=== PATIENT | male | born 1935 | race Caucasian/White ===

== ENCOUNTER 2022-06-22 10:55 | Outpatient (CLI) | payer MEDICARE, SELFPAY ==
[2022-06-22 18:44] LABS: Basophils Absolute Auto 0.1 K/mm3 (0.0-0.1); Basophils Percent Auto 0.8 % (0.2-1.2); Eosinophils Absolute Auto 0.1 K/mm3 (0-0.3); Eosinophils Percent Auto 1.5 % (0-4.4); Hematocrit 42.7 % (42.0-52.0); Hemoglobin 13.1 g/dL (14.0-18.0); Immature Granulocyte Absolute 0.02 K/mm3 (0.00-0.031); Immature Granulocyte Percent A 0.3 % (0-0.5); Lymphocytes Absolute Auto 1.01 K/mm3 (0.9-3.2); Lymphocytes Percent Auto 17.1 % (18.3-44.2); Mean Corpuscular HGB Conc 30.7 g/dl (32-36); Mean Corpuscular Hemoglobin 28.5 pg (26-34); Mean Platelet Volume 9.6 fl (7.4-10.4); Monocytes Absolute Auto 0.5 K/mm3 (0.1-0.6); Monocytes Percent Auto 8.8 % (2.6-8.5); Neutrophils Absolute Auto 4.2 K/mm3 (1.3-6.7); Neutrophils Percent Auto 71.5 % (45.5-73.1); Platelet Count Result 204 k/mm3 (150-375); Red Blood Count 4.59 M/mm3 (4.6-6.20); Red Cell Distribution Width 15.9 % (11.5-14.5); White Blood Count 5.9 K/mm3 (4.5-10.0)
[2022-06-22 19:03] LABS: Alanine Aminotransferase 15 U/L (6-50); Albumin Level 4.2 g/dL (3.5-5.1); Alkaline Phosphatase 114 U/L (38-126); Anion Gap 9 mmol/L (8-16); Aspartate Amino Transferase 71 U/L (17-59); Bilirubin,Total 1.1 mg/dL (0.2-1.3); Blood Urea Nitrogen 12 mg/dL (9-20); Calcium 9.3 mg/dL (8.4-10.2); Carbon Dioxide 30 mmol/L (22-30); Chloride 103 mmol/L (98-107); Cholesterol 166 mg/dL (0-200); Estimated Glomerular Filt Rate > 60; Glucose 80 mg/dL (65-110); HDL Direct 42 mg/dL; Potassium 4.2 mmol/L (3.4-5.0); Sodium 142 mmol/L (137-145); Triglycerides 91 mg/dL (<150)
[2022-06-22 19:14] LABS: LDL Cholesterol Direct 85 mg/dL
[2022-06-22 19:34] LABS: Prostate Specific Antigen 9.6 ng/mL (< OR = 4.0)
== END 2022-06-22 10:56 | disposition home or self-care (01) ==
PROVIDERS: PCP Family Medicine; Visit Provider Family Medicine
DX: F41.9 Anxiety disorder, unspecified (principal); I10 Essential (primary) hypertension; Z12.5 Encounter for screening for malignant neoplasm of prostate
CPT/HCPCS: 36415; 80053; 80061; 84153; 85025; G0103

== ENCOUNTER 2022-07-19 10:37 | Outpatient (CLI) | payer MEDICARE, SELFPAY ==
[2022-07-19 19:22] LABS: Alanine Aminotransferase 14 U/L (6-50); Albumin Level 4.2 g/dL (3.5-5.1); Alkaline Phosphatase 111 U/L (38-126); Aspartate Amino Transferase 18 U/L (17-59); Bilirubin,Total 1.3 mg/dL (0.2-1.3)
[2022-07-19 19:53] LABS: Prostate Specific Antigen 8.1 ng/mL (< OR = 4.0)
[2022-07-19 20:52] LABS: Hepatitis B Surface Antigen Negative (Negative)
[2022-07-19 20:58] LABS: HAV RESULT Negative (Negative); Hepatitis B Core IgM Result Negative (Negative)
[2022-07-19 21:10] LABS: Hepatitis C Virus Antibody Negative (Negative)
== END 2022-07-19 10:38 | disposition home or self-care (01) ==
LOC: ANHBWCLAB 10:39
PROVIDERS: PCP Family Medicine; Visit Provider Family Medicine
DX: R74.8 Abnormal levels of other serum enzymes (principal); Z12.5 Encounter for screening for malignant neoplasm of prostate; R74.01 Elevation of levels of liver transaminase levels
CPT/HCPCS: 36415; 80074; 80076; 84153; G0103

== ENCOUNTER 2022-08-25 01:19 | Day surgery (SDC) | payer MEDICARE, SELFPAY ==
[2022-08-13 14:15] VITALS: BMI 18.5
[2022-08-25 07:48] VITALS: BP 147/91; PULSE 73; RESP 20; TEMP 35.9; O2SAT 92; BMI 18.6
[2022-08-25] MEDS: LACTATED RINGERS 1,000 ML 150 ML IV CONT (07:59)
--- NOTE | 2022-08-25 08:01 | WPDANESEPPF ---
Anes - Initial Pre Proc Eval Procedure: Operation Date: 08/25/22 09:15 Proposed Procedures p Colonoscopy - Alexander Hinson MD Date/Time: 08/25/22 08:01 Surgeon: Alexander Hinson MD Pre Op Diagnosis: positive cologuard Patient Data Age: 87 Gender: M Height: 1.68 m Weight: 52.5 kg Last Vital Signs Temp 96.6 F L 08/25/22 07:48 Pulse 73 08/25/22 07:48 Resp 20 08/25/22 07:48 BP 147/91 H 08/25/22 07:48 Pulse Ox 92 08/25/22 07:48 O2 Del Method Nasal Cannula 08/25/22 07:48 O2 Flow Rate 3 08/25/22 07:48 Allergies Allergy/AdvReac Type Severity Reaction Status Date / Time No Known Allergies Allergy Verified 08/25/22 07:47 Home Medications Medication Instructions Recorded Confirmed Type amlodipine 5 mg tablet 5 mg PO DAILY #90 tabs 07/14/22 08/13/22 Rx losartan 100 1 tablet PO DAILY #90 tabs 07/14/22 08/13/22 Rx mg-hydrochlorothiazide 12.5 mg tablet trazodone 50 mg tablet 50 mg PO QHS PRN insomnia #90 tabs 07/20/22 08/13/22 Rx albuterol sulfate 90 mcg/actuation 1 - 2 inh inhalation Q4-6H PRN 08/11/22 08/13/22 Rx aerosol inhaler shortness of breath or wheezing #8.5 grams fluticasone fur. 100 mcg-umeclid 1 inh inhalation Q24H #60 ea 08/11/22 08/13/22 Rx 62.5 mcg-vilant 25 mcg inhalat.powder (Trelegy Ellipta) fluticasone propionate 50 1 spray intranasal BID #16 grams 08/11/22 08/13/22 Rx mcg/actuation nasal spray,suspension (Allergy Relief (fluticasone)) alprazolam 0.25 mg BYMOUTH DAILY PRN Anxiety 08/16/22 08/25/22 Rx #30 tabs alprazolam 0.25 mg tablet 0.25 mg PO DAILY #30 tabs 08/16/22 08/25/22 Rx Patient hx anesthesia problems: none Family hx anesthesia problems: none Results Review: All pre-operative results and documents have been reviewed as part of the pre-operative evaluation. [facility] Family History Family History Father Hypertension Heart disease Social History Social History (Updated 07/19/22 @ 10:28 by Prem Alejandro APRN) Social History: Smokes 8-10 cigs/week on 1 day only. Smoking packs per day: 2 Smoking cigarettes per day: 40.0 Years smoked: 50 Smoking pack-years: 100.00 Smoking status: Former smoker Tobacco type: cigarettes Alcohol intake: never Substance use: never Substance use type: does not use Living arrangements: with family Additional living arrangements comments: with sonBryson Gender identity (if verbalized by the patient): Male Spiritual care concerns: No Agree to blood products: Yes Anes - Eval Final PreProcedure Day of Procedure 08/25/22 08:01 Patient weight: normal Heart: regular rate and rhythm Lungs: clear to auscultation Airway: Mallampati scale class II Neurological: alert and oriented Last oral intake: >/= 8 hours ASA classification: III Emergent: no Anesthetic plan: proceed Anesthesia type and monitoring: general GIVS and standard monitoring Results Review: All pre-operative results and documents have been reviewed as part of the pre-operative evaluation. Informed Consent: The patient's anesthetic plan and its attendant risks and benefits were discussed with the patient/family/POA. Questions were solicited and answers provided to the satisfaction of the patient/family/POA.
--- NOTE | 2022-08-25 08:52 | PM.HPGS ---
History of Present Illness History of Present Illness Consent: Risks, benefits, and alternatives have been discussed and questions answered. Patient agrees to proceed with procedure. Chief complaint: positive cologuard Narrative: Shorty Sheldon is a 87 year old male here for positive cologuard, last colonoscopy 20 years ago Review of Systems Constitutional: Constitutional: Denies headache(s) and Denies weakness Eyes: Eyes: Denies blurry vision ENT: Reports Normal hearing present, Denies headache(s) and Denies neck pain Cardiovascular: Cardiovascular: Denies chest pain and Denies dyspnea Respiratory: Respiratory: Denies dyspnea Gastrointestinal: Gastrointestinal: Reports no additional gastrointestinal complaints Genitourinary: Genitourinary: Denies dysuria Musculoskeletal: Musculoskeletal: Denies neck pain Integumentary/Breasts: Skin/Breast: Denies dry skin Neurologic: Reports Normal hearing present, Denies headache(s) and Denies weakness Psychiatric: Psychiatric: Denies anxiety Endocrine: Endocrine: Denies change in body appearance Hematologic/Lymphatic: Hematologic/Lymphatic: Denies easy bleeding Allergic/Immunologic: Allergic/Immunologic: Denies urticaria [facility] Family History Family History Father Hypertension Heart disease Social History Social History (Updated 07/19/22 @ 10:28 by Prem Alejandro, GRAZYNA) Social History: Smokes 8-10 cigs/week on 1 day only. Smoking packs per day: 2 Smoking cigarettes per day: 40.0 Years smoked: 50 Smoking pack-years: 100.00 Smoking status: Former smoker Tobacco type: cigarettes Alcohol intake: never Substance use: never Substance use type: does not use Living arrangements: with family Additional living arrangements comments: with sonBryson Gender identity (if verbalized by the patient): Male Spiritual care concerns: No Agree to blood products: Yes Meds Home Medications and Allergies Home Medications Medication Instructions Recorded Confirmed Type amlodipine 5 mg tablet 5 mg PO DAILY #90 tabs 07/14/22 08/13/22 Rx losartan 100 1 tablet PO DAILY #90 tabs 07/14/22 08/13/22 Rx mg-hydrochlorothiazide 12.5 mg tablet trazodone 50 mg tablet 50 mg PO QHS PRN insomnia #90 tabs 07/20/22 08/13/22 Rx albuterol sulfate 90 mcg/actuation 1 - 2 inh inhalation Q4-6H PRN 08/11/22 08/13/22 Rx aerosol inhaler shortness of breath or wheezing #8.5 grams fluticasone fur. 100 mcg-umeclid 1 inh inhalation Q24H #60 ea 08/11/22 08/13/22 Rx 62.5 mcg-vilant 25 mcg inhalat.powder (Trelegy Ellipta) fluticasone propionate 50 1 spray intranasal BID #16 grams 08/11/22 08/13/22 Rx mcg/actuation nasal spray,suspension (Allergy Relief (fluticasone)) alprazolam 0.25 mg BYMOUTH DAILY PRN Anxiety 08/16/22 08/25/22 Rx #30 tabs alprazolam 0.25 mg tablet 0.25 mg PO DAILY #30 tabs 08/16/22 08/25/22 Rx Allergies Allergy/AdvReac Type Severity Reaction Status Date / Time No Known Allergies Allergy Verified 08/25/22 07:47 Vital Signs Vital Signs - 24 hr 08/25/22 07:48 Temperature 96.6 F L Pulse Rate 73 Respiratory Rate 20 Blood Pressure 147/91 H Pulse Oximetry 92 Oxygen Delivery Nasal Cannula Oxygen Flow Rate 3 Exam Const: General: comfortable and no acute distress HENMT: Face/Nose/Sinus: Normal nares present Eyes: General: appearance normal, both eyes and all related structures Neck: Neck: no JVD Resp: Auscultation: clear to auscultation bilaterally Cardio: Rate: regular rate Rhythm: regular rhythm GI: Inspection: non-distended GI Palp: Yes Soft to palpation Skin: General skin exam: normal color Neuro: General: gait normal Speech: normal speech Extrem: General: normal to inspection Psych: Mental Status: mental status grossly normal Assessment and Plan Assessment and plan (1) Positive colorectal cancer screening using Cologuar
[2022-08-25 09:22] VITALS: BP 95/54; PULSE 69; RESP 19; O2SAT 100
[2022-08-25 09:32] VITALS: BP 104/57; PULSE 71; RESP 25; O2SAT 95
[2022-08-25 09:42] VITALS: BP 129/67; PULSE 65; RESP 24; O2SAT 94
== END 2022-08-25 09:54 | disposition home or self-care (01) ==
PROVIDERS: PCP Family Medicine; Visit Provider Internal Medicine Gastroenterology
PROC: 0DJD8ZZ Inspection of Lower Intestinal Tract, Via Natural or Artificial Opening Endoscopic (ICD-10-PCS; CPT 45378; principal; 2022-08-25 09:15)
DX: R19.5 Other fecal abnormalities (principal); D12.0 Benign neoplasm of cecum; D12.4 Benign neoplasm of descending colon; D12.2 Benign neoplasm of ascending colon; K57.30 Diverticulosis of large intestine without perforation or abscess without bleeding; K64.8 Other hemorrhoids; Z79.51 Long term (current) use of inhaled steroids; Z87.891 Personal history of nicotine dependence
CPT/HCPCS: 45385; 45380; 88305; J2704; J7120

== ENCOUNTER 2022-12-27 11:28 | Outpatient (CLI) | payer MEDICARE, SELFPAY ==
[2022-12-27 19:54] LABS: Alanine Aminotransferase 16 U/L (6-50); Albumin Level 4.2 g/dL (3.5-5.1); Alkaline Phosphatase 88 U/L (38-126); Anion Gap 4 mmol/L (8-16); Aspartate Amino Transferase 29 U/L (17-59); Bilirubin,Total 1.1 mg/dL (0.2-1.3); Blood Urea Nitrogen 21 mg/dL (9-20); Calcium 9.2 mg/dL (8.4-10.2); Carbon Dioxide 31 mmol/L (22-30); Chloride 105 mmol/L (98-107); Cholesterol 145 mg/dL (0-200); Estimated Glomerular Filt Rate 52; Glucose 93 mg/dL (65-110); HDL Direct 45 mg/dL; Potassium 4.6 mmol/L (3.4-5.0); Sodium 140 mmol/L (137-145); Triglycerides 99 mg/dL (<150)
[2022-12-27 19:58] LABS: Basophils Percent Auto 0.8 % (0.2-1.2); Eosinophils Absolute Auto 0.1 K/mm3 (0-0.3); Hematocrit 42.5 % (42.0-52.0); Hemoglobin 13.2 g/dL (14.0-18.0); Immature Granulocyte Absolute 0.01 K/mm3 (0.00-0.031); Immature Granulocyte Percent A 0.2 % (0-0.5); Lymphocytes Absolute Auto 0.92 K/mm3 (0.9-3.2); Lymphocytes Percent Auto 18.3 % (18.3-44.2); Mean Corpuscular HGB Conc 31.1 g/dl (32-36); Mean Corpuscular Volume 93.4 fl (80-100); Mean Platelet Volume 11.1 fl (7.4-10.4); Monocytes Absolute Auto 0.4 K/mm3 (0.1-0.6); Monocytes Percent Auto 8.3 % (2.6-8.5); Neutrophils Absolute Auto 3.6 K/mm3 (1.3-6.7); Neutrophils Percent Auto 71.4 % (45.5-73.1); Platelet Count Result 198 k/mm3 (150-375); Red Blood Count 4.55 M/mm3 (4.6-6.20); Red Cell Distribution Width 15.6 % (11.5-14.5)
[2022-12-27 20:05] LABS: LDL Cholesterol Direct 70 mg/dL
[2022-12-27 20:22] LABS: Prostate Specific Antigen 7.2 ng/mL (< OR = 4.0)
== END 2022-12-27 11:29 | disposition home or self-care (01) ==
PROVIDERS: PCP Family Medicine; Visit Provider Family Medicine
DX: J44.9 Chronic obstructive pulmonary disease, unspecified (principal); F41.9 Anxiety disorder, unspecified; I10 Essential (primary) hypertension; R74.8 Abnormal levels of other serum enzymes; R97.20 Elevated prostate specific antigen [PSA]; R19.5 Other fecal abnormalities; Z99.81 Dependence on supplemental oxygen; Z72.0 Tobacco use; Z12.5 Encounter for screening for malignant neoplasm of prostate
CPT/HCPCS: 36415; 80053; 80061; 84153; 85025; G0103

== ENCOUNTER 2023-01-26 09:53 | Outpatient (CLI) | payer MEDICARE, SELFPAY | END 2023-01-26 09:54 | disposition home or self-care (01) | PROVIDERS: PCP Family Medicine; Visit Provider Nurse Practitioner Family | DX: R97.20 Elevated prostate specific antigen [PSA] (principal); Z12.5 Encounter for screening for malignant neoplasm of prostate | CPT/HCPCS: 36415; 84153; G0103 ==

== ENCOUNTER 2023-07-25 08:05 | Outpatient (CLI) | payer MEDICARE, SELFPAY ==
[2023-07-25 19:13] LABS: Hematocrit 40.1 % (42.0-52.0); Hemoglobin 12.5 g/dL (14.0-18.0); Mean Corpuscular HGB Conc 31.2 g/dl (32-36); Mean Corpuscular Hemoglobin 29.5 pg (26-34); Mean Corpuscular Volume 94.6 fl (80-100); Mean Platelet Volume 10.8 fl (7.4-10.4); Platelet Count Result 209 k/mm3 (150-375); Red Blood Count 4.24 M/mm3 (4.6-6.20); Red Cell Distribution Width 14.5 % (11.5-14.5); White Blood Count 6.3 K/mm3 (4.5-10.0)
[2023-07-25 19:35] LABS: Alanine Aminotransferase 28 U/L (6-50); Albumin Level 4.2 g/dL (3.5-5.1); Alkaline Phosphatase 134 U/L (38-126); Anion Gap 2 mmol/L (8-16); Aspartate Amino Transferase 49 U/L (17-59); Bilirubin,Total 1.1 mg/dL (0.2-1.3); Blood Urea Nitrogen 28 mg/dL (9-20); Calcium 9.3 mg/dL (8.4-10.2); Carbon Dioxide 38 mmol/L (22-30); Chloride 96 mmol/L (98-107); Estimated Glomerular Filt Rate 52; Glucose 107 mg/dL (65-110); Sodium 136 mmol/L (137-145)
[2023-07-25 19:58] LABS: Vitamin D 25 Hydroxy 40.9 ng/mL
[2023-07-25 20:08] LABS: Prostate Specific Antigen 13.4 ng/mL (< OR = 4.0)
== END 2023-07-25 08:06 | disposition home or self-care (01) ==
PROVIDERS: PCP Family Medicine; Visit Provider Family Medicine
DX: Z12.5 Encounter for screening for malignant neoplasm of prostate (principal); R97.20 Elevated prostate specific antigen [PSA]; I10 Essential (primary) hypertension; F41.9 Anxiety disorder, unspecified; J44.9 Chronic obstructive pulmonary disease, unspecified; R74.8 Abnormal levels of other serum enzymes; R19.5 Other fecal abnormalities; Z99.81 Dependence on supplemental oxygen; Z72.0 Tobacco use; Z79.899 Other long term (current) drug therapy
CPT/HCPCS: 36415; 80053; 82306; 84153; 85027; G0103

== ENCOUNTER 2024-01-29 19:17 | Inpatient (IN) | payer MEDICARE, SELFPAY ==
[2024-01-29] VITALS (7 sets, daily range): BP systolic 106–121; BP diastolic 55–63; PULSE 96–111; RESP 16–25; TEMP 35.9; O2SAT 93–97
--- NOTE | ~2024-01-29 | CT_ITS ---
EXAMINATION:CT diagnostic chest wo con DATE: 01/30/2024 13:30 INDICATION: Chronic obstructive pulmonary disease. TECHNIQUE: Computed tomography (CT) of the chest was performed without intravenous contrast. Automate d exposure control and iterative reconstruction technique were employed. The dose-length product (DLP ) was 153.92 mGy-cm. COMPARISON: Chest single view 01/29/2024 FINDINGS: There is severe emphysema. There is mild scarring at right lung apex. There is mild atelect asis bilaterally. There are peripheral airspace opacities in right upper lobe and right lower lobe. T here is a small right pleural effusion. There is a trace left pleural effusion. The heart size is nor mal. There are coronary artery calcifications. There is a trace pericardial effusion. Calcified left hilar and mediastinal lymph nodes are consistent with old granulomatous disease. There is a borderlin e enlarged right paratracheal lymph node, likely reactive. There are cysts in the kidneys measuring u p to 2.7 cm on the left. There is calcified atherosclerosis of the aorta and many of the other arteri es. There is thoracic kyphosis and mild spondylosis. IMPRESSION: 1. Mild peripheral airspace opacities in right upper lobe and right lower lobe, consistent with pneum onia. Noncontrast low-dose chest CT is recommended in 3 months to exclude malignancy. 2. Small right pleural effusion. 3. Severe emphysema. Reviewed, dictated and finalized at location E. IMPRESSION: 1. Mild peripheral airspace opacities in right upper lobe and right lower lobe, consistent with pneumonia. Noncontrast low-dose chest CT is recommended in 3 m onths to exclude malignancy. 2. Small right pleural effusion. 3. Severe emphysema.
--- NOTE | ~2024-01-29 | XR_ITS ---
EXAMINATION: XR chest 1V portable DATE: 01/29/2024 20:59 INDICATION: Altered mental status. TECHNIQUE: A single frontal view of the chest was obtained on 2 radiographs. COMPARISON: None. FINDINGS: The lungs are hyperexpanded with lucencies, consistent with emphysema. There are interstiti al opacities in the mid and lower lung zones. No pleural effusion or pneumothorax. The heart size is normal. IMPRESSION: 1. Emphysema. 2. Interstitial opacities in the mid and lower lung zones, consistent with atelectasis/scarring or le ss likely mild pulmonary edema. Reviewed, dictated and finalized at location E. IMPRESSION: 1. Emphysema. 2. Interstitial opacities in the mid and lower lung zones, consistent with atel ectasis/scarring or less likely mild pulmonary edema.
--- NOTE | ~2024-01-29 | CT_ITS ---
EXAMINATION: CT brain wo con DATE: 01/29/2024 22:09 INDICATION: Altered mental status. Lethargy. TECHNIQUE: Computed tomography (CT) of the head was performed without intravenous contrast. The mA wa s adjusted according to patient size. Iterative reconstruction technique was employed. The dose-lengt h product was 681.00 mGy-cm. COMPARISON: None FINDINGS: There is diffuse brain volume loss. There is no acute intracranial hemorrhage, acute infarc tion, or abnormal intracranial mass lesion. There is prominent extra-axial fluid adjacent to the fron awilda lobes measuring up to 11 mm in thickness on the left and 7 mm in thickness on the right. There ar e scattered areas of low attenuation in the cerebral white matter, which is within normal limits for the patient's age. The ventricles are normal in size. There is mild mucosal thickening in the ethmoid sinuses. There is a left mastoid effusion. There is cerumen in left external auditory canal. The orb its are normal. IMPRESSION: 1. Prominent extra-axial fluid adjacent to the frontal lobes, which may be normal subarachnoid space with brain volume loss or small chronic subdural hematomas. Reviewed, dictated and finalized at location E. IMPRESSION: 1. Prominent extra-axial fluid adjacent to the frontal lobes, which may be norm al subarachnoid space with brain volume loss or small chronic subdural hematoma s.
[2024-01-29 20:12] LABS: Alveolar/Arterial O2 Gradient 121.6 mmHg; Base Excess ABG 2.3 mEq/l (+/-2.0); Fractional Inspired Oxygen 44 %; HCO3 ABG 31.1 mEq/l (22.0-26.0); Oxygen Content ABG 15.3 %vol (16.0-22.0); Oxygen Saturation ABG 97.1 % (95.0-100.0); Oxyhemoglobin 95.8 % THb (90.0-100.0); PO2 ABG 109.7 mmHg (80.0-100.0); PO2 FiO2 Ratio Arterial Blood 2.49 %; Total Hemoglobin 11.2 g/dL (12.0-18.0)
[2024-01-29 20:14] LABS: Device NASAL CANNULA; Modified Allen's Test Pass; PCO2 ABG 72.3 mmHg (35.0-45.0); Site Drawn RIGHT RADIAL; pH ABG 7.251 (7.350-7.450)
[2024-01-29 20:50] LABS: Basophils Percent Auto 0.7 % (0.2-1.2); Eosinophils Absolute Auto 0.1 K/mm3 (0-0.3); Eosinophils Percent Auto 0.9 % (0-4.4); Hematocrit 35.7 % (42.0-52.0); Hemoglobin 10.7 g/dL (14.0-18.0); Immature Granulocyte Absolute 0.02 K/mm3 (0.00-0.031); Immature Granulocyte Percent A 0.4 % (0-0.5); Lymphocytes Absolute Auto 0.98 K/mm3 (0.9-3.2); Lymphocytes Percent Auto 17.8 % (18.3-44.2); Mean Corpuscular Hemoglobin 28.6 pg (26-34); Mean Corpuscular Volume 95.5 fl (80-100); Mean Platelet Volume 10.6 fl (7.4-10.4); Monocytes Absolute Auto 0.5 K/mm3 (0.1-0.6); Monocytes Percent Auto 9.4 % (2.6-8.5); Neutrophils Absolute Auto 3.9 K/mm3 (1.3-6.7); Neutrophils Percent Auto 70.8 % (45.5-73.1); Platelet Count Result 231 k/mm3 (150-375); Red Blood Count 3.74 M/mm3 (4.6-6.20); White Blood Count 5.5 K/mm3 (4.5-10.0)
[2024-01-29 21:00] LABS: Alanine Aminotransferase 19 U/L (6-50); Albumin Level 3.8 g/dL (3.5-5.1); Alkaline Phosphatase 113 U/L (38-126); Anion Gap 3 mmol/L (4-12); Aspartate Amino Transferase 20 U/L (17-59); Bilirubin,Total 0.8 mg/dL (0.2-1.3); Blood Urea Nitrogen 26 mg/dL (9-20); Calcium 9.5 mg/dL (8.4-10.2); Carbon Dioxide 33 mmol/L (22-30); Chloride 103 mmol/L (98-107); Estimated CRCL calculation 20 ml/min; Estimated Glomerular Filt Rate 48; Glucose 101 mg/dL (65-110); Magnesium 2.2 mg/dL (1.6-2.3); Potassium 4.2 mmol/L (3.4-5.0); Sodium 139 mmol/L (137-145)
[2024-01-29 21:07] LABS: Prothrombin Time 14.2 Seconds (11.1-14.7)
[2024-01-29 21:08] LABS: Partial Thromboplastin Time 38.6 Seconds (22.3-36.8)
[2024-01-29 21:13] LABS: NT Pro B Type Natriuretic Pept 3220 pg/mL (19.9-100); Troponin I 0.052 ng/mL (0.000-0.034)
[2024-01-29 21:25] LABS: Procalcitonin 0.1 ng/mL
[2024-01-29 21:28] LABS: Appearance Urine Clear (Clear); Bacteria Urine None Seen /hpf; Bilirubin Urine Negative (Negative); Blood Urine Negative (Negative); Color Urine Yellow (Yellow); Glucose Urine UA Negative (Negative); Ketones Urine Negative (Negative); Leukocyte Esterase Ur Negative LEU/UL (Negative); Need Manual Microscopic Reviewed; Nitrate Urine Negative (Negative); Protein Urine 1+ mg/dL (Negative); RBC Urine 0-2 /hpf (0-2); Specific Grav Ur 1.012 (1.001-1.035); Squamous Epithelial Cell Urine None Seen /hpf (Few); Urobilinogen Urine 0.2 mg/dL (<2.0); WBC Urine 0-5 /hpf (0-3); pH Urine 5.5 (5.0-9.0)
[2024-01-29 21:29] LABS: Add Urine Microscopic? YES
[2024-01-29] MEDS: SODIUM CHLORIDE 0.9% IV 1,000 ML 999 ML IV CONT (21:49)
--- NOTE | 2024-01-29 21:55 | PC.NURSE ---
Pt to CT at this time by RT and CT.
--- NOTE | 2024-01-29 22:21 | ED.GENADULT ---
HPI - General Adult General Chief complaint: Altered Mental Status Stated complaint: lethargy Time Seen by Provider: 01/29/24 19:35 History of Present Illness HPI narrative: Patient 88-year-old gentleman who presents emergency department chief complaint of altered mental status. Patient has prior history of COPD and smoked cigarettes yesterday the patient was less responsive this evening the family noticed that he would minimally interact with them. They report no fever no vomiting no complaints of chest pain or shortness of breath the patient is able answer questions with mildly verbally stimulated. Related Data Allergies Allergy/AdvReac Type Severity Reaction Status Date / Time No Known Allergies Allergy Verified 07/25/23 07:37 Review of Systems Review of Systems: A 10 system review of systems was completed on the patient and is negative except for what is stated in the HPI. Nursing and ancillary documentation was reviewed. [facility] Family History Family History Father Hypertension Heart disease Social History Social History Smoking packs per day: 3 Smoking cigarettes per day: 60.0 Years smoked: 55 Smoking pack-years: 165.00 Smoking status: Former smoker Tobacco type: cigarettes Second hand tobacco smoke exposure: Yes Smoking end date: 10/10/16 Alcohol intake: never Substance use: never Substance use type: does not use Lack of Transportation: No Lack of Food: Never True Current Housing: I Have Housing Concerned About Future Housing: No Difficulty Paying Gas/Electric Bills: No Difficulty Paying for Meds: No Currently Unemployed: No Education: High School Diploma/GED Difficulty w/ Childcare or Family Care: No Living arrangements: with family Additional living arrangements comments: with sonBryson Gender identity (if verbalized by the patient): Male Spiritual care concerns: No Agree to blood products: Yes Exam Narrative: GENERAL: Ill-appearing, thin, and in no acute distress. Slow to respond HEAD: Normocephalic, atraumatic. EYES: PERRLA and EOMI. ENT: Nares clear, no rhinorrhea or epistaxis. Mucous membranes moist. NECK: Supple. CHEST: Clear to auscultation. No respiratory distress. HEART: Regular rate and rhythm. No murmur heard. Normal peripheral pulses. ABDOMEN: Soft, nontender, nondistended, normal active bowel sounds. EXTREMITIES: Normal range of motion. No edema. SKIN: Warm, dry, no rash. NEURO: No focal deficits. Alert and oriented x3. PSYCH: Normal mood and affect. Course Vital Signs Vital signs: Vital Signs Temperature 35.9 C L 01/29/24 19:18 Pulse Rate 101 H 01/29/24 19:18 Respiratory Rate 20 01/29/24 19:18 Blood Pressure 121/59 L 01/29/24 19:18 Pulse Oximetry 97 01/29/24 19:18 Oxygen Delivery Nasal Cannula 01/29/24 19:18 Oxygen Flow Rate 4 01/29/24 19:18 Temperature 35.9 C L 01/29/24 19:18 Pulse Rate 104 H 01/29/24 23:56 Respiratory Rate 18 01/29/24 23:56 Blood Pressure 119/55 L 01/29/24 23:56 Pulse Oximetry 96 01/29/24 23:56 Oxygen Delivery BiPAP 01/29/24 20:29 Oxygen Flow Rate 4 01/29/24 19:18 Medical Decision Making [facility] Narrative Medical decision making narrative: Differential diagnosis includes pneumonia, CHF, COPD exacerbation, intracranial hemorrhage, ACS EKG showed new onset atrial fibrillation. 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 He was discussed with the patient's family overall goals of treatment reported the patient expressed many times that he is DNR and does not want extensive resuscitative performed not want intubation or CPR was discussed with the family that the chronic subdurals could be followed with MRI or could be managed conservatively. At this t
--- NOTE | 2024-01-29 22:25 | PC.NURSE ---
phlebotomy at bedside to get set of cultures and lactic acid
[2024-01-29] MEDS: ASPIRIN 81 MG CHEWABLE TABLET 324 MG PO (22:43)
[2024-01-29 22:51] LABS: Lactic Acid Reflex 1.4 mmol/L (0.7-2.0)
[2024-01-29 23:07] LABS: Troponin I 0.045 ng/mL (0.000-0.034)
[2024-01-29 23:21] LABS: Influenza A QL RT-PCR Negative (Negative); Influenza B QL RT-PCR Negative (Negative); RSV RNA, RT-PCR Negative (Negative); SARS-CoV-2 RNA PCR Negative (Negative)
[2024-01-30] VITALS (24 sets, daily range): BP systolic 107–158; BP diastolic 53–88; PULSE 58–119; RESP 16–27; TEMP 36.4–36.9; O2SAT 93–100; BMI 14.3
--- NOTE | 2024-01-30 01:04 | PC.NURSE ---
report called at 0029. RT to come to ED to xfr pt upstairs w this RN.
--- NOTE | 2024-01-30 01:51 | ADMGEN ---
This patient, Shorty Sheldon, was admitted to IMU Room 205-01. Patient/family oriented to hospital policies and general routines including ID bracelet, bed and alarms, visiting hours, pain management, procedures, bathroom and other care routines, personal items, smoking policy, room service/diet, and visiting hours. Information on how to activate the Rapid Response Team has been discussed. Patient/Family are encouraged to report perceived risks to care and to ask questions if they do not understand what they are told or what they should do.
[2024-01-30] MEDS: methylPREDNISolone SOD SUCC 125 MG VIAL IV PUSH (02:53)
[2024-01-30 03:27] LABS: Troponin I 0.041 ng/mL (0.000-0.034)
[2024-01-30 05:20] LABS: Alveolar/Arterial O2 Gradient 43.5 mmHg; Base Excess ABG -0.1 mEq/l (+/-2.0); Carboxyhemoglobin 0.1 % THb (0-2.0); Fractional Inspired Oxygen 28 %; HCO3 ABG 27.8 mEq/l (22.0-26.0); Oxygen Content ABG 14.9 %vol (16.0-22.0); Oxygen Saturation ABG 94.4 % (95.0-100.0); Oxyhemoglobin 94.8 % THb (90.0-100.0); PO2 ABG 82.7 mmHg (80.0-100.0); PO2 FiO2 Ratio Arterial Blood 2.95 %; Reduced Hemoglobin 5.1 %THb (0-5.0); Total Hemoglobin 11.1 g/dL (12.0-18.0)
[2024-01-30 05:22] LABS: Device NON-INVASIVE VENT; Modified Allen's Test Pass; PCO2 ABG 62.2 mmHg (35.0-45.0); Site Drawn RIGHT BRACHIAL; pH ABG 7.268 (7.350-7.450)
[2024-01-30 05:23] LABS: Non-Invasive Expiratory Pressure 8 CMH2O; Non-Invasive Inspiratory Pressure 12 CMH2O; Non-Invasive Vent Rate 18 /MIN
[2024-01-30] MEDS: IPRATROPIUM 0.5 MG/ALBUTEROL SULFATE 2.5 MG AMPUL.NEB 3 ML INHALATION (08:10)
[2024-01-30 08:33] LABS: Alveolar/Arterial O2 Gradient 49.4 mmHg; Base Excess ABG -2.6 mEq/l (+/-2.0); Fractional Inspired Oxygen 28 %; HCO3 ABG 25.2 mEq/l (22.0-26.0); Oxygen Content ABG 15.5 %vol (16.0-22.0); Oxygen Saturation ABG 94.1 % (95.0-100.0); Oxyhemoglobin 94.6 % THb (90.0-100.0); PCO2 ABG 58.2 mmHg (35.0-45.0); PO2 ABG 81.6 mmHg (80.0-100.0); PO2 FiO2 Ratio Arterial Blood 2.91 %; Total Hemoglobin 11.6 g/dL (12.0-18.0)
--- NOTE | 2024-01-30 08:34 | PM.IMHP ---
H&P: HPI History of Present Illness Date/Time: 01/30/24 08:34 Chief Complaint: altered mental status Narrative: Patient 88-year-old gentleman with history of COPD, tobacco dependent, hypertension, anxiety,who presents emergency department chief complaint of altered mental status.? patient family notice was less responsive yesterday. patient has history of COPD, smokes cigarettes. patient states he started to smoke cigarettes in past more days, and then patient started feeling tired, and also developed,dyspnea. since yesterday, patient has been feeling drowsy. patient has some cough, patient as dry cough. upon arrival in the ED, patient found have hypothermia, 35.6, tachycardia tachypnea, blood pressure stable, patient was found have hypoxemia, lab showed hemoglobin 10.7, elevated BUN creatinine 26/1.4, ABG showed decompensated respiratory acidosis, pH 7.25, pCO2 72.3. X-ray shows interstitial opacity. patient was placed on BiPAP PMFSH Family History Family History Father Hypertension Heart disease Social History Social History Smoking packs per day: 0.5 Smoking cigarettes per day: 10.0 Years smoked: 65 Smoking pack-years: 32.50 Smoking status: Current every day smoker Tobacco type: cigarettes Second hand tobacco smoke exposure: Yes Alcohol intake: former Substance use: never Substance use type: does not use Do You Feel Safe in your Home?: Yes Lack of Transportation: No Lack of Food: Never True Current Housing: I Have Housing Concerned About Future Housing: No Difficulty Paying Gas/Electric Bills: No Difficulty Paying for Meds: No Currently Unemployed: No Education: High School Diploma/GED Difficulty w/ Childcare or Family Care: No Living arrangements: with family Additional living arrangements comments: with sonBryson Gender identity (if verbalized by the patient): Male Spiritual care concerns: No Agree to blood products: Yes Meds Home Medications and Allergies Home Medications Medication Instructions Recorded Confirmed Type fluticasone fur. 100 mcg-umeclid 1 inh inhalation Q24H #60 ea 01/10/23 01/30/24 Rx 62.5 mcg-vilant 25 mcg inhalat.powder (Trelegy Ellipta) albuterol sulfate 2.5 mg/3 mL 2.5 mg (3 mL) inhalation Q6H PRN 06/14/23 01/30/24 Rx (0.083 %) solution for nebulization shortness of breath or wheezing #360 mL losartan 100 1 tablet PO DAILY #90 tabs 07/11/23 01/30/24 Rx mg-hydrochlorothiazide 12.5 mg tablet albuterol sulfate 90 mcg/actuation 1 - 2 inh inhalation Q4-6H PRN 09/08/23 01/30/24 Rx aerosol inhaler shortness of breath or wheezing #8.5 grams fluticasone propionate 50 1 spray intranasal BID #16 grams 09/08/23 01/30/24 Rx mcg/actuation nasal spray,suspension (Allergy Relief (fluticasone)) trazodone 50 mg tablet 50 mg PO QHS PRN insomnia #90 tabs 01/11/24 01/30/24 Rx alprazolam 0.25 mg tablet 0.25 mg PO DAILY PRN Anxiety 01/30/24 01/30/24 History Allergies Allergy/AdvReac Type Severity Reaction Status Date / Time No Known Allergies Allergy Verified 07/25/23 07:37 Vital Signs Vital Signs - 24 hr 01/29/24 19:18 01/29/24 20:29 01/29/24 20:27 Temperature 96.7 F L Pulse Rate 101 H Respiratory Rate 20 Blood Pressure 121/59 L Pulse Oximetry 97 94 93 Oxygen Delivery Nasal Cannula BiPAP BiPAP Oxygen Flow Rate 4 Fraction of Inspired Oxygen 01/29/24 20:25 01/29/24 22:27 01/29/24 23:14 Temperature Pulse Rate 102 H 96 111 H Respiratory Rate 25 H 20 16 Blood Pressure 106/63 107/63 Pulse Oximetry 94 97 95 Oxygen Delivery BiPAP Oxygen Flow Rate Fraction of Inspired Oxygen 01/29/24 23:56 01/30/24 01:06 01/30/24 01:38 Temperature Pulse Rate 104 H 105 H 64 Respiratory Rate 18 18 23 H Blood Pressure 119/55 L 107/88 Pulse Oximetry 96 96 Oxy
[2024-01-30 08:35] LABS: pH ABG 7.255 (7.350-7.450)
[2024-01-30 08:36] LABS: Device NON-INVASIVE VENT; Modified Allen's Test Pass; Non-Invasive Expiratory Pressure 8 CMH2O; Non-Invasive Inspiratory Pressure 12 CMH2O; Non-Invasive Vent Rate 18 /MIN; Site Drawn RIGHT RADIAL
[2024-01-30] MEDS: DOXYCYCLINE HYCLATE 100 MG TABLET PO ×2 (08:57→20:32)
[2024-01-30] MEDS: ASPIRIN 81 MG CHEWABLE TABLET PO (08:57)
[2024-01-30] MEDS: hydroCHLOROthiazide 12.5 MG CAPSULE PO (08:57)
[2024-01-30] MEDS: LOSARTAN POTASSIUM 100 MG TABLET PO (08:58)
[2024-01-30] MEDS: methylPREDNISolone SOD SUCC 125 MG VIAL 60 MG IV PUSH (08:58)
--- NOTE | 2024-01-30 09:06 | PM.CNPUL ---
Assessment and Plan Assessment and plan (1) COPD (chronic obstructive pulmonary disease): Qualifiers: COPD type: unspecified COPD Qualified Code(s): J44.9 - Chronic obstructive pulmonary disease, unspecified Code(s): J44.9 - Chronic obstructive pulmonary disease, unspecified Status: Acute Assessment and Plan: Gold grade 4 group B COPD Patient previously followed in the Pulmonary Clinic in last seen on 09/24/2022. He has 100 pack year tobacco use, alpha 1 anti trypsin genotype MM, FEV1 14% predicted on 06/04/2019 with a ratio 40%. DLCO severely reduced. At that time he was on trelegy inhaler and his CAT score improved from a value of 20-16. He was on 2 to 2.5 L 24-7. Patient tells me 2 weeks ago he was doing very well at his baseline. He was able to walk 75-100 steps and 1 year ago he said he could walk 250 steps. He stops now because of dyspnea on exertion. He is wearing 2 L nasal cannula 247 and he checks his home pulse oximeter is 96-98%. Granddaughters are in the room and they confirmed that the patient has not had any exacerbations or hospitalizations over the last year. Patient states that he intermittently smokes. He last smokes 6 cigarettes on 01/28/2024 but had smoked for 17 days prior to that. currently the patient presents with altered mental status, acute on chronic hypercarbic and hypoxemic respiratory failure, with no change in his chronic cough, phlegm production or shortness of breath. Patient responded to noninvasive ventilation. Plan: I do not believe the patient has a COPD exacerbation and I will discontinue Solu-Medrol at this time. Patient is tachycardic and I will discontinue his DuoNebs and continue trelegy 100 inhaler. goal saturation 90-94%. Patient states he wears 2 L at home and his saturations are generally high 98%. Currently I decreased him to 1 L nasal cannula and his saturations remain 96%. I have talked to the nurse and will try to wean him off to room air if possible during the day. The patient tells me he takes Mucinex at home and I will start guaifenesin 1200 mg p.o. q.12 hours. I will order a CT scan of the chest to assess for any bacterial pneumonia. I will order an echocardiogram to assess LV function, RV function and valve function. Will follow with you. (2) Respiratory failure with hypoxia and hypercapnia: Code(s): J96.91 - Respiratory failure, unspecified with hypoxia; J96.92 - Respiratory failure, unspecified with hypercapnia Status: Acute Assessment and Plan: Patient with a history of severe COPD. Serum bicarbonate on 07/25/2023 was 38. ABG on admission on 6 L nasal cannula was 7.25/72/110. This has improved on BiPAP to 7.26/50 with patient has difficulty tolerating the BiPAP and says he can not wear it and he can not sleep with the machine on. 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 The patient cannot tolerate BiPAP. Plan: The patient told me he cannot tolerate the BiPAP as is uncomfortable for him to breathe and he could not sleep. I placed the patient on a noninvasive ventilation mode and adjusted the settings for comfort resulting in a rate of 16, tidal volume 450, EPAP 4, minimal inspiratory pressure 5, maximal inspiratory pressure 25, inspiratory time 1.0, rise of 3, 28% FiO2 with saturations 99%. I will place the patient on the hospital noninvasive ventilator with the AVAPS mode and the settings above and room air. I will obtain an overnight oximetry on room air and ABG prior to removal. I have contacted the laboratory coordinator and will initiate a home noninvasive ventilator. History of Present Illness History of Present Illness Consult date: 01/30/24 Chief complaint: Acute hyper apneic respiratory failure elevated t Narrative: 01/30/2024: This is a new
--- NOTE | 2024-01-30 09:24 | ECG_ITS ---
SEE SCANNED COPY FOR CONFIRMED REPORT MTDD
--- NOTE | 2024-01-30 10:50 | ECHO_ITS ---
Patient Info Name: Shorty Sheldon Age: 88 years : 1935 Gender: Male Ht: 68 in Wt: 94 lbs BSA: 1.41 m2 HR: 58 bpm BP: 138 / 88 mmHg Heart Rhythm: Sinus Rhythm Technical Quality: Good Exam Date: 01/30/2024 2:16 PM Exam Location: Echo Lab Patient Status: Inpatient Admit Date: 01/30/2024 Staff Ordering Physician: Isaac Jang MD Diesel Retrofit Designer: Catalina Weinstein RDCS Attending Provider: Aminah Hunter MD Referring Physician: Suhail HOLCOMB; Exam Type: CA echo doppler color flow Study Info Indications - MEDINA, COPD Complete two-dimensional, color flow and Doppler transthoracic echocardiogram is performed. Summary 1. Left ventricular chamber dimension is normal. 2. Left ventricular systolic function is normal, estimated at 55-60%. 3. The left ventricular diastolic function is grade I diastolic dysfunction. 4. Right ventricular systolic function is normal. 5. There is mild aortic valve regurgitation. 6. There is mild tricuspid valve regurgitation. Left Ventricle Left ventricular chamber dimension is normal. Left ventricular systolic function is normal, estimated at 55-60%. There is no increased left ventricular wall thickness. The left ventricular diastolic function is grade I diastolic dysfunction. Right Ventricle Right ventricular chamber dimension is normal. Right ventricular systolic function is normal. Left Atria Left atrial chamber dimension is normal. Right Atria Right atrial chamber dimension is normal. Atrial Septum Intact interatrial septum visualized by color flow imaging. Aortic Valve The aortic valve is trileaflet. There is no aortic valve stenosis. There is mild aortic valve regurgitation. There is mild aortic valve calcification. Pulmonic Valve The pulmonic valve is not well visualized. Mitral Valve There is trace mitral valve regurgitation. Tricuspid Valve There is mild tricuspid valve regurgitation. Pericardium/Pleural There is no pericardial effusion. Inferior Vena Cava Normal inferior vena cava with >50% collapse upon inspiration consistent with normal right atrial pressure, 3 mmHg. Aorta The aortic root size at the sinus of Valsalva is normal. Left Ventricular Outflow Tract Name Value Normal LVOT 2D LVOT Diameter 2.1 cm LVOT Doppler LVOT Peak Gradient 2 mmHg LVOT Mean Gradient 1 mmHg LVOT VTI 10 cm LVOT VTI/AV VTI Ratio 0.5 LVOT Stroke Volume 34 ml LVOT CO 3.4 l/min LVOT CI 2.4 l/min/m2 Pulmonic Valve Name Value Normal RVOT Doppler RVOT Peak Gradient 2 mmHg PV Doppler PV Peak Gradient 3 mmHg Mitral Valve
--- NOTE | 2024-01-30 11:35 | PM.CNCAR ---
Assessment and Plan Assessment and plan (1) Atrial fibrillation: Code(s): I48.91 - Unspecified atrial fibrillation Status: Acute Assessment and Plan: He does have tachycardia and frequent atrial ectopy and premature ventricular contractions as well. However, no clear evidence of atrial fibrillation on telemetry or EKG. EKG personally reviewed by myself and Dr. Gaytan shows sinus tachycardia with frequent PAC's, PVC's, possible MAT as well. Atrial activity is present both on telemetry reviewed and EKG. Therefore, no need to consider anticoagulation. Given his severe underlying lung disease will not recommend any beta joshua for the tachycardia - since his respiratory condition is likely driving the tachycardia will recommend treatment of that per hospitalist any pulmonology. Echo has been ordered and is pending. Further recommendations to follow review of this study when it is available. (2) Respiratory failure with hypoxia and hypercapnia: Code(s): J96.91 - Respiratory failure, unspecified with hypoxia; J96.92 - Respiratory failure, unspecified with hypercapnia Status: Acute Assessment and Plan: ABG on admission 7.. He has severe COPD and possible pneumonia. He has improved with BiPAP and NIV, now on O2 per nasal cannula. (3) Atypical pneumonia: Code(s): J18.9 - Pneumonia, unspecified organism Status: Acute Assessment and Plan: Per pulmonology. (4) HTN (hypertension): Code(s): I10 - Essential (primary) hypertension Status: Acute Assessment and Plan: Generally at goal History of Present Illness History of Present Illness Consult date/time: 01/30/24 11:35 Requesting physician: Usman Christensen MD Consult reason: atrial fibrillation Reason For Visit: Acute hyper apneic respiratory failure elevated t Narrative: Shorty Sheldon is an 88 year old male with COPD and hypertension. He presents to the hospital with altered mental status and shortness of breath. Cardiology is consulted for atrial fibrillation. He denies having any known cardiac history aside from feeling skipped beats which were worked up with what sounds like with a stress test which he reports was negative. On telemetry he is tachycardic and has an irregular rhythm with frequent premature atrial and ventricular contractions, but does not have any clear evidence of atrial fibrillation. He denies feeling any palpitations or chest pain. Currently he is resting comfortably in bed on nasal cannula oxygen and has no complaints. He states his breathing has improved since admission. Review of Systems Review of Systems: All systems reviewed & are unremarkable except as noted in HPI and below PMFSH Family History Family History Father Hypertension Heart disease Social History Social History Smoking packs per day: 0.5 Smoking cigarettes per day: 10.0 Years smoked: 65 Smoking pack-years: 32.50 Smoking status: Current every day smoker Tobacco type: cigarettes Second hand tobacco smoke exposure: Yes Alcohol intake: former Substance use: never Substance use type: does not use Do You Feel Safe in your Home?: Yes Lack of Transportation: No Lack of Food: Never True Current Housing: I Have Housing Concerned About Future Housing: No Difficulty Paying Gas/Electric Bills: No Difficulty Paying for Meds: No Currently Unemployed: No Education: High School Diploma/GED Difficulty w/ Childcare or Family Care: No Living arrangements: with family Additional living arrangements comments: with sonBryson Gender identity (if verbalized by the patient): Male Spiritual care concerns: No Agree to blood products: Yes Meds Home Medications and Allergies Home Medications Medication Instructions Recorded Confirmed Type fluticasone
--- NOTE | 2024-01-30 13:50 | PCRCNOTE ---
DME- [facility]
--- NOTE | 2024-01-30 13:51 | PCRCNOTE ---
[facility]. I faxed ABG, pulmonary progress notes with verbiage for need of trilogy unit in home, face sheet to [facility] in office. He will fax over order form for Dr Jang to fill out and sign.
[2024-01-30] MEDS: FLUTICASONE PROPIONATE 0.05% NA SPR 16 GM BTL (*BKC) 1 SPRAY NASAL (15:59)
--- NOTE | 2024-01-30 19:00 | PC.NURSE ---
This nurse got report from Aline GRAF in the IMU.
--- NOTE | 2024-01-30 20:06 | PC.NURSE ---
This patient, Shorty Sheldon, was transferred to [facility] on 01/30/24. Personal belongings sent with patient. Report given to Aliyah. Appropriate documentation sent with patient.
[2024-01-30] MEDS: guaiFENesin 12 HR 600 MG TABCR 1200 MG PO (20:32)
[2024-01-31] VITALS (13 sets, daily range): BP systolic 126–179; BP diastolic 57–90; PULSE 48–113; RESP 18–24; TEMP 36.2–36.6; O2SAT 89–100
[2024-01-31 05:55] LABS: Alveolar/Arterial O2 Gradient 41.7 mmHg; Base Excess ABG 1.9 mEq/l (+/-2.0); Fractional Inspired Oxygen 21 %; HCO3 ABG 27.2 mEq/l (22.0-26.0); Oxygen Content ABG 12.6 %vol (16.0-22.0); PCO2 ABG 45.9 mmHg (35.0-45.0); PO2 ABG 53.1 mmHg (80.0-100.0); PO2 FiO2 Ratio Arterial Blood 2.53 %; Total Hemoglobin 10.4 g/dL (12.0-18.0); pH ABG 7.391 (7.350-7.450)
[2024-01-31 05:57] LABS: Oxyhemoglobin 86.3 % THb (90.0-100.0); Site Drawn RIGHT BRACHIAL
[2024-01-31 05:58] LABS: Device NON-INVASIVE VENT
[2024-01-31 05:59] LABS: Non-Invasive Vent Rate 16 /MIN
[2024-01-31 06:00] LABS: Non-Invasive Expiratory Pressure 4 CMH2O
[2024-01-31] MEDS: FLUTICASONE/UMECLIDIN/VILANTER 100-62.5-25 MCG ELLIPTA 1 PUFF INHALATION (07:36)
--- NOTE | 2024-01-31 08:07 | PM.IMPN ---
Progress Note: A&P Assessment and Plan (1) Acute and chronic respiratory failure, unspecified whether with hypoxia or hypercapnia: Code(s): J96.20 - Acute and chronic respiratory failure, unspecified whether with hypoxia or hypercapnia Status: Acute (2) COPD exacerbation: Code(s): J44.1 - Chronic obstructive pulmonary disease with (acute) exacerbation Status: Acute (3) Atypical pneumonia: Code(s): J18.9 - Pneumonia, unspecified organism Status: Acute (4) Tobacco use: Code(s): Z72.0 - Tobacco use Status: Acute (5) HTN (hypertension): Code(s): I10 - Essential (primary) hypertension Status: Acute Plan acute metabolic encephalopathy possible due to CO2 retention and polypharmacy CT of head shows no acute intracranial issues Neuro check Treat underlying disease COPD exacerbation, acute resp failure with hypoxemia and hypercapnia history of COPD, tobacco dependence X-ray shows interstitial opacity Possible atypical pneumonia , versus acute bronchitis continue fluticasone 50 mcg b.i.d., Trelegy Ellipta, DuoNeb scheduled q.6 hours, albuterol nebulizer q.4 hour as needed start doxycycline 100 mg b.i.d. p.o. Consult skirt trimmer for evaluation treatment appreciate pulmonology consultation, discontinue doxycycline and start ceftriaxone azithromycin, will provide patient AVAPS when patient is discharged new onset afib? appreciate cardiology consultation, consider MAT, possible resulting from COPD exacerbation, hypoxemia no need anticoagulation Follow echocardiogram anxiety Hold trazodone and Xanax because of her confusion Hypertension Continue losartan and hydrochlorothiazide daily p.o. patient may stay more than 2 midnights in the hospital Subjective Date/time seen: 01/31/24 08:07 Interval history: I saw and examined patient in presents of patient's son. Patient is feeling better, dyspnea is improving, still has a cough. Patient feels anxious. No new issue even overnight, Exam Narrative: GENERAL: Pleasant, in no acute distress. Well-nourished. - EYES: EOMI. Anicteric. - HENT: Moist mucous membranes. - LUNGS: decreased air entry bilateral, tachypnea no obvious respiratory distress - CARDIOVASCULAR: Regular rate and rhythm. No murmur. No JVD. - ABDOMEN: Soft, non-tender and non-distended. No palpable masses. - EXTREMITIES: No edema. Peripheral pulses 2+. Non-tender. - NEUROLOGIC: No focal neurological deficits. CN II-XII grossly intact. - PSYCHIATRIC: Awake, Alert and oriented x 3. Appropriate mood and affect. - SKIN: No rashes or lesions. Warm. - LYMPH: No cervical lymphadenopathy. Objective Data Vital Signs Vital Signs: Vital Signs - 24 hr 01/30/24 09:00 01/30/24 08:40 01/30/24 09:19 Temperature Pulse Rate 84 79 Respiratory Rate 20 20 Blood Pressure Pulse Oximetry 97 Oxygen Delivery Nasal Cannula Oxygen Flow Rate 2 Fraction of Inspired Oxygen 01/30/24 11:24 01/30/24 10:00 01/30/24 12:00 Temperature 98.5 F Pulse Rate 58 L 101 H Respiratory Rate 20 Blood Pressure 158/88 H Pulse Oximetry 93 94 Oxygen Delivery Nasal Cannula Oxygen Flow Rate 1 Fraction of Inspired Oxygen 01/30/24 12:00 01/30/24 15:28 01/30/24 16:00 Temperature 98.1 F Pulse Rate 58 L 60 119 H Respiratory Rate 18 Blood Pressure 138/63 Pulse Oximetry 100 Oxygen Delivery Oxygen Flow Rate Fraction of Inspired Oxygen 01/30/24 20:12 01/30/24 20:00 01/30/24 21:45 Temperature 98.4 F Pulse Rate 79 85 75 Respiratory Rate 16 21 H Blood Pressure 133/87 Pulse Oximetry 98 93 Oxygen Delivery BiPAP Oxygen Flow Rate Fraction of Inspired Oxygen 01/31/24 00:00 01/31/24 04:00 01/31/24 05:00 Temperature 97.8 F Pulse Rate 104 H 93 51 L Respiratory Rate 24 H Blood Pressure 126/57 L Pulse Oximetry 93 Oxygen Delivery Oxygen Flow Rate Fraction
[2024-01-31] MEDS: FLUTICASONE PROPIONATE 0.05% NA SPR 16 GM BTL (*BKC) 1 SPRAY NASAL ×2 (08:28→17:05)
[2024-01-31] MEDS: ASPIRIN 81 MG CHEWABLE TABLET PO (08:28)
[2024-01-31] MEDS: LOSARTAN POTASSIUM 100 MG TABLET PO (08:36)
[2024-01-31] MEDS: guaiFENesin 12 HR 600 MG TABCR 1200 MG PO ×2 (08:36→20:36)
[2024-01-31] MEDS: hydroCHLOROthiazide 12.5 MG CAPSULE PO (08:36)
--- NOTE | 2024-01-31 09:06 | PM.PNPUL ---
Progress Note: A&P Assessment and Plan (1) COPD (chronic obstructive pulmonary disease): Qualifiers: COPD type: unspecified COPD Qualified Code(s): J44.9 - Chronic obstructive pulmonary disease, unspecified Code(s): J44.9 - Chronic obstructive pulmonary disease, unspecified Status: Acute Assessment and Plan: Gold grade 4 group B COPD Patient previously followed in the Pulmonary Clinic in last seen on 09/24/2022. He has 100 pack year tobacco use, alpha 1 anti trypsin genotype MM, FEV1 14% predicted on 06/04/2019 with a ratio 40%. DLCO severely reduced. CT scan on 01/30/2024 with severe panlobular emphysema apices greater than bases. At that time he was on trelegy inhaler and his CAT score improved from a value of 20-16. He was on 2 to 2.5 L 24-7. He now has chronic hypercarbic respiratory failure. Patient tells me 2 weeks ago he was doing very well at his baseline. He was able to walk 75-100 steps and 1 year ago he said he could walk 250 steps. He stops now because of dyspnea on exertion. He is wearing 2 L nasal cannula 247 and he checks his home pulse oximeter is 96-98%. Granddaughters are in the room and they confirmed that the patient has not had any exacerbations or hospitalizations over the last year. Patient states that he intermittently smokes. He last smokes 6 cigarettes on 01/28/2024 but had smoked for 17 days prior to that. currently the patient presents with altered mental status, acute on chronic hypercarbic and hypoxemic respiratory failure, with no change in his chronic cough, phlegm production or shortness of breath. Patient responded to noninvasive ventilation. 01/29: Plan: I do not believe the patient has a COPD exacerbation and I will discontinue Solu-Medrol at this time. Patient is tachycardic and I will discontinue his DuoNebs and continue trelegy 100 inhaler. goal saturation 90-94%. Patient states he wears 2 L at home and his saturations are generally high 98%. Currently I decreased him to 1 L nasal cannula and his saturations remain 96%. I have talked to the nurse and will try to wean him off to room air if possible during the day. The patient tells me he takes Mucinex at home and I will start guaifenesin 1200 mg p.o. q.12 hours. I will order a CT scan of the chest to assess for any bacterial pneumonia. I will order an echocardiogram to assess LV function, RV function and valve function. 01/31/24: States he is breathing at his baseline. He denies cough, phlegm production or hemoptysis. When I enter the room he is on 1 L with saturations 98%. I decreased him to room air and after 4 minutes he desaturated to 89% and I returned him to [address] scan demonstrated severe panlobular emphysema all lung arellano 8 the sees greater than bases, right upper lobe and lower lobe airspace opacities most consistent with pneumonia. Small right pleural effusion. patient started on ceftriaxone and azithromycin. Plan: No wheezing on exam. Breathing at his baseline. Saturating well on 1 L nasal cannula. Continue trilogy 100 inhaler, guaifenesin 1200 mg p.o. b.i.d.. Goal saturation 90-94%. CT scan with possible pneumonia versus cancer and will Discontinue doxycycline, started 01/29, and initiate treatment with ceftriaxone and azithromycin, day 1. Discussed with Dr. Christensen, will follow with you. (2) Respiratory failure with hypoxia and hypercapnia: Code(s): J96.91 - Respiratory failure, unspecified with hypoxia; J96.92 - Respiratory failure, unspecified with hypercapnia Status: Acute Assessment and Plan: Patient with a history of severe COPD. Serum bicarbonate on 07/25/2023 was 38. ABG on admission on 6 L nasal cannula was 7.25/72/110. This has improved on BiPAP to 7.26/50 with patient has difficulty tolerating the BiPAP and says he can not wear it and he can not sleep with the machine on. The patient has chronic hypercarbic respiratory failure
[2024-01-31] MEDS: AZITHROMYCIN 500 MG/NS 250 ML 500 MG/250 ML BAG 250 MG IVPB (09:19)
--- NOTE | 2024-01-31 09:56 | PCRCNOTE ---
Faxed Trilogy order form to [facility]. Awaiting call back in regards to set-up trial day in hospital and estimated delivery/approval. Scanned paper order form into EMR.
[2024-01-31] MEDS: ALPRAZolam (*CRX) 0.5 MG TABLET PO (13:16)
--- NOTE | 2024-01-31 14:01 | PCRCNOTE ---
[facility] WILL BE IN TODAY TO SET UP PATIENT ON HOME TRILOGY UNIT FOR A TRIAL TONIGHT PRIOR TO D/C HOME.
[2024-02-01] VITALS (15 sets, daily range): BP systolic 133–177; BP diastolic 67–93; PULSE 56–114; RESP 18–22; TEMP 36.3–36.6; O2SAT 91–100
[2024-02-01 05:01] LABS: Alveolar/Arterial O2 Gradient 70.4 mmHg; Base Excess ABG 3.7 mEq/l (+/-2.0); Fractional Inspired Oxygen 32 %; Oxygen Content ABG 16.5 %vol (16.0-22.0); Oxygen Saturation ABG 97.7 % (95.0-100.0); Oxyhemoglobin 96.3 % THb (90.0-100.0); PCO2 ABG 47.2 mmHg (35.0-45.0); PO2 ABG 102.5 mmHg (80.0-100.0); Total Hemoglobin 12.1 g/dL (12.0-18.0); pH ABG 7.407 (7.350-7.450)
--- NOTE | 2024-02-01 05:22 | PCRCNOTE ---
patient was unable to tolerate use of Trilogy unit; patient stated that he was unable to breathe; oximetry study was completed with use of V60
[2024-02-01 06:26] LABS: Site Drawn RIGHT BRACHIAL
[2024-02-01 06:27] LABS: Device OTHER DEVICE
[2024-02-01] MEDS: FLUTICASONE/UMECLIDIN/VILANTER 100-62.5-25 MCG ELLIPTA 1 PUFF INHALATION (07:45)
[2024-02-01] MEDS: FLUTICASONE PROPIONATE 0.05% NA SPR 16 GM BTL (*BKC) 1 SPRAY NASAL ×2 (08:30→17:05)
[2024-02-01] MEDS: ASPIRIN 81 MG CHEWABLE TABLET PO (08:30)
[2024-02-01] MEDS: LOSARTAN POTASSIUM 100 MG TABLET PO (08:30)
[2024-02-01] MEDS: hydroCHLOROthiazide 12.5 MG CAPSULE PO (08:30)
[2024-02-01] MEDS: guaiFENesin 12 HR 600 MG TABCR 1200 MG PO ×2 (08:30→21:13)
[2024-02-01] MEDS: ALPRAZolam (*CRX) 0.5 MG TABLET PO ×2 (08:42→18:48)
[2024-02-01] MEDS: AZITHROMYCIN 500 MG/NS 250 ML 500 MG/250 ML BAG 250 MG IVPB (09:07)
--- NOTE | 2024-02-01 09:34 | PM.PNPUL ---
Progress Note: A&P Assessment and Plan (1) COPD (chronic obstructive pulmonary disease): Qualifiers: COPD type: unspecified COPD Qualified Code(s): J44.9 - Chronic obstructive pulmonary disease, unspecified Code(s): J44.9 - Chronic obstructive pulmonary disease, unspecified Status: Acute Assessment and Plan: Gold grade 4 group B COPD Patient previously followed in the Pulmonary Clinic in last seen on 09/24/2022. He has 100 pack year tobacco use, alpha 1 anti trypsin genotype MM, FEV1 14% predicted on 06/04/2019 with a ratio 40%. DLCO severely reduced. CT scan on 01/30/2024 with severe panlobular emphysema apices greater than bases. At that time he was on trelegy inhaler and his CAT score improved from a value of 20-16. He was on 2 to 2.5 L 24-7. He now has chronic hypercarbic respiratory failure. Patient tells me 2 weeks ago he was doing very well at his baseline. He was able to walk 75-100 steps and 1 year ago he said he could walk 250 steps. He stops now because of dyspnea on exertion. He is wearing 2 L nasal cannula 247 and he checks his home pulse oximeter is 96-98%. Granddaughters are in the room and they confirmed that the patient has not had any exacerbations or hospitalizations over the last year. Patient states that he intermittently smokes. He last smokes 6 cigarettes on 01/28/2024 but had smoked for 17 days prior to that. currently the patient presents with altered mental status, acute on chronic hypercarbic and hypoxemic respiratory failure, with no change in his chronic cough, phlegm production or shortness of breath. Patient responded to noninvasive ventilation. 01/29: Plan: I do not believe the patient has a COPD exacerbation and I will discontinue Solu-Medrol at this time. Patient is tachycardic and I will discontinue his DuoNebs and continue trelegy 100 inhaler. goal saturation 90-94%. Patient states he wears 2 L at home and his saturations are generally high 98%. Currently I decreased him to 1 L nasal cannula and his saturations remain 96%. I have talked to the nurse and will try to wean him off to room air if possible during the day. The patient tells me he takes Mucinex at home and I will start guaifenesin 1200 mg p.o. q.12 hours. I will order a CT scan of the chest to assess for any bacterial pneumonia. I will order an echocardiogram to assess LV function, RV function and valve function. 01/31/24: States he is breathing at his baseline. He denies cough, phlegm production or hemoptysis. When I enter the room he is on 1 L with saturations 98%. I decreased him to room air and after 4 minutes he desaturated to 89% and I returned him to [address] scan demonstrated severe panlobular emphysema all lung arellano 8 the sees greater than bases, right upper lobe and lower lobe airspace opacities most consistent with pneumonia. Small right pleural effusion. patient started on ceftriaxone and azithromycin. Plan: No wheezing on exam. Breathing at his baseline. Saturating well on 1 L nasal cannula. Continue trilogy 100 inhaler, guaifenesin 1200 mg p.o. b.i.d.. Goal saturation 90-94%. CT scan with possible pneumonia versus cancer and will Discontinue doxycycline, started 01/29, and initiate treatment with ceftriaxone and azithromycin, day 1. 02/01/24: Patient states he continues to improve. He feels normal at this time. He denies cough, phlegm production. Currently is on 1 L nasal cannula saturations 96%. I decreased him to room air and after 7 minutes he desaturated to 88% I placed him back on 1 L. Plan: Continue trilogy 100, guaifenesin 1200 p.o. b.i.d.. Currently on 1 L with goal saturation 90-94%. Continue ceftriaxone and azithromycin, day 2. The patient remains clinically stable overnight will discharge on 02/02/2024 on these pulmonary medications: Augmentin 875- 125 at 1 tablet p.o. b.i.d. times 7 days. azithromycin 250 mg p.o. q.day times 2 days Faby
--- NOTE | 2024-02-01 09:38 | PM.IMPN ---
Progress Note: A&P Assessment and Plan (1) Acute and chronic respiratory failure, unspecified whether with hypoxia or hypercapnia: Code(s): J96.20 - Acute and chronic respiratory failure, unspecified whether with hypoxia or hypercapnia Status: Acute (2) COPD exacerbation: Code(s): J44.1 - Chronic obstructive pulmonary disease with (acute) exacerbation Status: Acute (3) Atypical pneumonia: Code(s): J18.9 - Pneumonia, unspecified organism Status: Acute (4) Tobacco use: Code(s): Z72.0 - Tobacco use Status: Acute (5) HTN (hypertension): Code(s): I10 - Essential (primary) hypertension Status: Acute Plan acute metabolic encephalopathy possible due to CO2 retention and polypharmacy CT of head shows no acute intracranial issues Neuro check Treat underlying disease COPD exacerbation, acute resp failure with hypoxemia and hypercapnia history of COPD, tobacco dependence X-ray shows interstitial opacity Possible atypical pneumonia , versus acute bronchitis continue fluticasone 50 mcg b.i.d., Trelegy Ellipta, DuoNeb scheduled q.6 hours, albuterol nebulizer q.4 hour as needed start doxycycline 100 mg b.i.d. p.o. Consult business development executive for evaluation treatment appreciate pulmonology consultation, discontinue doxycycline and start ceftriaxone azithromycin, will provide patient AVAPS when patient is discharged 01/31; AVAPS arrived today and it will be set up today. pt needs to stay one more day to have AVAPS test new onset afib? appreciate cardiology consultation, consider MAT, possible resulting from COPD exacerbation, hypoxemia no need anticoagulation Follow echocardiogram ? 1. Left ventricular chamber dimension is normal. ? 2. Left ventricular systolic function is normal, estimated at 55-60%. ? 3. The left ventricular diastolic function is grade I diastolic dysfunction. ? 4. Right ventricular systolic function is normal. ? 5. There is mild aortic valve regurgitation. ? 6. There is mild tricuspid valve regurgitation. anxiety resume Xanax po prn Hypertension Continue losartan and hydrochlorothiazide daily p.o. patient may stay more than 2 midnights in the hospital Subjective Date/time seen: 02/01/24 09:38 Interval history: I saw exam patient today. Patient feels better no significant dyspnea at rest, patient has needed BiPAP during the night, patient has mild cough scant phlegm. Exam Narrative: GENERAL: Pleasant, in no acute distress. Well-nourished. - EYES: EOMI. Anicteric. - HENT: Moist mucous membranes. - LUNGS: decreased air entry bilateral, tachypnea no obvious respiratory distress - CARDIOVASCULAR: Regular rate and rhythm. No murmur. No JVD. - ABDOMEN: Soft, non-tender and non-distended. No palpable masses. - EXTREMITIES: No edema. Peripheral pulses 2+. Non-tender. - NEUROLOGIC: No focal neurological deficits. CN II-XII grossly intact. - PSYCHIATRIC: Awake, Alert and oriented x 3. Appropriate mood and affect. - SKIN: No rashes or lesions. Warm. - LYMPH: No cervical lymphadenopathy. Objective Data Vital Signs Vital Signs: Vital Signs - 24 hr 01/31/24 13:48 01/31/24 12:00 01/31/24 16:00 Temperature 97.2 F L Pulse Rate 66 82 96 Respiratory Rate 18 Blood Pressure 130/87 Pulse Oximetry 100 Oxygen Delivery Oxygen Flow Rate Fraction of Inspired Oxygen 01/31/24 20:36 01/31/24 20:00 02/01/24 00:00 Temperature 97.4 F L Pulse Rate 59 L 98 75 Respiratory Rate 18 Blood Pressure 143/85 H Pulse Oximetry 99 Oxygen Delivery Oxygen Flow Rate Fraction of Inspired Oxygen 01/31/24 22:30 02/01/24 02:39 02/01/24 02:44 Temperature Pulse Rate 72 70 Respiratory Rate 19 18 Blood Pressure Pulse Oximetry 97 97 97 Oxygen Delivery BiPAP BiPAP BiPAP Oxygen Flow Rate Fraction of Inspired Oxygen 32 02/01/24 04:00 02/01/24 05:19 02/01/24 07:47 Temperature 9
[2024-02-01 10:11] LABS: Anion Gap 4 mmol/L (4-12); Blood Urea Nitrogen 37 mg/dL (9-20); Calcium 9.2 mg/dL (8.4-10.2); Carbon Dioxide 33 mmol/L (22-30); Chloride 102 mmol/L (98-107); Estimated CRCL calculation 24 ml/min; Estimated Glomerular Filt Rate 57; Glucose 150 mg/dL (65-110); Potassium 3.7 mmol/L (3.4-5.0); Sodium 139 mmol/L (137-145)
[2024-02-01 10:39] LABS: Basophils Percent Auto 0.4 % (0.2-1.2); Eosinophils Absolute Auto 0.1 K/mm3 (0-0.3); Eosinophils Percent Auto 1.2 % (0-4.4); Hematocrit 34.2 % (42.0-52.0); Hemoglobin 10.6 g/dL (14.0-18.0); Immature Granulocyte Absolute 0.05 K/mm3 (0.00-0.031); Immature Granulocyte Percent A 0.7 % (0-0.5); Lymphocytes Absolute Auto 0.88 K/mm3 (0.9-3.2); Lymphocytes Percent Auto 12.7 % (18.3-44.2); Mean Corpuscular Hemoglobin 28.8 pg (26-34); Mean Corpuscular Volume 92.9 fl (80-100); Mean Platelet Volume 10.6 fl (7.4-10.4); Monocytes Absolute Auto 0.5 K/mm3 (0.1-0.6); Monocytes Percent Auto 6.6 % (2.6-8.5); Neutrophils Absolute Auto 5.4 K/mm3 (1.3-6.7); Neutrophils Percent Auto 78.4 % (45.5-73.1); Platelet Count Result 245 k/mm3 (150-375); Red Blood Count 3.68 M/mm3 (4.6-6.20); Red Cell Distribution Width 15.3 % (11.5-14.5); White Blood Count 6.9 K/mm3 (4.5-10.0)
--- NOTE | 2024-02-01 21:23 | PCRCNOTE ---
Pt states he cannot wear home unit, he states he cant exhale thru it, perhaps a 20min ramp or adjustment of EPAP settings will help
[2024-02-02] VITALS (13 sets, daily range): BP systolic 168–190; BP diastolic 81–87; PULSE 57–119; RESP 14–25; TEMP 36.3–36.8; O2SAT 95–100
--- NOTE | 2024-02-02 00:04 | PC.NURSE ---
Pt could not tolerate home AVAPs machine to wear throughout the night or complete apnea link while wearing. This RN called RT to room and they removed the AVAPs machine and placed pt on oxygen. Pt then called out to be placed on BIPAP machine, RT placed pt on BIPAP machine.
[2024-02-02 06:14] LABS: Basophils Percent Auto 0.5 % (0.2-1.2); Eosinophils Absolute Auto 0.2 K/mm3 (0-0.3); Eosinophils Percent Auto 2.7 % (0-4.4); Hematocrit 32.7 % (42.0-52.0); Hemoglobin 10.1 g/dL (14.0-18.0); Immature Granulocyte Absolute 0.01 K/mm3 (0.00-0.031); Immature Granulocyte Percent A 0.2 % (0-0.5); Lymphocytes Absolute Auto 1.23 K/mm3 (0.9-3.2); Mean Corpuscular HGB Conc 30.9 g/dl (32-36); Mean Corpuscular Hemoglobin 28.6 pg (26-34); Mean Corpuscular Volume 92.6 fl (80-100); Mean Platelet Volume 10.7 fl (7.4-10.4); Monocytes Absolute Auto 0.5 K/mm3 (0.1-0.6); Monocytes Percent Auto 9.5 % (2.6-8.5); Neutrophils Absolute Auto 3.6 K/mm3 (1.3-6.7); Neutrophils Percent Auto 65.1 % (45.5-73.1); Platelet Count Result 242 k/mm3 (150-375); Red Blood Count 3.53 M/mm3 (4.6-6.20); White Blood Count 5.6 K/mm3 (4.5-10.0)
[2024-02-02 06:58] LABS: Anion Gap 1 mmol/L (4-12); Blood Urea Nitrogen 35 mg/dL (9-20); Carbon Dioxide 36 mmol/L (22-30); Chloride 101 mmol/L (98-107); Estimated CRCL calculation 27 ml/min; Estimated Glomerular Filt Rate > 60; Glucose 84 mg/dL (65-110); Sodium 138 mmol/L (137-145)
[2024-02-02] MEDS: FLUTICASONE/UMECLIDIN/VILANTER 100-62.5-25 MCG ELLIPTA 1 PUFF INHALATION (07:01)
[2024-02-02 07:02] LABS: Potassium 3.8 mmol/L (3.4-5.0)
--- NOTE | 2024-02-02 08:05 | PM.IMPN ---
Progress Note: A&P Assessment and Plan (1) Acute and chronic respiratory failure, unspecified whether with hypoxia or hypercapnia: Code(s): J96.20 - Acute and chronic respiratory failure, unspecified whether with hypoxia or hypercapnia Status: Acute (2) COPD exacerbation: Code(s): J44.1 - Chronic obstructive pulmonary disease with (acute) exacerbation Status: Acute (3) Atypical pneumonia: Code(s): J18.9 - Pneumonia, unspecified organism Status: Acute (4) Tobacco use: Code(s): Z72.0 - Tobacco use Status: Acute (5) HTN (hypertension): Code(s): I10 - Essential (primary) hypertension Status: Acute Plan acute metabolic encephalopathy possible due to CO2 retention and polypharmacy CT of head shows no acute intracranial issues Neuro check Treat underlying disease COPD exacerbation, acute resp failure with hypoxemia and hypercapnia history of COPD, tobacco dependence X-ray shows interstitial opacity Possible atypical pneumonia , versus acute bronchitis continue fluticasone 50 mcg b.i.d., Trelegy Ellipta, DuoNeb scheduled q.6 hours, albuterol nebulizer q.4 hour as needed start doxycycline 100 mg b.i.d. p.o. Consult tricot knitter for evaluation treatment appreciate pulmonology consultation, discontinue doxycycline and start ceftriaxone azithromycin, will provide patient AVAPS when patient is discharged 01/31; AVAPS arrived today and it will be set up today. pt needs to stay one more day to have AVAPS test 02/01: AVAPS trial today per tricot knitter new onset afib? appreciate cardiology consultation, consider MAT, possible resulting from COPD exacerbation, hypoxemia no need anticoagulation Follow echocardiogram ? 1. Left ventricular chamber dimension is normal. ? 2. Left ventricular systolic function is normal, estimated at 55-60%. ? 3. The left ventricular diastolic function is grade I diastolic dysfunction. ? 4. Right ventricular systolic function is normal. ? 5. There is mild aortic valve regurgitation. ? 6. There is mild tricuspid valve regurgitation. anxiety resume Xanax po prn Hypertension Continue losartan and hydrochlorothiazide daily p.o. constipation patient states that his last bowel movement was Tuesday, increase Senokot S to 2 tabs b.i.d. p.o. Start Fleet enema x1 MiraLax 1 pack p.r.n. patient may stay more than 2 midnights in the hospital Subjective Date/time seen: 02/02/24 08:05 Interval history: I saw exam patient today, patient denies dyspnea at rest, has mild cough, without phlegm, patient denies chest pain, nausea vomiting diarrhea. Patient has constipation, Exam Narrative: GENERAL: Pleasant, in no acute distress. Well-nourished. - EYES: EOMI. Anicteric. - HENT: Moist mucous membranes. - LUNGS: decreased air entry bilateral, tachypnea no obvious respiratory distress - CARDIOVASCULAR: Regular rate and rhythm. No murmur. No JVD. - ABDOMEN: Soft, non-tender and non-distended. No palpable masses. - EXTREMITIES: No edema. Peripheral pulses 2+. Non-tender. - NEUROLOGIC: No focal neurological deficits. CN II-XII grossly intact. - PSYCHIATRIC: Awake, Alert and oriented x 3. Appropriate mood and affect. - SKIN: No rashes or lesions. Warm. - LYMPH: No cervical lymphadenopathy. Objective Data Vital Signs Vital Signs: Vital Signs - 24 hr 02/01/24 08:30 02/01/24 08:30 02/01/24 12:00 Temperature Pulse Rate 89 114 H Respiratory Rate Blood Pressure 177/81 H Pulse Oximetry 95 95 Oxygen Delivery Nasal Cannula Oxygen Flow Rate 1 02/01/24 14:00 02/01/24 16:00 02/01/24 20:15 Temperature 97.4 F L Pulse Rate 73 112 H Respiratory Rate 20 Blood Pressure 165/73 H Pulse Oximetry 100 97 Oxygen Delivery Nasal Cannula Oxygen Flow Rate 2 02/01/24 21:34 02/01/24 23:25 02/01/24 20:00 Temperature 97.9 F Pulse Rate 56 L 77 90 Respiratory Rate 20 22 H Blood
--- NOTE | 2024-02-02 08:05 | PM.DS ---
DS: Admitting Diagnosis Discharge Date 02/03/24 Admitting Diagnosis (1) Acute and chronic respiratory failure, unspecified whether with hypoxia or hypercapnia: ?Code(s): J96.20 - Acute and chronic respiratory failure, unspecified whether with hypoxia or hypercapnia ?Status:?Acute (2) COPD exacerbation: ?Code(s): J44.1 - Chronic obstructive pulmonary disease with (acute) exacerbation ?Status:?Acute (3) Atypical pneumonia: ?Code(s): J18.9 - Pneumonia, unspecified organism ?Status:?Acute (4) Tobacco use: ?Code(s): Z72.0 - Tobacco use ?Status:?Acute (5) HTN (hypertension): ?Code(s): I10 - Essential (primary) hypertension ?Status:?Acute DS: Discharge Diagnosis Discharge Diagnosis (1) Acute and chronic respiratory failure, unspecified whether with hypoxia or hypercapnia: Code(s): J96.20 - Acute and chronic respiratory failure, unspecified whether with hypoxia or hypercapnia Status: Acute (2) COPD exacerbation: Code(s): J44.1 - Chronic obstructive pulmonary disease with (acute) exacerbation Status: Acute (3) Atypical pneumonia: Code(s): J18.9 - Pneumonia, unspecified organism Status: Acute (4) Tobacco use: Code(s): Z72.0 - Tobacco use Status: Acute (5) HTN (hypertension): Code(s): I10 - Essential (primary) hypertension Status: Acute DS: Summary Hospital Course Hospital Course: Patient 88-year-old gentleman? with history of COPD, tobacco dependent, hypertension, anxiety,who presents emergency department chief complaint of altered mental status.?? patient family notice was less responsive yesterday. patient has history of COPD, smokes cigarettes.? patient states he started to smoke cigarettes in past more days, and then patient started feeling tired, and also developed,dyspnea. ? since yesterday, patient? has been feeling drowsy. ? patient has some cough, patient as dry cough.? upon arrival in the ED, patient found have hypothermia, 35.6, tachycardia tachypnea, blood pressure stable, patient was found have hypoxemia, lab showed hemoglobin 10.7, elevated BUN creatinine 26/1.4, ABG showed decompensated respiratory acidosis, pH 7.25, pCO2 72.3.? X-ray shows interstitial opacity. ? patient was placed on BiPAP the following med issues have been addressed during hospitalization acute metabolic encephalopathy possible due to CO2 retention and polypharmacy CT of head shows no acute intracranial issues Neuro check Treat underlying disease COPD exacerbation, acute resp failure with hypoxemia and hypercapnia history of COPD, tobacco dependence X-ray shows interstitial opacity Possible atypical pneumonia , versus acute bronchitis continue fluticasone 50 mcg b.i.d., Trelegy Ellipta, DuoNeb scheduled q.6 hours, albuterol nebulizer q.4 hour as needed start doxycycline 100 mg b.i.d. p.o. Consult plastics process hand for evaluation treatment appreciate pulmonology consultation, discontinue doxycycline and start ceftriaxone azithromycin, will provide patient AVAPS when patient is discharged 01/31; AVAPS arrived today and it will be set up today. pt needs to stay one more day to have AVAPS test 02/01: AVAPS trial today per plastics process hand 02/02 patient tolerated AVAPS today, patient will discharge home per plastics process hand recommendation new onset afib? appreciate cardiology consultation, consider MAT, possible resulting from COPD exacerbation, hypoxemia no need anticoagulation Follow echocardiogram ? 1. Left ventricular chamber dimension is normal. ? 2. Left ventricular systolic function is normal, estimated at 55-60%. ? 3. The left ventricular diastolic function is grade I diastolic dysfunction. ? 4. Right ventricular systolic function is normal. ? 5. There is mild aortic valve regurgitation. ? 6. There is mild tricuspid valve regurgitation. anxiety resume Xanax po prn anxiety is well controlled Hyperten
[2024-02-02] MEDS: hydroCHLOROthiazide 12.5 MG CAPSULE PO (08:22)
[2024-02-02] MEDS: ASPIRIN 81 MG CHEWABLE TABLET PO (08:22)
[2024-02-02] MEDS: guaiFENesin 12 HR 600 MG TABCR 1200 MG PO ×2 (08:23→20:12)
[2024-02-02] MEDS: SENNA/DOCUSATE SODIUM TABLET 1 TAB PO (08:23)
[2024-02-02] MEDS: FLUTICASONE PROPIONATE 0.05% NA SPR 16 GM BTL (*BKC) 1 SPRAY NASAL ×2 (08:24→16:18)
[2024-02-02] MEDS: LOSARTAN POTASSIUM 100 MG TABLET PO (08:29)
[2024-02-02] MEDS: AZITHROMYCIN 500 MG/NS 250 ML 500 MG/250 ML BAG 250 MG IVPB (09:52)
[2024-02-02] MEDS: ALPRAZolam (*CRX) 0.5 MG TABLET PO ×2 (09:58→18:32)
--- NOTE | 2024-02-02 10:21 | PM.PNPUL ---
Progress Note: A&P Assessment and Plan (1) COPD (chronic obstructive pulmonary disease): Qualifiers: COPD type: unspecified COPD Qualified Code(s): J44.9 - Chronic obstructive pulmonary disease, unspecified Code(s): J44.9 - Chronic obstructive pulmonary disease, unspecified Status: Acute Assessment and Plan: Gold grade 4 group B COPD Patient previously followed in the Pulmonary Clinic in last seen on 09/24/2022. He has 100 pack year tobacco use, alpha 1 anti trypsin genotype MM, FEV1 14% predicted on 06/04/2019 with a ratio 40%. DLCO severely reduced. CT scan on 01/30/2024 with severe panlobular emphysema apices greater than bases. At that time he was on trelegy inhaler and his CAT score improved from a value of 20-16. He was on 2 to 2.5 L 24-7. He now has chronic hypercarbic respiratory failure. Patient tells me 2 weeks ago he was doing very well at his baseline. He was able to walk 75-100 steps and 1 year ago he said he could walk 250 steps. He stops now because of dyspnea on exertion. He is wearing 2 L nasal cannula 247 and he checks his home pulse oximeter is 96-98%. Granddaughters are in the room and they confirmed that the patient has not had any exacerbations or hospitalizations over the last year. Patient states that he intermittently smokes. He last smokes 6 cigarettes on 01/28/2024 but had smoked for 17 days prior to that. currently the patient presents with altered mental status, acute on chronic hypercarbic and hypoxemic respiratory failure, with no change in his chronic cough, phlegm production or shortness of breath. Patient responded to noninvasive ventilation. 01/29: Plan: I do not believe the patient has a COPD exacerbation and I will discontinue Solu-Medrol at this time. Patient is tachycardic and I will discontinue his DuoNebs and continue trelegy 100 inhaler. goal saturation 90-94%. Patient states he wears 2 L at home and his saturations are generally high 98%. Currently I decreased him to 1 L nasal cannula and his saturations remain 96%. I have talked to the nurse and will try to wean him off to room air if possible during the day. The patient tells me he takes Mucinex at home and I will start guaifenesin 1200 mg p.o. q.12 hours. I will order a CT scan of the chest to assess for any bacterial pneumonia. I will order an echocardiogram to assess LV function, RV function and valve function. 01/31/24: States he is breathing at his baseline. He denies cough, phlegm production or hemoptysis. When I enter the room he is on 1 L with saturations 98%. I decreased him to room air and after 4 minutes he desaturated to 89% and I returned him to [address] scan demonstrated severe panlobular emphysema all lung arellano 8 the sees greater than bases, right upper lobe and lower lobe airspace opacities most consistent with pneumonia. Small right pleural effusion. patient started on ceftriaxone and azithromycin. Plan: No wheezing on exam. Breathing at his baseline. Saturating well on 1 L nasal cannula. Continue trilogy 100 inhaler, guaifenesin 1200 mg p.o. b.i.d.. Goal saturation 90-94%. CT scan with possible pneumonia versus cancer and will Discontinue doxycycline, started 01/29, and initiate treatment with ceftriaxone and azithromycin, day 1. 02/01/24: Patient states he continues to improve. He feels normal at this time. He denies cough, phlegm production. Currently is on 1 L nasal cannula saturations 96%. I decreased him to room air and after 7 minutes he desaturated to 88% I placed him back on 1 L. Plan: Continue trilogy 100, guaifenesin 1200 p.o. b.i.d.. Currently on 1 L with goal saturation 90-94%. Continue ceftriaxone and azithromycin, day 2. 02/02/24: Patient is currently states he is breathing back at his baseline. He denies cough, phlegm or hemoptysis. His saturations on 1 L 99%. His white blood cell count is 5.6, his creatinine is 1.10. Plan: Continue tr
[2024-02-03] VITALS (15 sets, daily range): BP systolic 138–160; BP diastolic 68–77; PULSE 51–126; RESP 16; TEMP 36.2–36.3; O2SAT 86–99
[2024-02-03 04:42] LABS: Alveolar/Arterial O2 Gradient 95.8 mmHg; Base Excess ABG 10.7 mEq/l (+/-2.0); Fractional Inspired Oxygen 32 %; HCO3 ABG 35.8 mEq/l (22.0-26.0); Oxygen Content ABG 15.9 %vol (16.0-22.0); Oxygen Saturation ABG 95.6 % (95.0-100.0); PCO2 ABG 49.5 mmHg (35.0-45.0); PO2 ABG 74.4 mmHg (80.0-100.0); PO2 FiO2 Ratio Arterial Blood 2.33 %; pH ABG 7.477 (7.350-7.450)
[2024-02-03 04:43] LABS: Site Drawn RIGHT BRACHIAL
[2024-02-03 04:44] LABS: Modified Allen's Test Unable to perform
[2024-02-03 04:47] LABS: Device OTHER DEVICE
--- NOTE | 2024-02-03 06:42 | PCRCNOTE ---
Overnight oximetry study completed last night with patients home trelegy, 3L bleed in. Pt tolerated his new machine settings all night. ABG collected at 0430. Nurse aware
[2024-02-03] MEDS: FLUTICASONE/UMECLIDIN/VILANTER 100-62.5-25 MCG ELLIPTA 1 PUFF INHALATION (07:53)
--- NOTE | 2024-02-03 08:16 | PM.IMPN ---
Progress Note: A&P Assessment and Plan (1) Acute and chronic respiratory failure, unspecified whether with hypoxia or hypercapnia: Code(s): J96.20 - Acute and chronic respiratory failure, unspecified whether with hypoxia or hypercapnia Status: Acute (2) COPD exacerbation: Code(s): J44.1 - Chronic obstructive pulmonary disease with (acute) exacerbation Status: Acute (3) Atypical pneumonia: Code(s): J18.9 - Pneumonia, unspecified organism Status: Acute (4) Tobacco use: Code(s): Z72.0 - Tobacco use Status: Acute (5) HTN (hypertension): Code(s): I10 - Essential (primary) hypertension Status: Acute Plan acute metabolic encephalopathy possible due to CO2 retention and polypharmacy CT of head shows no acute intracranial issues Neuro check Treat underlying disease COPD exacerbation, acute resp failure with hypoxemia and hypercapnia history of COPD, tobacco dependence X-ray shows interstitial opacity Possible atypical pneumonia , versus acute bronchitis continue fluticasone 50 mcg b.i.d., Trelegy Ellipta, DuoNeb scheduled q.6 hours, albuterol nebulizer q.4 hour as needed start doxycycline 100 mg b.i.d. p.o. Consult casting director for evaluation treatment appreciate pulmonology consultation, discontinue doxycycline and start ceftriaxone azithromycin, will provide patient AVAPS when patient is discharged 01/31; AVAPS arrived today and it will be set up today. pt needs to stay one more day to have AVAPS test 02/01: AVAPS trial today per casting director 02/02 patient tolerated AVAPS today, patient will discharge home per casting director recommendation new onset afib? appreciate cardiology consultation, consider MAT, possible resulting from COPD exacerbation, hypoxemia no need anticoagulation Follow echocardiogram ? 1. Left ventricular chamber dimension is normal. ? 2. Left ventricular systolic function is normal, estimated at 55-60%. ? 3. The left ventricular diastolic function is grade I diastolic dysfunction. ? 4. Right ventricular systolic function is normal. ? 5. There is mild aortic valve regurgitation. ? 6. There is mild tricuspid valve regurgitation. anxiety resume Xanax po prn anxiety is well controlled Hypertension Continue losartan and hydrochlorothiazide daily p.o. constipation patient states that his last bowel movement was Tuesday, increase Senokot S to 2 tabs b.i.d. p.o. Start Fleet enema x1 MiraLax 1 pack p.r.n. patient has home movement today changes Senokot 2 tablets b.i.d. p.r.n. Subjective Date/time seen: 02/03/24 08:16 Interval history: I saw exam patient today, patient feels better, tolerating AVAPS, he denies dyspnea at rest, has mild cough, without phlegm, patient denies chest pain, nausea vomiting diarrhea. Patient has constipation, Exam Narrative: GENERAL: Pleasant, in no acute distress. Well-nourished. - EYES: EOMI. Anicteric. - HENT: Moist mucous membranes. - LUNGS: decreased air entry bilateral, tachypnea no obvious respiratory distress - CARDIOVASCULAR: Regular rate and rhythm. No murmur. No JVD. - ABDOMEN: Soft, non-tender and non-distended. No palpable masses. - EXTREMITIES: No edema. Peripheral pulses 2+. Non-tender. - NEUROLOGIC: No focal neurological deficits. CN II-XII grossly intact. - PSYCHIATRIC: Awake, Alert and oriented x 3. Appropriate mood and affect. - SKIN: No rashes or lesions. Warm. - LYMPH: No cervical lymphadenopathy. Objective Data Vital Signs Vital Signs: Vital Signs - 24 hr 02/02/24 09:18 02/02/24 12:00 02/02/24 14:00 Temperature 97.3 F L Pulse Rate 112 H 74 Respiratory Rate 16 Blood Pressure 190/81 H Pulse Oximetry 98 Oxygen Delivery Nasal Cannula Oxygen Flow Rate 1 02/02/24 16:00 02/02/24 21:11 02/02/24 20:30 Temperature 98.1 F Pulse Rate 102 H 94 Respiratory Rate 14 Blood Pressure 168/87 H Pulse Oximetry 97 96 Oxyge
--- NOTE | 2024-02-03 09:12 | P.PNPL_ITS ---
Progress Note: A&P Assessment and Plan (1) COPD (chronic obstructive pulmonary disease): Qualifiers: COPD type: unspecified COPD Qualified Code(s): J44.9 - Chronic obstructive pulmonary disease, unspecified Code(s): J44.9 - Chronic obstructive pulmonary disease, unspecified Status: Acute Assessment and Plan: Gold grade 4 group B COPD Patient previously followed in the Pulmonary Clinic in last seen on 09/24/2022. He has 100 pack year tobacco use, alpha 1 anti trypsin genotype MM, FEV1 14% predicted on 06/04/2019 with a ratio 40%. DLCO severely reduced. CT scan on 01/30/2024 with severe panlobular emphysema apices greater than bases. At that time he was on trelegy inhaler and his CAT score improved from a value of 20-16. He was on 2 to 2.5 L 24-7. He now has chronic hypercarbic respiratory failure. Patient tells me 2 weeks ago he was doing very well at his baseline. He was able to walk 75-100 steps and 1 year ago he said he could walk 250 steps. He stops now because of dyspnea on exertion. He is wearing 2 L nasal cannula 247 and he checks his home pulse oximeter is 96-98%. Granddaughters are in the room and they confirmed that the patient has not had any exacerbations or hospitalizations over the last year. Patient states that he intermittently smokes. He last smokes 6 cigarettes on 01/28/2024 but had smoked for 17 days prior to that. currently the patient presents with altered mental status, acute on chronic hypercarbic and hypoxemic respiratory failure, with no change in his chronic cough, phlegm production or shortness of breath. Patient responded to noninvasive ventilation. 01/29: Plan: I do not believe the patient has a COPD exacerbation and I will discontinue Solu-Medrol at this time. Patient is tachycardic and I will discontinue his DuoNebs and continue trelegy 100 inhaler. goal saturation 90- 94%. Patient states he wears 2 L at home and his saturations are generally high 98%. Currently I decreased him to 1 L nasal cannula and his saturations remain 96%. I have talked to the nurse and will try to wean him off to room air if po ssible during the day. The patient tells me he takes Mucinex at home and I will start guaifenesin 1200 mg p.o. q.12 hours. I will order a CT scan of the chest to assess for any bacterial pneumonia. I will order an echocardiogram to assess LV function, RV function and valve function. 01/31/24: States he is breathing at his baseline. He denies cough, phlegm production or hemoptysis. When I enter the room he is on 1 L with saturations 98%. I decreased him to room air and after 4 minutes he desaturated to 89% and I returned him to [address] scan demonstrated severe panlobular emphysema all lung arellano 8 the sees greater than bases, right upper lobe and lower lobe airspace opacities most consistent with pneumonia. Small right pleural effusion. patient started on ceftriaxone and azithromycin. Plan: No wheezing on exam. Breathing at his baseline. Saturating well on 1 L nasal cannula. Continue trilogy 100 inhaler, guaifenesin 1200 mg p.o. b.i.d.. Goal saturation 90-94%. CT scan with possible pneumonia versus cancer and will Discontinue doxycycline, started 01/29, and initiate treatment with ceftriaxone and azithromycin, day 1. 02/01/24: Patient states he continues to improve. He feels normal at this time. He denies cough, phlegm production. Currently is on 1 L nasal cannula saturations 96%. I decreased him to room air and after 7 minutes he desaturated to 88% I placed him back on 1 L. Plan: Continue trilogy 100, guaifenesin 1200 p.o. b.i.d.. Currently on 1 L with goal saturation 90-94%. Continue ceftriaxone and azithromycin, day
[2024-02-03] MEDS: guaiFENesin 12 HR 600 MG TABCR 1200 MG PO (09:58)
[2024-02-03] MEDS: ALPRAZolam (*CRX) 0.5 MG TABLET PO (09:58)
[2024-02-03] MEDS: hydroCHLOROthiazide 12.5 MG CAPSULE PO (09:59)
[2024-02-03] MEDS: ASPIRIN 81 MG CHEWABLE TABLET PO (09:59)
[2024-02-03] MEDS: LOSARTAN POTASSIUM 100 MG TABLET PO (09:59)
[2024-02-03] MEDS: FLUTICASONE PROPIONATE 0.05% NA SPR 16 GM BTL (*BKC) 1 SPRAY NASAL (10:00)
--- NOTE | 2024-02-03 10:04 | HOMEO2EVAL ---
Evaluation was performed at [facility] Home Oxygen Evaluation RC: Home Oxygen (O2) Evaluation Start: 02/03/24 08:25 Freq: ONCE Status: Active Protocol: RPE Activity Type Activity Date Activity User E-sign Co-sign Detail Recorded Client Recorded Date Recorded By Document 02/03/24 09:45 CRISELDA [email or web address] 02/03/24 10:04 CRISELDA Document 02/03/24 09:46 CRISELDA [email or web address] 02/03/24 10:04 CRISELDA Document 02/03/24 09:50 CRISELDA [email or web address] 02/03/24 10:04 CRISELDA Document 02/03/24 09:51 CRISELDA [email or web address] 02/03/24 10:04 CRISELDA Document 02/03/24 09:52 CRISELDA [email or web address] 02/03/24 10:04 CRISELDA Document 02/03/24 10:00 CRISELDA [email or web address] 02/03/24 10:04 CRISELDA 02/03/24 02/03/24 02/03/24 09:45 09:46 09:50 Home O2 Evaluation [Oxygen] -Test Phase Resting Resting Exercise -Oxygen Delivery Room Air Nasal Cannula Nasal Cannula -Oxygen Flow Rate (L/min) 1 1 [Pulse Oximetry] -Pulse Oximetry (90-100 %) 87 L 95 86 L [Pulse Rate] -Pulse Rate (60-100 beats/min) 97 [Comments] -Home Oxygen Evaluation Comments [Charges] -Evaluation Charges O2 Evaluation by Pulmonary 02/03/24 02/03/24 02/03/24 09:51 09:52 10:00 Home O2 Evaluation [Oxygen] -Test Phase Exercise Exercise Resting -Oxygen Delivery Nasal Cannula Nasal Cannula Nasal Cannula -Oxygen Flow Rate (L/min) 2 3 1 [Pulse Oximetry] -Pulse Oximetry (90-100 %) 88 L 92 96 [Pulse Rate] -Pulse Rate (60-100 beats/min) 126 H 100 [Comments] -Home Oxygen Evaluation Comments Requires 1 L at rest and 3-4 L with activity, 3 L with home Trilogy unit. [Charges] -Evaluation Charges
--- NOTE | 2024-02-03 10:04 | PCRCNOTE ---
Home O2 eval done, 1 L resting, 3-4 L with activity, 3 L with home Trilogy unit. Pt has [employer] [facility]. Pt has all required home respiratory equipment.
[2024-02-03] MEDS: AZITHROMYCIN 500 MG/NS 250 ML 500 MG/250 ML BAG 250 MG IVPB (10:36)
--- NOTE | 2024-02-03 11:53 | PCNFU ---
Nutrition Follow-Up Complete: Unintentional weight loss related to increased energy needs as evidenced by noted weight loss in EMR of -6% x 1 year Goal:PO intake 75% or greater for meals Pt not meeting goal Pt current nutrition is heart healthy, Ensure Enlive BID. Nutrition recommendation: continue with current plan of care, encourage intake Last recorded weight is 42.8 kg. Bowel Motility: +BM 02/01 Labs Reviewed: Hgb:10.1, HCT:32.7, BUN:35 Meds Noted: HCTZ, solumedrol Skin: WNL Additional Notes: Pt continues on a heart healthy diet, intake 10-50% and varied but pt does drink the Ensure shakes. Encourage good po intake of meals and shakes, Pt is to discharge today. Monitor intake, wt, labs. Follow up in 5 days.
--- NOTE | 2024-02-03 16:22 | PC.NURSE ---
On 02/03/24, the AUTOMOTIVE TIRE WORKER, Sonia, provided care and completed [facility] documentation on this patient. I have reviewed the AUTOMOTIVE TIRE WORKER's documentation and agree with the findings.
== END 2024-02-03 15:00 | disposition home health service (06) | DRG 189 ==
LOC: ANHED 22:23 → ANHIMU 01-30 00:20 → ANH3MEDSUR 01-30 19:35
PROVIDERS: Internal Medicine Pulmonary Disease; Admitting Provider Internal Medicine; Emergency Provider Emergency Medicine; PCP Family Medicine; Visit Provider Hospitalist
DX: J96.21 Acute and chronic respiratory failure with hypoxia (principal); G93.41 Metabolic encephalopathy; J18.9 Pneumonia, unspecified organism; J44.1 Chronic obstructive pulmonary disease with (acute) exacerbation; J44.0 Chronic obstructive pulmonary disease with (acute) lower respiratory infection; J96.22 Acute and chronic respiratory failure with hypercapnia; J20.9 Acute bronchitis, unspecified; I10 Essential (primary) hypertension; F41.9 Anxiety disorder, unspecified; Z20.822 Contact with and (suspected) exposure to COVID-19; K59.00 Constipation, unspecified; Z66 Do not resuscitate; F17.210 Nicotine dependence, cigarettes, uncomplicated
CPT/HCPCS: 36415; 36600; 70450; 71045; 71250; 80048; 80053; 81001; 82375; 82805; 83050; 83605; 83735; 83880; 84145; 84484; 85025; 85610; 85730; 87040; 87637; 93005; 93306; 94002; 94003; 94618; 94640; 94762; 96361; 96374; 96375; 97161; 99291; A9270; G0378; J0456; J0696; J2919; J7030

== ENCOUNTER 2024-04-30 10:01 | Outpatient (CLI) | payer MEDICARE, SELFPAY ==
--- NOTE | ~2024-04-30 | CT_ITS ---
EXAMINATION: CT diagnostic chest wo con DATE: 04/30/2024 10:16 INDICATION: Solitary pulmonary nodule TECHNIQUE: Computed tomography (CT) of the chest was performed without intravenous contrast. The dose -length product was 66.12 mGy-cm. Automated exposure control and iterative reconstruction technique w ere employed. COMPARISON: CT dated 01/30/2024 FINDINGS: Severe emphysema. There is atherosclerosis of the aorta and coronary arteries. 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 No significant pleural or pericardial effusion. There is a persistent right low er lobe mass measuring 3.1 x 2.2 cm with resolution of adjacent effusion. There is a linear density i n the right lower lobe, image 79, likely postinfectious/inflammatory residua. No pneumothorax. No end obronchial lesions. IMPRESSION: 1. 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 Further evaluation w ith pet/CT scan or percutaneous biopsy is recommended. Reviewed, dictated and finalized at location B. IMPRESSION: 1. 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 Further evaluation with pet/CT scan or percutaneous biopsy is recommended.
== END 2024-04-30 10:02 | disposition home or self-care (01) ==
PROVIDERS: PCP Family Medicine; Visit Provider Internal Medicine Pulmonary Disease
DX: R91.1 Solitary pulmonary nodule (principal)
CPT/HCPCS: 71250

== ENCOUNTER 2025-02-20 12:17 | Outpatient (CLI) | payer MEDICARE, SELFPAY ==
--- NOTE | ~2025-02-20 | CT_ITS ---
CT Scan of the Chest without Contrast: Clinical Indication: Abnormal finding of lung field Technique: Contiguous sections were acquired throughout the chest without intravenous contrast. Dose reduction technique was used on this scan by utilizing automated exposure control and iterative recon struction technique. The dose-length product (DLP) was 66.12 mGy-cm. COMPARISON: 08/13/2024 Findings: There is no evidence of any significant mediastinal, hilar or axillary lymphadenopathy. There are ext ensive atherosclerotic calcifications of the aorta and coronary arteries. There is no evidence of pleural or pericardial effusion. 3.1 x 2.2 x 3.8 cm right basilar pulmonary nodule is increased in size from prior exam (coronal image 75). Advanced emphysema present. Images through the upper abdomen reveal no abnormalities. Impression: 3.1 x 2.2 x 3.8 cm right basilar pulmonary nodule is increased from prior exam. Malignancy suspected until proven otherwise. Percutaneous tissue sampling recommended to establish a histologic diagnosis. Severe emphysema. Reviewed, dictated and finalized at location . Impression: 3.1 x 2.2 x 3.8 cm right basilar pulmonary nodule is increased from prior exam. Malignancy suspected until proven otherwise. Percutaneous tissue sampling malena mmended to establish a histologic diagnosis. Severe emphysema.
--- OUTSIDE RECORDS SUMMARY | 2025-02-20 12:25 | XMS_ITS | Clinical Summary ---
Author Organization [facility] Address [facility] [place] [address] Care Team Providers Care Concrete Bucket Loader Name Role Phone Unavailable Primary Care Provider Unavailabl e Social History Tobacco Use Types Packs/Day Years Used Date Smoking Tobacco: Never Assessed Sex and Gender Information Value Date Recorded Sex Assigned at Not on file Legal Sex Male 7:14 PM CDT Gender Identity Not on file Sexual Orientation Not on file Last Filed Vital Signs Vital Sign Reading Time Taken Comments Blood Pressure 140/68 05/22/2014 10:35 AM CDT Pulse - - Temperature - - Respiratory Rate - - Oxygen Saturation - - Inhaled Oxygen Concentration - - Weight 49.9 kg (110 lb) 05/22/2014 10:35 AM CDT Height 170.2 cm (5' 7 ) 05/22/2014 10:35 AM CDT Body Mass Index 17.23 05/22/2014 10:35 AM CDT Plan of Treatment Health Maintenance Due Date Last Done Comments DTaP, Tdap and Td Vaccines ( 1 - Tdap) 1956 Zoster Vaccines (1 of 2) 1987 Pneumococcal Vaccine: 50+ Ye ars (2 of 2 - PCV) 10/10/2009 10/10/2008 RSV Immunization or 60+ Years (1 - 1-dose 75+ series) 2012 COVID-19 Vaccine (2023-2 5 season) 2024 Meningococcal B Vaccine Aged Out No l onger eligible based on patient's age to complete this topic Meningococcal Vaccine Aged Out No halley nereyda eligible based on patient's age to complete this topic RSV Immunizations Under 20 Months Aged Out No longer eligible based on patient's age to complete this topic
--- OUTSIDE RECORDS SUMMARY | 2025-02-20 12:25 | XMS_ITS | Encounter Summary ---
Author Organization [facility] Address [address] [place] [address] Phone Care Team Providers Care Human Resources Talent Manager Name Role Phone Tucker Del Rosario DO Primary Care Provider [phone] Reason for Visit * Reason Comments Medication Refill Encounter Details Date Type Department Care Team (Late st Contact Info) Description 12/03/2020 Refill [facility] PULMONOLOGY #[address] [place] [phone] Donovan De Santiago MD [address] [place] [phone] Medication Refill Social History Tobacco Use Types Packs/Day Years Used Date Smoking Tobacco: Former Smokeless Tobacco: Never Alcohol Use Standard Drinks/Week Comments No 0 (1 standard drink = 0.6 oz pur e alcohol) former daily drinker Sex and Gender Information Value Date Recorded Sex Assigned at Not on file 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
--- OUTSIDE RECORDS SUMMARY | 2025-02-20 12:25 | XMS_ITS | Encounter Summary ---
Author Organization [facility] Address [address] [place] [address] Phone Care Team Providers Care Brass Burnisher Name Role Phone Tucker Del Rosario DO Primary Care Provider [phone] Reason for Visit * Reason Comments Medication Refill Encounter Details Date Type Department Care Team (Late st Contact Info) Description 04/24/2020 Refill [facility]IAN GROUP PULMONOLOGY #1 [place] [phone] Donovan De Santiago MD [address] [place] [phone] Medication Refill Social History Tobacco Use Types Packs/Day Years Used Date Smoking Tobacco: Former Smokeless Tobacco: Never Alcohol Use Standard Drinks/Week Comments No 0 (1 standard drink = 0.6 oz pur e alcohol) former daily drinker Sex and Gender Information Value Date Recorded Sex Assigned at Not on file Legal 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
--- OUTSIDE RECORDS SUMMARY | 2025-02-20 12:25 | XMS_ITS | Encounter Summary ---
Author Organization [facility] Address [address] [place] [address] Phone Care Team Providers Care Grain Elevator Man Name Role Phone Miguel ÁngelTucker Marta ROQUE Primary Care Provider [phone] Reason for Visit * Reason Comments Medication Refill Encounter Details Date Type Department Care Team (Late st Contact Info) Description 04/27/2021 Refill [facility] - Pulmonology & Sleep Medicine [facility] [address] [place] [phone] Donovan De Santiago MD [address] [place] [phone] Medication Refill Social History Tobacco Use Types Packs/Day Years Used Date Smoking Tobacco: Former Smokeless Tobacco: Never Alcohol Use Standard Drinks/Week Comments No 0 (1 standard drink = 0.6 oz pur e alcohol) former daily drinker Sex and Gender Information Value Date Recorded Sex Assigned at Not on file 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 Gender Identity Not on file Sexual Orientation Not on file documented as of this encounter Miscellaneous Notes * Telephone Encounter - Shira Mckeon RN - 04/29/2021 8:26 AM CDT Requested Prescriptions Pending Prescriptions Disp Refills Flovent HFA 110 MCG/ACT Aerosol [Pharmacy Med Name: Flovent HFA 110 MCG/ACT Inhalation Aerosol] 12 g 0 Sig: Inhale 2 puffs by mouth twice daily Inhaled Steroids Protocol Failed - 04/27/2021 10:30 AM Failed - Active short-acting beta agonist prescription Passed - Visit with relevant provider in past 12 months or upcoming 90 days Recent Visits Date Type Provider Dept 01/20/21 Office Visit Donovan De Santiago MD [facility] Pul & Sleep [facility] [address] Showing recent visits within past 365 days and meeting all other requirements Future Appointments No visits were found meeting these conditions. Showing future appointments within next 90 days and meeting all other requirements Anoro Ellipta 62.5-25 MCG/INH AEROSOL POWDER, BREATH ACTIVATED [Pharmacy Med Name: Anoro Ellipta 62.5-25 MCG/INH Inhalation Aerosol Powder Breath Activated] 60 Each 0 Sig: Inhale 1 puff by mouth once daily Inhaled Combinations Protocol Failed - 04/27/2021 10:30 AM Failed - Active short-acting beta agonist prescription Passed - Visit with relevant provider in past 12 months or upcoming 90 days Recent Visits Date Type Provider Dept 01/20/21 Office Visit Donovan De Santiago MD [facility] & Sleep [facility] [address] Showing recent visits within past 365 days and meeting all other requirements Future Appointments No visits were found meeting these conditions. Showing future appointments within next 90 days and meeting all other requirements fluticasone (FLONASE) 50 MCG/ACT Suspension [Pharmacy Med Name: Fluticasone Propionate 50 MCG/ACT Nasal Suspension] 16 g 0 Sig: USE 1 TO 2 SPRAY(S) IN EACH NOSTRIL ONCE DAILY DIRECTED Nasal Steroids Protocol Passed - 04/27/2021 10:30 AM Passed - Visit with relevant provider in past 12 months or upcoming 90 days Recent Visits Date Type Provider Dept 01/20/21 Office Visit Donovan De Santiago MD [facility] & Sleep [facility] [address] Showing recent visits within past 365 days and meeting all other requirements Future Appointments No visits were found meeting these conditions. Showing future appointments within next 90 days and meeting all other requirements temazepam (RESTORIL) 15 MG Capsule [Pharmacy Med Name: Temazepam 15 MG Oral Capsule] 30 Capsule 0 Sig: TAKE 1 CAPSULE BY MOUTH NIGHTLY NEEDED FOR SLEEP There is no refill protocol information for this order ALPRAZolam (XANAX) 0.25 MG Tablet [Pharmacy Med Name: ALPRAZolam 0.25 MG Oral Tablet] 30 Tablet 0 Sig: TAKE 1 TABLET BY MOUTH THREE TIMES DAILY NEEDED FOR ANXIETY There is no refill protocol information for this order documented in this encounter Plan of Treatment Not on file documented as of this encounter Visit Diagnoses Diagnosis Panlobular emphysema (HCC) Other emphysema documented in this encounter Care Teams Grain Elevator Man Relationship Specialty Start Date End Date Tucker Del Rosario DO [address] [place] [address] PCP - General Internal Medicine 10/04/17 documented as of this encounter
--- OUTSIDE RECORDS SUMMARY | 2025-02-20 12:25 | XMS_ITS | Encounter Summary ---
Author Organization [facility] Address [address] [place] [address] Phone Care Team Providers Care Founder / Ceo Name Role Phone Miguel Ángel Tucker Marta ROQUE Primary Care Provider Reason for Visit * Reason Comments Medication Refill Encounter Details Date Type Department Care Team (Late st Contact Info) Description 05/25/2021 Refill [facility] & [facility] Medicine [facility] #2 [place] [phone] Donovan De Santiago MD [address] [place] [phone] Medication Refill Social History Tobacco Use Types Packs/Day Years Used Date Smoking Tobacco: Former Smokeless Tobacco: Never Alcohol Use Standard Drinks/Week Comments No 0 (1 standard drink = 0.6 oz pur e alcohol) former daily drinker Sex and Gender Information Value Date Recorded Sex Assigned at Not on file 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 Requested Prescriptions Pending Prescriptions Disp Refills Anoro Ellipta 62.5-25 MCG/INH AEROSOL POWDER, BREATH ACTIVATED [Pharmacy Med Name: Anoro Ellipta 62.5-25 MCG/INH Inhalation Aerosol Powder Breath Activated] 60 Each 0 Sig: Inhale 1 puff by mouth once daily Inhaled Combinations Protocol Failed - 05/25/2021 11:16 AM Failed - Active short-acting beta agonist prescription Passed - Visit with relevant provider in past 12 months or upcoming 90 days Recent Visits Date Type Provider Dept 01/20/21 Office Visit Donovan De Santiago MD [facility] Pul & Sleep [facility] [address] Showing recent visits within past 365 days and meeting all other requirements Future Appointments No visits were found meeting these conditions. Showing future appointments within next 90 days and meeting all other requirements Flovent HFA 110 MCG/ACT Aerosol [Pharmacy Med Name: Flovent HFA 110 MCG/ACT Inhalation Aerosol] 12 g 0 Sig: Inhale 2 puffs by mouth twice daily Inhaled Steroids Protocol Failed - 05/25/2021 11:16 AM Failed - Active short-acting beta agonist prescription Passed - Visit with relevant provider in past 12 months or upcoming 90 days Recent Visits Date Type Provider Dept 01/20/21 Office Visit Donovan De Santiago MD [facility] & Sleep [facility] [address] Showing recent visits within past 365 [...] DAILY DIRECTED Nasal Steroids Protocol Passed - 05/25/2021 11:16 AM Passed - Visit with relevant provider in past 12 months or upcoming 90 days Recent Visits Date Type Provider Dept 01/20/21 Office Visit Donovan De Santiago MD [facility] & Sleep [facility] [address] Showing recent visits within past 365 [...] emphysema documented in this encounter Care Teams Founder / Ceo Relationship Specialty Start Date End Date Tucker Del Rosario DO [address] [place] [address] PCP - General Internal Medicine 10/04/17 documented as of this encounter
--- OUTSIDE RECORDS SUMMARY | 2025-02-20 12:25 | XMS_ITS | Encounter Summary ---
Author Organization [facility] Address [address] [place] [address] Phone Care Team Providers Care Field Training Agent Name Role Phone Tucker Del Rosario DO Primary Care Provider Reason for Visit * Reason Comments Medication Refill Encounter Details Date Type Department Care Team (Late st Contact Info) Description 09/27/2020 Refill [facility]IAN GROUP PULMONOLOGY #1 [place] [phone] Donovan De Santiago MD [address] [place] [phone] Medication Refill Social History Tobacco Use Types Packs/Day Years Used Date Smoking Tobacco: Former Smokeless Tobacco: Never Alcohol Use Standard Drinks/Week Comments No 0 (1 standard drink = 0.6 oz pur e alcohol) former daily drinker Sex and Gender Information Value Date Recorded Sex Assigned at Not on file 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
--- OUTSIDE RECORDS SUMMARY | 2025-02-20 12:25 | XMS_ITS | Encounter Summary ---
Author Organization [facility] Address [address] [place] [address] Phone Care Team Providers Care Armature Straightener Name Role Phone Miguel ÁngelTucker Marta ROQUE Primary Care Provider [phone] Reason for Visit * Reason Comments Medication Refill Encounter Details Date Type Department Care Team (Late st Contact Info) Description 01/21/2022 Refill [facility] - Pulmonology & Sleep Medicine - [place] [address] [place] [address] Kayla Dowling APRN, [facility] [address] [address] Medication Refill Social History Tobacco Use Types Packs/Day Years Used Date Smoking Tobacco: Former Smokeless Tobacco: Never Alcohol Use Standard Drinks/Week Comments No 0 (1 standard drink = 0.6 oz pur e alcohol) former daily drinker Sex and Gender Information Value Date Recorded Sex Assigned at Not on file 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
--- OUTSIDE RECORDS SUMMARY | 2025-02-20 12:25 | XMS_ITS | Encounter Summary ---
Author Organization [facility] Address [address] [place] [address] [place] [place] [address] Phone Care Team Providers Care Spinning Room Worker Name Role Phone Tucker Del Rosario DO Primary Care Provider Reason for Visit * Reason Comments Medication Refill Encounter Details Date Type Department Care Team (Late st Contact Info) Description 06/29/2020 Refill [facility] PHYSICIAN GROUP PULMONOLOGY #1 [place] [phone] Donovan De Santiago MD [address] [place] [phone] Medication Refill Social History Tobacco Use Types Packs/Day Years Used Date Smoking Tobacco: Former Smokeless Tobacco: Never Alcohol Use Standard Drinks/Week Comments No 0 (1 standard drink = 0.6 oz pur e alcohol) former daily drinker Sex and Gender Information Value Date Recorded Sex Assigned at Not on file 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
--- OUTSIDE RECORDS SUMMARY | 2025-02-20 12:25 | XMS_ITS | Encounter Summary ---
Author Organization [facility] Address [address] [place] [address] Phone Care Team Providers Care Toilet Products Molder Name Role Phone Tucker Del Rosario DO Primary Care Provider [phone] Reason for Visit * Reason Comments Medication Refill Encounter Details Date Type Department Care Team (Late st Contact Info) Description 07/28/2020 Refill [facility] PHYSICIAN GROUP PULMONOLOGY #1 [place] [phone] Donovan De Santiago MD [address] [place] [phone] Medication Refill Social History Tobacco Use Types Packs/Day Years Used Date Smoking Tobacco: Former Smokeless Tobacco: Never Alcohol Use Standard Drinks/Week Comments No 0 (1 standard drink = 0.6 oz pur e alcohol) former daily drinker Sex and Gender Information Value Date Recorded Sex Assigned at Not on file 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
--- OUTSIDE RECORDS SUMMARY | 2025-02-20 12:25 | XMS_ITS | Encounter Summary ---
Author Organization [facility] Address [address] [place] [address] Phone Care Team Providers Care Concert Pianist Name Role Phone Miguel Ángel Tucker Marta ROQUE Primary Care Provider [phone] Reason for Visit * Reason Comments Medication Refill Encounter Details Date Type Department Care Team (Late st Contact Info) Description 06/29/2021 Refill [facility] - Pulmonology & Sleep Medicine [facility] #2 [place] [phone] Donovan De Santiago MD [address] [place] [phone] Medication Refill Social History Tobacco Use Types Packs/Day Years Used Date Smoking Tobacco: Former Smokeless Tobacco: Never Alcohol Use Standard Drinks/Week Comments No 0 (1 standard drink = 0.6 oz pur e alcohol) former daily drinker Sex and Gender Information Value Date Recorded Sex Assigned at Not on file 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 Requested Prescriptions Pending Prescriptions Disp Refills Anoro Ellipta 62.5-25 MCG/INH AEROSOL POWDER, BREATH ACTIVATED [Pharmacy Med Name: Anoro Ellipta 62.5-25 MCG/INH Inhalation Aerosol Powder Breath Activated] 60 Each 0 Sig: Inhale 1 puff by mouth once daily Inhaled Combinations Protocol Failed - 06/29/2021 9:24 AM Failed - Active short-acting beta agonist prescription Passed - Visit with relevant provider in past 12 months or upcoming 90 days Recent Visits Date Type Provider Dept 01/20/21 Office Visit Donovan De Santiago MD [facility] & Sleep [facility] Showing recent visits within past 365 days and meeting all other requirements Future Appointments No visits were found meeting these conditions. Showing future appointments within next 90 days and meeting all other requirements ALPRAZolam (XANAX) 0.25 MG Tablet [Pharmacy Med Name: ALPRAZolam 0.25 MG Oral Tablet] 30 Tablet 0 Sig: TAKE 1 TABLET BY MOUTH THREE TIMES DAILY NEEDED FOR ANXIETY There is no refill protocol information for this order temazepam (RESTORIL) 15 MG Capsule [Pharmacy Med Name: Temazepam 15 MG Oral Capsule] 30 Capsule 0 Sig: TAKE 1 CAPSULE BY MOUTH NIGHTLY NEEDED FOR SLEEP There is no refill protocol information for this order fluticasone (FLONASE) 50 MCG/ACT Suspension [Pharmacy Med Name: Fluticasone Propionate 50 MCG/ACT Nasal Suspension] 16 g 0 Sig: USE 1 TO 2 SPRAY(S) IN EACH NOSTRIL ONCE DAILY DIRECTED Nasal Steroids Protocol Passed - 06/29/2021 9:24 AM Passed - Visit with relevant provider in past 12 months or upcoming 90 days Recent Visits Date Type Provider Dept 01/20/21 Office Visit Donovan De Santiago MD [facility] & Sleep [facility] [address] Showing recent visits within past 365 days and meeting all other requirements Future Appointments No visits were found meeting these conditions. Showing future appointments within next 90 days and meeting all other requirements documented in this encounter Plan of Treatment Not on file documented as of this encounter Visit Diagnoses Diagnosis Panlobular emphysema (HCC) Other emphysema documented in this encounter Care Teams Concert Pianist Relationship Specialty Start Date End Date Tucker Del Rosario DO [address] [place] [address], [place] [address] PCP - General Internal Medicine 10/04/17 documented as of this encounter
--- OUTSIDE RECORDS SUMMARY | 2025-02-20 12:25 | XMS_ITS | Encounter Summary ---
Author Organization [facility] Address [address] [place] [address] Phone Care Team Providers Care Burlap Man Name Role Phone Tucker Del Rosario DO Primary Care Provider [phone] Reason for Visit * Reason Comments Medication Refill Encounter Details Date Type Department Care Team (Late st Contact Info) Description 04/30/2020 Refill [facility] PHYSICIAN GROUP PULMONOLOGY #1 [place] [phone] Donovan De Santiago MD #2 [place] [phone] Medication Refill Social History Tobacco Use Types Packs/Day Years Used Date Smoking Tobacco: Former Smokeless Tobacco: Never Alcohol Use Standard Drinks/Week Comments No 0 (1 standard drink = 0.6 oz pur e alcohol) former daily drinker Sex and Gender Information Value Date Recorded Sex Assigned at Not on file 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
--- OUTSIDE RECORDS SUMMARY | 2025-02-20 12:25 | XMS_ITS | Encounter Summary ---
Author Organization [facility] Address [address] [place] [address] Phone Care Team Providers Care Manager Placement Name Role Phone Tucker Del Rosario DO Primary Care Provider [phone] Reason for Visit * Reason Comments Medication Refill Encounter Details Date Type Department Care Team (Late st Contact Info) Description 08/31/2020 Refill [facility] #1 [place] [phone] Donovan De Santiago MD [address]2 [place] [phone] Medication Refill Social History Tobacco Use Types Packs/Day Years Used Date Smoking Tobacco: Former Smokeless Tobacco: Never Alcohol Use Standard Drinks/Week Comments No 0 (1 standard drink = 0.6 oz pur e alcohol) former daily drinker Sex and Gender Information Value Date Recorded Sex Assigned at Not on file Legal Sex Male 1:21 PM [place] 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
--- OUTSIDE RECORDS SUMMARY | 2025-02-20 12:25 | XMS_ITS | Encounter Summary ---
Author Organization [facility] Address [address] [place] [address] Phone Care Team Providers Care Cylinder Batcher Name Role Phone Tucker Del Rosario DO Primary Care Provider Reason for Visit * Reason Comments Medication Refill Encounter Details Date Type Department Care Team (Late st Contact Info) Description 12/29/2020 Refill [facility] PULMON[facility] #1 [place] [phone] Donovan De Santiago MD [address] [place] [phone] Medication Refill Social History Tobacco Use Types Packs/Day Years Used Date Smoking Tobacco: Former Smokeless Tobacco: Never Alcohol Use Standard Drinks/Week Comments No 0 (1 standard drink = 0.6 oz pur e alcohol) former daily drinker Sex and Gender Information Value Date Recorded Sex Assigned at Not on file Legal Sex Male 1:21 PM LEGAL 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
--- OUTSIDE RECORDS SUMMARY | 2025-02-20 12:25 | XMS_ITS | Encounter Summary ---
Author Organization [facility] Address [address] [place] [address] Phone Care Team Providers Care Die Tripper Name Role Phone Tucker Del Rosario DO Primary Care Provider [phone] Reason for Visit * Reason Comments Medication Refill Encounter Details Date Type Department Care Team (Late st Contact Info) Description 12/24/2021 Refill [facility] - Pulmonology & Sleep Medicine - [place] [address] [place] [phone] Kayla Dowling APRN, [facility] [address] [address] Medication Refill Social History Tobacco Use Types Packs/Day Years Used Date Smoking Tobacco: Former Smokeless Tobacco: Never Alcohol Use Standard Drinks/Week Comments No 0 (1 standard drink = 0.6 oz pur e alcohol) former daily drinker Sex and Gender Information Value Date Recorded Sex Assigned at Not on file 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 Requested Prescriptions Pending Prescriptions Disp Refills ALPRAZolam (XANAX) 0.25 MG Tablet [Pharmacy Med Name: ALPRAZolam 0.25 MG Oral Tablet] 30 Tablet 0 Sig: TAKE 1 TABLET BY MOUTH THREE TIMES DAILY NEEDED FOR ANXIETY Not Delegated - Off Protocol Failed - 12/24/2021 11:50 AM Failed - This refill cannot be delegated Passed - Visit with relevant provider in past 12 months or upcoming 90 days Recent Visits Date Type Provider Dept 01/20/21 Office Visit Donovan De Santiago MD [facility] Showing recent visits within past 365 days and meeting all other requirements Future Appointments No visits were found meeting these conditions. Showing future appointments within next 90 days and meeting all other requirements documented in this encounter Plan of Treatment Not on file documented as of this encounter Visit Diagnoses Diagnosis Panlobular emphysema (HCC) Other emphysema documented in this encounter Care Teams Die Tripper Relationship Specialty Start Date End Date Tucker Del Rosario DO [address] [place] [address] PCP - General Internal Medicine 10/04/17 documented as of this encounter
--- OUTSIDE RECORDS SUMMARY | 2025-02-20 12:25 | XMS_ITS | Encounter Summary ---
Author Organization [facility] Address [address] [place] [address] [place] [address] Phone Care Team Providers Care Oil Plant Operator Name Role Phone Tucker Del Rosario DO Primary Care Provider [phone] Reason for Visit * Reason Comments Medication Refill Encounter Details Date Type Department Care Team (Late st Contact Info) Description 03/31/2020 Refill [facility]ULMONOLOG[facility] #1 [place] [phone] Donovan De Santiago MD [address] [place] [phone] Medication Refill Social History Tobacco Use Types Packs/Day Years Used Date Smoking Tobacco: Former Smokeless Tobacco: Never Alcohol Use Standard Drinks/Week Comments No 0 (1 standard drink = 0.6 oz pur e alcohol) former daily drinker Sex and Gender Information Value Date Recorded Sex Assigned at Not on file 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
--- OUTSIDE RECORDS SUMMARY | 2025-02-20 12:25 | XMS_ITS | Encounter Summary ---
Author Organization [facility] Address [address] [place] [address] Phone Care Team Providers Care Furniture Arranger Name Role Phone Tucker Del Rosario DO Primary Care Provider [phone] Reason for Visit * Reason Comments Medication Refill Encounter Details Date Type Department Care Team (Late st Contact Info) Description 10/21/2020 Refill [facility]UL[facility] [address]1 [place] [phone] Donovan De Santiago MD [address] [place] [phone] Medication Refill Social History Tobacco Use Types Packs/Day Years Used Date Smoking Tobacco: Former Smokeless Tobacco: Never Alcohol Use Standard Drinks/Week Comments No 0 (1 standard drink = 0.6 oz pur e alcohol) former daily drinker Sex and Gender Information Value Date Recorded Sex Assigned at Not on file 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
--- OUTSIDE RECORDS SUMMARY | 2025-02-20 12:25 | XMS_ITS | Encounter Summary ---
Author Organization [facility] Address [address] [place] [address] Phone Care Team Providers Care Wealth Management Director Name Role Phone Tucker Del Rosario DO Primary Care Provider [phone] Reason for Visit * Reason Comments Medication Refill Encounter Details Date Type Department Care Team (Late st Contact Info) Description 02/26/2020 Refill [facility] PULMON[facility] #[address] [place] [phone] Donovan De Santiago MD [address] [place] [phone] Medication Refill Social History Tobacco Use Types Packs/Day Years Used Date Smoking Tobacco: Former Smokeless Tobacco: Never Alcohol Use Standard Drinks/Week Comments No 0 (1 standard drink = 0.6 oz pur e alcohol) former daily drinker Sex and Gender Information Value Date Recorded Sex Assigned at Not on file Legal 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
--- OUTSIDE RECORDS SUMMARY | 2025-02-20 12:25 | XMS_ITS | Encounter Summary ---
Author Organization [facility] Address [address] [place] [address] Phone Care Team Providers Care Fitness Center Attendant Name Role Phone Tucker Del Rosario DO Primary Care Provider [phone] Reason for Visit * Reason Comments Medication Refill Encounter Details Date Type Department Care Team (Late st Contact Info) Description 03/02/2021 Refill [facility]UL[facility] #1 [place] [phone] Donovan De Santiago MD [address] [place] [phone] Medication Refill Social History Tobacco Use Types Packs/Day Years Used Date Smoking Tobacco: Former Smokeless Tobacco: Never Alcohol Use Standard Drinks/Week Comments No 0 (1 standard drink = 0.6 oz pur e alcohol) former daily drinker Sex and Gender Information Value Date Recorded Sex Assigned at Not on file Legal Sex Male 1:21 PM TIPPLE SUPERVISOR Gender Identity Not on file Sexual Orientation Not on file documented as of this encounter Plan of Treatment Not on file documented as of this encounter Visit Diagnoses Diagnosis Panlobular emphysema (HCC) Other emphysema documented in this encounter Care Teams Fitness Center Attendant Relationship Specialty Start Date End Date Tucker Del Rosario DO [address] [place] [address] PCP - General Internal Medicine 10/04/17 documented as of this encounter
--- OUTSIDE RECORDS SUMMARY | 2025-02-20 12:25 | XMS_ITS | Encounter Summary ---
Author Organization [facility] Address [address] [place] [address] Phone Care Team Providers Care Clinical Rn Manager Name Role Phone Tucker Del Rosario DO Primary Care Provider Reason for Visit * Reason Comments Medication Refill Encounter Details Date Type Department Care Team (Late st Contact Info) Description 02/27/2020 Refill [facility] #1 [place] [phone] Donovan De Santiago MD [address] [place] [phone] Medication Refill Social History Tobacco Use Types Packs/Day Years Used Date Smoking Tobacco: Former Smokeless Tobacco: Never Alcohol Use Standard Drinks/Week Comments No 0 (1 standard drink = 0.6 oz pur e alcohol) former daily drinker Sex and Gender Information Value Date Recorded Sex Assigned at Not on file Legal 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
--- OUTSIDE RECORDS SUMMARY | 2025-02-20 12:25 | XMS_ITS | Encounter Summary ---
Author Organization [facility] Address [address] [place] [address] Phone Care Team Providers Care Cullet Crusher Name Role Phone Miguel Ángel Tucker Marta ROQUE Primary Care Provider [phone] Reason for Visit * Reason Comments Medication Refill Encounter Details Date Type Department Care Team (Late st Contact Info) Description 07/28/2021 Refill [facility] - Pul[facility] & [facility] #2 [place] [phone] Donovan De Santiago MD [address] [place] [phone] Medication Refill Social History Tobacco Use Types Packs/Day Years Used Date Smoking Tobacco: Former Smokeless Tobacco: Never Alcohol Use Standard Drinks/Week Comments No 0 (1 standard drink = 0.6 oz pur e alcohol) former daily drinker Sex and Gender Information Value Date Recorded Sex Assigned at Not on file Legal 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 Requested Prescriptions Pending Prescriptions Disp Refills Anoro Ellipta 62.5-25 MCG/INH AEROSOL POWDER, BREATH ACTIVATED [Pharmacy Med Name: Anoro Ellipta 62.5-25 MCG/INH Inhalation Aerosol Powder Breath Activated] 60 Each 0 Sig: Inhale 1 puff by mouth once daily Inhaled Combinations Protocol Failed - 07/28/2021 3:11 PM Failed - Active short-acting beta agonist prescription Passed - Visit with relevant provider in past 12 months or upcoming 90 days Recent Visits Date Type Provider Dept 01/20/21 Office Visit Donovan De Santiago MD [facility] [address] Showing recent visits within past [...] DAILY DIRECTED Nasal Steroids Protocol Passed - 07/28/2021 3:11 PM Passed - Visit with relevant provider in past 12 months or upcoming 90 days Recent Visits Date Type Provider Dept 01/20/21 Office Visit Donovan De Santiago MD [facility] [address] Showing recent visits within [...] emphysema documented in this encounter Care Teams Cullet Crusher Relationship Specialty Start Date End Date Tucker Del Rosario DO [address] [place] [address] PCP - General Internal Medicine 10/04/17 documented as of this encounter
--- OUTSIDE RECORDS SUMMARY | 2025-02-20 12:25 | XMS_ITS | Encounter Summary ---
Author Organization [facility] Address [address] [place] [address] Phone Care Team Providers Care Silk Soaker Name Role Phone Tucker Del Rosario DO Primary Care Provider Reason for Visit * Reason Comments Medication Refill Encounter Details Date Type Department Care Team (Late st Contact Info) Description 10/31/2020 Refill [facility] PULMONOLOG[facility] #1 [place] [phone] Donovan De Santiago MD [address] [place] [address] Medication Refill Social History Tobacco Use Types Packs/Day Years Used Date Smoking Tobacco: Former Smokeless Tobacco: Never Alcohol Use Standard Drinks/Week Comments No 0 (1 standard drink = 0.6 oz pur e alcohol) former daily drinker Sex and Gender Information Value Date Recorded Sex Assigned at Not on file Legal 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
--- OUTSIDE RECORDS SUMMARY | 2025-02-20 12:25 | XMS_ITS | Encounter Summary ---
Author Organization [facility] Address [address] [place] [address] Phone Care Team Providers Care Naval Aircrewman Helicopter Name Role Phone Miguel ÁngelTucker Marta ROQUE Primary Care Provider [phone] Reason for Visit * Reason Comments Medication Refill Encounter Details Date Type Department Care Team (Late st Contact Info) Description 01/28/[address] 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 No / Unsure 01/20/2021 11:01 AM CDT documented as of this encounter Plan of Treatment Not on file documented as of this encounter Visit Diagnoses Diagnosis Panlobular emphysema (HCC) Other emphysema documented in this encounter Care Teams Naval Aircrewman Helicopter Relationship Specialty Start Date End Date Tucker Del Rosario DO [address] [place] [address] PCP - General Internal Medicine 10/04/17 documented as of this encounter
--- OUTSIDE RECORDS SUMMARY | 2025-02-20 12:25 | XMS_ITS | Encounter Summary ---
Author Organization [facility] Address [address] [place] [address] Phone Care Team Providers Care Shed Workers Supervisor Name Role Phone Tucker Del Rosario DO Primary Care Provider Reason for Visit * Reason Comments Medication Refill Encounter Details Date Type Department Care Team (Late st Contact Info) Description 05/28/2020 Refill [facility]UL[facility] #1 [place] [phone] Donovan De Santiago MD [address] [place] [phone] Medication Refill Social History Tobacco Use Types Packs/Day Years Used Date Smoking Tobacco: Former Smokeless Tobacco: Never Alcohol Use Standard Drinks/Week Comments No 0 (1 standard drink = 0.6 oz pur e alcohol) former daily drinker Sex and Gender Information Value Date Recorded Sex Assigned at Not on file Legal Sex Male 1:21 PM WARPER FIXER Gender Identity Not on file Sexual Orientation Not on file documented as of this encounter Plan of Treatment Not on file documented as of this encounter Visit Diagnoses Not on filedocumented in this encounter Care Teams Shed Workers Supervisor Relationship Specialty Start Date End Date Tucker Del Rosario DO [address] [place] [address] PCP - General Internal Medicine 10/04/17 documented as of this encounter
--- OUTSIDE RECORDS SUMMARY | 2025-02-20 12:25 | XMS_ITS | Encounter Summary ---
Author Organization [facility] Address [address] [place] [address] Phone Care Team Providers Care Computer Methods Analyst Name Role Phone Nick Del Rosarioter Marta ROQUE Primary Care Provider [phone] Reason for Visit * Reason Comments Medication Refill Encounter Details Date Type Department Care Team (Late st Contact Info) Description 03/26/2021 Refill [facility] PULMONOLOGY #1 [place] [phone] Donovan De Santiago MD [address] [place] [phone] Medication Refill Social History Tobacco Use Types Packs/Day Years Used Date Smoking Tobacco: Former Smokeless Tobacco: Never Alcohol Use Standard Drinks/Week Comments No 0 (1 standard drink = 0.6 oz pur e alcohol) former daily drinker Sex and Gender Information Value Date Recorded Sex Assigned at Not on file Legal 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 Requested Prescriptions Pending Prescriptions Disp Refills Flovent HFA 110 MCG/ACT Aerosol [Pharmacy Med Name: Flovent HFA 110 MCG/ACT Inhalation Aerosol] 12 g 0 Sig: Inhale 2 puffs by mouth twice daily Inhaled Steroids Protocol Failed - 03/26/2021 2:16 PM Failed - Active short-acting beta agonist prescription Passed - Visit with relevant provider in past 12 months or upcoming 90 days Recent Visits Date Type Provider Dept 01/20/21 Office Visit Donovan De Santiago MD [facility] [address] Showing recent visits within past 365 days and meeting all other requirements Future Appointments Date Type Provider Dept 04/20/21 Appointment Donovan De Santiago MD [facility] [address] Showing future appointments within next 90 days [...] DAILY DIRECTED Nasal Steroids Protocol Passed - 03/26/2021 2:16 PM Passed - Visit with relevant provider in past 12 months or upcoming 90 days Recent Visits Date Type Provider Dept 01/20/21 Office Visit Donovan De Santiago MD [facility] [address] Showing recent visits within past 365 days and meeting all other requirements Future Appointments Date Type Provider Dept 04/20/21 Appointment Donovan De Santiago MD [facility] [address] Showing future appointments within next 90 days and meeting all other requirements documented in this encounter Plan of Treatment Not on file documented as of this encounter Visit Diagnoses Diagnosis Panlobular emphysema (HCC) Other emphysema documented in this encounter Care Teams Computer Methods Analyst Relationship Specialty Start Date End Date Tucker Del Rosario DO [address] [place] [address] PCP - General Internal Medicine 10/04/17 documented as of this encounter
--- OUTSIDE RECORDS SUMMARY | 2025-02-20 12:25 | XMS_ITS | Encounter Summary ---
Author Organization [facility] Address [address] [place] [address] Phone Care Team Providers Care Pest Control Pilot Name Role Phone Tucker Del Rosario DO Primary Care Provider Reason for Visit * Reason Comments Medication Refill Encounter Details Date Type Department Care Team (Late st Contact Info) Description 11/26/2020 Refill [facility] PULMONOLOGY #1 [place] [phone] Donovan De Santiago MD [address] [place] [phone] Medication Refill Social History Tobacco Use Types Packs/Day Years Used Date Smoking Tobacco: Former Smokeless Tobacco: Never Alcohol Use Standard Drinks/Week Comments No 0 (1 standard drink = 0.6 oz pur e alcohol) former daily drinker Sex and Gender Information Value Date Recorded Sex Assigned at Not on file Legal Sex Male 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
--- OUTSIDE RECORDS SUMMARY | 2025-02-20 12:25 | XMS_ITS | Encounter Summary ---
Author Organization [facility] Address [address] [place] [address] [place] [address] Phone Care Team Providers Care Transportation Coordinator Name Role Phone Tucker Del Rosario DO Primary Care Provider [phone] Reason for Visit * Reason Comments Medication Refill Encounter Details Date Type Department Care Team (Late st Contact Info) Description 03/04/2021 Refill [facility] #[address] [place] [phone] Donovan De Santiago MD [address] [place] [phone] Medication Refill Social History Tobacco Use Types Packs/Day Years Used Date Smoking Tobacco: Former Smokeless Tobacco: Never Alcohol Use Standard Drinks/Week Comments No 0 (1 standard drink = 0.6 oz pur e alcohol) former daily drinker Sex and Gender Information Value Date Recorded Sex Assigned at Not on file Legal Sex Male 1: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
--- OUTSIDE RECORDS SUMMARY | 2025-02-20 12:26 | XMS_ITS | Encounter Summary ---
Author Organization [facility] Address [address] [place] [address] Phone Care Team Providers Care Resource Conservation Specialist Name Role Phone Miguel ÁngelTucker Marta ROQUE Primary Care Provider Reason for Visit * Reason Comments Medication Refill Encounter Details Date Type Department Care Team (Late st Contact Info) Description 10/27/2021 Refill [facility] - Pulmonology & Sleep Medicine [facility] [address] [place] [phone] Donovan De Santiago MD [address] [place] [phone] Medication Refill Social History Tobacco Use Types Packs/Day Years Used Date Smoking Tobacco: Former Smokeless Tobacco: Never Alcohol Use Standard Drinks/Week Comments No 0 (1 standard drink = 0.6 oz pur e alcohol) former daily drinker Sex and Gender Information Value Date Recorded Sex Assigned at Not on file Legal Sex Male 1:21 PM CYLINDER CHECKER Gender Identity Not on file Sexual Orientation Not on file documented as of this encounter Miscellaneous Notes * Telephone Encounter - Shira Mckeon RN - 10/27/2021 10:03 AM CYLINDER CHECKER Medication failed the protocol, provider to review and approve the medication order if appropriate. Requested Prescriptions Pending Prescriptions Disp Refills ALPRAZolam (XANAX) 0.25 MG Tablet [Pharmacy Med Name: ALPRAZolam 0.25 MG Oral Tablet] 30 Tablet 0 Sig: TAKE 1 TABLET BY MOUTH THREE TIMES DAILY NEEDED FOR ANXIETY Not Delegated - Off Protocol Failed - 10/27/2021 10:03 AM Failed - This refill cannot be delegated Passed - Visit with relevant provider in past 12 months or upcoming 90 days Recent Visits Date Type Provider Dept 01/20/21 Office Visit Donovan De Santiago MD [facility] Showing recent visits within past 365 days and meeting all other requirements Future Appointments No visits were found meeting these conditions. Showing future appointments within next 90 days and meeting all other requirements NDER CHECKER documented in this encounter Plan of Treatment Not on file documented as of this encounter Visit Diagnoses Diagnosis Panlobular emphysema (HCC) Other emphysema documented in this encounter Care Teams Resource Conservation Specialist Relationship Specialty Start Date End Date Tucker Del Rosario DO [address] [place] [id number] PCP - General Internal Medicine 10/04/17 documented as of this encounter
--- OUTSIDE RECORDS SUMMARY | 2025-02-20 12:26 | XMS_ITS | Encounter Summary ---
Author Organization [facility] Address [address] [place] [address] Phone Care Team Providers Care Dye Tub Tender Name Role Phone Miguel Ángel Tucker Marta ROQUE Primary Care Provider Reason for Visit * Reason Comments Medication Refill Encounter Details Date Type Department Care Team (Late st Contact Info) Description 09/28/2021 Refill [facility] - Pulmonology & Sleep Medicine [facility] [address] [place] [phone] Donovan De Santiago MD [address] [place] [phone] Medication Refill Social History Tobacco Use Types Packs/Day Years Used Date Smoking Tobacco: Former Smokeless Tobacco: Never Alcohol Use Standard Drinks/Week Comments No 0 (1 standard drink = 0.6 oz pur e alcohol) former daily drinker Sex and Gender Information Value Date Recorded Sex Assigned at Not on file Legal Sex Male 1:21 PM SUPERVISOR PRODUCTION DEPARTMENT Gender Identity Not on file Sexual Orientation Not on file documented as of this encounter Miscellaneous Notes * Telephone Encounter - Shira Mckeon RN - 09/28/2021 12:00 PM SUPERVISOR PRODUCTION DEPARTMENT Medication failed the protocol, provider to review and approve the medication order if appropriate. Requested Prescriptions Pending Prescriptions Disp Refills Flovent HFA 110 MCG/ACT Aerosol [Pharmacy Med Name: Flovent HFA 110 MCG/ACT Inhalation Aerosol] 12 g 0 Sig: Inhale 2 puffs by mouth twice daily Inhaled Steroids Protocol Failed - 09/28/2021 11:48 AM Failed - Active short-acting beta agonist prescription Passed - Visit with relevant provider in past 12 months or upcoming 90 days Recent Visits Date Type Provider Dept 01/20/21 Office Visit Donovan De Santiago MD [facility] Showing recent visits within past 365 days and meeting all other requirements Future Appointments No visits were found meeting these conditions. Showing future appointments within next 90 days and meeting all other requirements RVISOR PRODUCTION DEPARTMENT documented in this encounter Plan of Treatment Not on file documented as of this encounter Visit Diagnoses Not on filedocumented in this encounter Care Teams Dye Tub Tender Relationship Specialty Start Date End Date Tucker Del Rosario DO [address] [place] [id number] PCP - General Internal Medicine 10/04/17 documented as of this encounter
--- OUTSIDE RECORDS SUMMARY | 2025-02-20 12:26 | XMS_ITS | Encounter Summary ---
Author Organization [facility] Address [address] [place] [address] Phone Care Team Providers Care Pellet Preparation Operator Name Role Phone Miguel ÁngelTucker Marta ROQUE Primary Care Provider Reason for Visit * Reason Comments Medication Refill Encounter Details Date Type Department Care Team (Late st Contact Info) Description 09/23/2021 Refill [facility] - Pulmonology & Sleep Medicine [facility] [address] [place] [phone] Donovan De Santiago MD [address] [place] [phone] Medication Refill Social History Tobacco Use Types Packs/Day Years Used Date Smoking Tobacco: Former Smokeless Tobacco: Never Alcohol Use Standard Drinks/Week Comments No 0 (1 standard drink = 0.6 oz pur e alcohol) former daily drinker Sex and Gender Information Value Date Recorded Sex Assigned at Not on file Legal Sex Male 1:21 PM ARTS EDUCATION TEACHER Gender Identity Not on file Sexual Orientation Not on file documented as of this encounter Miscellaneous Notes * Telephone Encounter - Shira Mckeon RN - 09/23/2021 11:55 AM ARTS EDUCATION TEACHER Medication failed the protocol, provider to review and approve the medication order if appropriate. Requested Prescriptions Pending Prescriptions Disp Refills Anoro Ellipta 62.5-25 MCG/INH AEROSOL POWDER, BREATH ACTIVATED [Pharmacy Med Name: Anoro Ellipta 62.5-25 MCG/INH Inhalation Aerosol Powder Breath Activated] 60 Each 0 Sig: Inhale 1 puff by mouth once daily Inhaled Combinations Protocol Failed - 09/23/2021 11:55 AM Failed - Active short-acting beta agonist prescription Passed - Visit with relevant provider in past 12 months or upcoming 90 days Recent Visits Date Type Provider Dept 01/20/21 Office Visit Donovan De Santiago MD [facility] Showing recent visits within past [...] DAILY DIRECTED Nasal Steroids Protocol Passed - 09/23/2021 11:55 AM Passed - Visit with relevant provider in past 12 months or upcoming 90 days Recent Visits Date Type Provider Dept 01/20/21 Office Visit Donovan De Santiago MD [facility] & [facility] Showing recent visits within past 365 days and meeting all other requirements Future Appointments No visits were found meeting these conditions. Showing future appointments within next 90 days and meeting all other requirements EDUCATION TEACHER documented in this encounter Plan of Treatment Not on file documented as of this encounter Visit Diagnoses Diagnosis Panlobular emphysema (HCC) Other emphysema documented in this encounter Care Teams Pellet Preparation Operator Relationship Specialty Start Date End Date Tucker Del Rosario DO [address] [place] [phone] PCP - General Internal Medicine 10/04/17 documented as of this encounter
--- OUTSIDE RECORDS SUMMARY | 2025-02-20 12:26 | XMS_ITS | Encounter Summary ---
Author Organization [facility] Address [address] [place] [address] Phone Care Team Providers Care Finance Professor Name Role Phone Miguel ÁngelTucker Marta ROQUE Primary Care Provider Reason for Visit * Reason Comments Medication Refill Encounter Details Date Type Department Care Team (Late st Contact Info) Description 01/21/2022 Refill [facility] - Pulmonology & Sleep Medicine [facility] [address] [place] [phone] Donovan De Santiago MD [address] [place] [phone] Medication Refill Social History Tobacco Use Types Packs/Day Years Used Date Smoking Tobacco: Former Smokeless Tobacco: Never Alcohol Use Standard Drinks/Week Comments No 0 (1 standard drink = 0.6 oz pur e alcohol) former daily drinker Sex and Gender Information Value Date Recorded Sex Assigned at Not on file Legal Sex Male 1:21 PM DISPOSITION CLERK Gender Identity Not on file Sexual Orientation Not on file documented as of this encounter Miscellaneous Notes * Telephone Encounter - Shira Mckeon RN - 01/21/2022 11:48 AM CDT Patient needs and appointment documented in this encounter Plan of Treatment Not on file documented as of this encounter Visit Diagnoses Diagnosis Panlobular emphysema (HCC) Other emphysema documented in this encounter Care Teams Finance Professor Relationship Specialty Start Date End Date Tucker Del Rosario DO [address] [place] [address] PCP - General Internal Medicine 10/04/17 documented as of this encounter
--- OUTSIDE RECORDS SUMMARY | 2025-02-20 12:26 | XMS_ITS | Encounter Summary ---
Author Organization [facility] Address [address] [place] [address] [place] [address] Phone Care Team Providers Care Digital Advertising Specialist Name Role Phone Miguel ÁngelTucker Marta ROQUE Primary Care Provider Reason for Visit * Reason Comments Medication Refill Encounter Details Date Type Department Care Team (Late st Contact Info) Description 11/23/2021 Refill [facility] - Pulmonology & Sleep Medicine [facility] [address] [place] [phone] Donovan De Santiago MD [address] [place] [phone] Medication Refill Social History Tobacco Use Types Packs/Day Years Used Date Smoking Tobacco: Former Smokeless Tobacco: Never Alcohol Use Standard Drinks/Week Comments No 0 (1 standard drink = 0.6 oz pur e alcohol) former daily drinker Sex and Gender Information Value Date Recorded Sex Assigned at Not on file Legal Sex Male 1:21 PM CELLOPHANE BATH MIXER Gender Identity Not on file Sexual Orientation Not on file documented as of this encounter Miscellaneous Notes * Telephone Encounter - Shira Mckeon RN - 11/23/2021 10:32 AM CELLOPHANE BATH MIXER Medication failed the protocol, provider to review and approve the medication order if appropriate. Requested Prescriptions Pending Prescriptions Disp Refills ALPRAZolam (XANAX) 0.25 MG Tablet [Pharmacy Med Name: ALPRAZolam 0.25 MG Oral Tablet] 30 Tablet 0 Sig: TAKE 1 TABLET BY MOUTH THREE TIMES DAILY NEEDED FOR ANXIETY Not Delegated - Off Protocol Failed - 11/23/2021 10:03 AM Failed - This refill cannot be delegated Passed - Visit with relevant provider in past 12 months or upcoming 90 days Recent Visits Date Type Provider Dept 01/20/21 Office Visit Donovan De Santiago MD [facility] Showing recent visits within past 365 days and meeting all other requirements Future Appointments No visits were found meeting these conditions. Showing future appointments within next 90 days and meeting all other requirements OPHANE BATH MIXER documented in this encounter Plan of Treatment Not on file documented as of this encounter Visit Diagnoses Diagnosis Panlobular emphysema (HCC) Other emphysema documented in this encounter Care Teams Digital Advertising Specialist Relationship Specialty Start Date End Date Tucker Del Rosario DO [address] [place] [address] PCP - General Internal Medicine 10/04/17 documented as of this encounter
--- OUTSIDE RECORDS SUMMARY | 2025-02-20 12:26 | XMS_ITS | Encounter Summary ---
Author Organization [facility] Address [address] [place] [address] [place] [address] Phone Care Team Providers Care Drag Seiner Name Role Phone Tucker Del Rosario DO Primary Care Provider [phone] Reason for Visit * Reason Comments Medication Refill Encounter Details Date Type Department Care Team (Late st Contact Info) Description 08/24/2021 Refill [facility] Pul[facility]ology & Sleep [facility] #2 [place] [phone] Donovan De Santiago MD [address] [place] [phone] Medication Refill Social History Tobacco Use Types Packs/Day Years Used Date Smoking Tobacco: Former Smokeless Tobacco: Never Alcohol Use Standard Drinks/Week Comments No 0 (1 standard drink = 0.6 oz pur e alcohol) former daily drinker Sex and Gender Information Value Date Recorded Sex Assigned at Not on file Legal Sex Male 1:21 PM CLINICAL RESEARCH SPEC Gender Identity Not on file Sexual Orientation Not on file documented as of this encounter Plan of Treatment Not on file documented as of this encounter Visit Diagnoses Diagnosis Panlobular emphysema (HCC) Other emphysema documented in this encounter Care Teams Drag Seiner Relationship Specialty Start Date End Date Tucker Del Rosario DO [address] [place] [address] PCP - General Internal Medicine 10/04/17 documented as of this encounter
--- OUTSIDE RECORDS SUMMARY | 2025-02-20 12:26 | XMS_ITS | Clinical Summary ---
Author Organization [facility] Address [address] [facility] [place] [address] Phone Care Team Providers Care Classifying Machine Operator Name Role Phone Tucker Del Rosario DO Primary Care Provider Allergies Active Allergy Reactions Criticality Noted Date Comments Budesonide-Formotero l Fumarate Other (see Comments) 06/08/2018 Patient reports that Symbicort gives him pneumonia. Medications losartan (COZAAR) 100 MG Tablet 8 Active amLODIPine (NORVASC) 5 MG Tablet 8 Active promethazine-co deine (PHENERGAN WITH CODEINE) 6.25-10 MG/5ML Syrup Take 5 mL by mouth every 4 hours as needed for Cough. 280 mL 8 Active roflumilast (DALIRESP) 500 MCG Tablet Take 1 Tab by mouth daily. 30 Tab 5 9 Active ipratropium-alb uterol (DUO-NEB) 0.5-2.5 (3) MG/3ML SolutionIndicat ions:Panlobular emphysema (HCC) USE 3 ML IN NEBULIZER 4 TIMES DAILY 1080 mL 3 1 Active Anoro Ellipta 62.5-25 MCG/INH AEROSOL POWDER, BREATH ACTIVATEDIndica tions:Panlobula r emphysema (HCC) Inhale 1 puff by mouth once daily 60 Each 1 Active temazepam (RESTORIL) 15 MG CapsuleIndicati ons:Panlobular emphysema (HCC) TAKE 1 CAPSULE BY MOUTH NIGHTLY NEEDED FOR SLEEP 30 Capsule 1 Active fluticasone (FLONASE) 50 MCG/ACT SuspensionIndic ations:Panlobul ar emphysema (HCC) USE 1 TO 2 SPRAY(S) IN EACH NOSTRIL ONCE DAILY DIRECTED 16 g 1 Active Flovent HFA 110 MCG/ACT Aerosol Inhale 2 puffs by mouth twice daily 12 g 1 Active ALPRAZolam (XANAX) 0.25 MG TabletIndicatio ns:Panlobular emphysema (HCC) TAKE 1 TABLET BY MOUTH THREE TIMES DAILY NEEDED FOR ANXIETY 30 Tablet 2 Active Active Problems Problem Noted Date Diagnosed Date Panlobular emphysema 11/23/2017 Pulmonary hypertension 11/23/2017 Essential (primary) hypertension 11/23/2017 Chronic respiratory failure with hypoxia 018 Social History Tobacco Use Types Packs/Day Years Used Date Smoking Tobacco: Former Smokeless Tobacco: Never Tobacco Cessation:Counseling Given: No Alcohol Use Standard Drinks/Week Comments No 0 (1 standard drink = 0.6 oz pur e alcohol) former daily drinker Sex and Gender Information Value Date Recorded Sex Assigned at Not on file Legal Sex Male 1:21 PM VENEER PATCHER Gender Identity Not on file Sexual Orientation Not on file Last Filed Vital Signs Vital Sign Reading Time Taken Comments Blood Pressure 140/70 01/20/2021 11:21 AM CDT Pulse 101 01/20/2021 11:21 AM CDT Temperature 36.4 C (97.6 F) 01/20/2021 11:21 AM CDT Respiratory Rate 16 01/20/2021 11:21 AM CDT Oxygen Saturation 93% 01/20/2021 11:21 AM CDT Inhaled Oxygen Concentration - - Weight 58.1 kg (128 lb) 01/20/2021 11:21 AM CDT Height 170.2 cm (5' 7 ) 01/20/2021 11:21 AM CDT Body Mass Index 20.05 01/20/2021 11:21 AM CDT Plan of Treatment Health Maintenance Due Date Last Done Comments Hepatitis C Virus (HCV) Screening 1935 TdaP Immunization 1935 Pneumococcal Immunization (5 0+ years) (1 of 2 - PCV) 1956 Zoster Immunization (1 of 2) 1987 Respiratory Syncytial Virus (RSV) Immunization (Adult) (1 - 1-dose 75+ series) 2012 Influenza Immunization (#1) 06/10/202411/10, 10/16/2018 SARS-COV-2 Immunization ( - season) 2024 08/21/2021, 12/29/2020, 11/26/2020 Hepatitis B Immunization Aged Out No longer eligible based on patient's age to complete this topic Meningococcal Immunization (ACWY) Aged Out No longer eligible b ased on patient's age to complete this topic Rotavirus Immunization Aged Out No lo nger eligible based on patient's age to complete [place] [address] MEDICARE Care Teams Classifying Machine Operator Relationship Specialty Start Date End Date Tucker Del Rosario DO [address] [place] [phone] PCP - General Internal Medicine 10/04/17
--- OUTSIDE RECORDS SUMMARY | 2025-02-20 12:26 | XMS_ITS | Encounter Summary ---
Author Organization [facility] Address [address] [place] [address] [place] [address] Phone Care Team Providers Care Potato Loader Name Role Phone Miguel Ángel Tucker Marta ROQUE Primary Care Provider Reason for Visit * Reason Comments Medication Refill Encounter Details Date Type Department Care Team (Late st Contact Info) Description 09/01/2021 Refill [facility] - Pulmonology & Sleep Medicine [facility] #[address] [place] [phone] Donovan De Santiago MD [address] [place] [phone] Medication Refill Social History Tobacco Use Types Packs/Day Years Used Date Smoking Tobacco: Former Smokeless Tobacco: Never Alcohol Use Standard Drinks/Week Comments No 0 (1 standard drink = 0.6 oz pur e alcohol) former daily drinker Sex and Gender Information Value Date Recorded Sex Assigned at Not on file Legal Sex Male 1:21 PM INLAYER Gender Identity Not on file Sexual Orientation Not on file documented as of this encounter Miscellaneous Notes * Telephone Encounter - Shira Mckeon RN - 09/01/2021 9:31 AM INLAYER Medication failed the protocol, provider to review and approve the medication order if appropriate. Requested Prescriptions Pending Prescriptions Disp Refills Flovent HFA 110 MCG/ACT Aerosol [Pharmacy Med Name: Flovent HFA 110 MCG/ACT Inhalation Aerosol] 12 g 0 Sig: Inhale 2 puffs by mouth twice daily Inhaled Steroids Protocol Failed - 09/01/2021 9:17 AM Failed - Active short-acting beta agonist prescription Passed - Visit with relevant provider in past 12 months or upcoming 90 days Recent Visits Date Type Provider Dept 01/20/21 Office Visit Donovan De Santiago MD [facility] & Sleep [facility] [address] Showing recent visits within past 365 [...] DAILY DIRECTED Nasal Steroids Protocol Passed - 09/01/2021 9:17 AM Passed - Visit with relevant provider in past 12 months or upcoming 90 days Recent Visits Date Type Provider Dept 01/20/21 Office Visit Donovan De Santiago MD [facility] [address] Showing recent visits within past 365 days and meeting all other requirements Future Appointments No visits were found meeting these conditions. Showing future appointments within next 90 days and meeting all other requirements YER documented in this encounter Plan of Treatment Not on file documented as of this encounter Visit Diagnoses Diagnosis Panlobular emphysema (HCC) Other emphysema documented in this encounter Care Teams Potato Loader Relationship Specialty Start Date End Date Tucker Del Rosario DO [address] [place] [phone] PCP - General Internal Medicine 10/04/17 documented as of this encounter
== END 2025-02-20 12:18 | disposition home or self-care (01) ==
PROVIDERS: PCP Family Medicine; Visit Provider Internal Medicine Pulmonary Disease
DX: R91.8 Other nonspecific abnormal finding of lung field (principal); J43.9 Emphysema, unspecified
CPT/HCPCS: 71250

== ENCOUNTER 2025-04-02 10:17 | Outpatient (CLI) | payer MEDICARE, SELFPAY ==
--- NOTE | ~2025-04-02 | PE_ITS ---
EXAMINATION: PET skull to mid thigh DATE: 04/02/2025 13:02 INDICATION: Lung nodules TECHNIQUE: Blood glucose level was 102 mg/dL. 10.830 mCi of 18-fluorodeoxyglucose (18-FDG) was admini stered i.v. Low dose computed tomography (CT) images were acquired from the base of the brain to the proximal thighs for attenuation correction and anatomic localization. Positron emission tomography (P ET) images were acquired in the same distribution beginning 62 minutes after injection. Images includ ing fused PET/CT images were reconstructed in axial, coronal, and sagittal planes. Automated exposure control technique was employed. The dose-length product was 481.20mGy-cm. COMPARISON: Chest CT dated 02/20/2025 FINDINGS: Head/neck: There is symmetric increased activity in the oral cavity and ocular muscles without CT correlate, lik george physiologic. No pathologically enlarged cervical lymphadenopathy or suspicious foci of increased FDG uptake in the visualized head or neck. Chest: Severe emphysema. No significant change in a 9 x 6 mm nodule in the superior segment of the right low er lobe without associated FDG activity. Decrease in size of a previously 3.4 x 3.0 x 2.7 cm, current ly 2.4 x 2.4 x 1.7 cm spiculated nodule with a couple smaller satellite nodules in the posterior basi lar segment of the right lower lobe with minimal FDG uptake with maximal SUV of 2.6. No pleural effus ion. Heart size is normal. Atherosclerotic coronary artery calcific lesion. No pericardial effusion. Thoracic aorta is normal in caliber. Calcified left hilar and mediastinal lymph nodes consistent with old granulomatous disease. There is an approximately 1 cm focus of increased FDG uptake with maximal SUV of 5.1 without radiologic correlate at the left hilum. No pathologically enlarged or other abnor carmen FDG avid thoracic lymphadenopathy. Abdomen/pelvis/proximal thighs: Physiologic renal accumulation and excretion of FDG activity in the kidneys, bladder and along portio ns of ureters. Photopenic defects associated with multiple low-attenuation bilateral renal cysts the largest measuring 3.2 cm the left kidney. Prostatomegaly measuring 4.8 x 3.7 cm with heterogeneous mi ld uptake with maximal SUV of 2.8. Normal degree and heterogenous pattern of increased uptake through out the liver without radiologic correlate or dominant FDG avid lesion. The gallbladder, pancreas, sp marcy and bilateral adrenal glands are normal. Mild to moderate uptake scattered throughout the bowels without radiologic correlate, also likely physiologic. Fusiform infrarenal abdominal aortic aneurysm measuring 5.0 x 4.9 cm in maximal diameter. There is peripheral heterogeneous increased attenuation within the aneurysm sac concerning for acute intramural hematoma. No other abnormal foci of increased FDG uptake or pathologically enlarged lymphadenopathy in the abdomen, pelvis or proximal thighs. Musculoskeletal: Mild thoracic kyphosis with chronic appearing mild anterior wedging of a few mid thoracic vertebral b odies. No suspicious lytic, blastic or abnormally FDG avid bone lesions. IMPRESSION: 1. Severe emphysema with minimal FDG activity associated with a now 2.4 x 2.4 x 1.7 cm spiculated nod ule in the posterior basilar right lower lobe which has decreased in size since the most current stud y. While reassuring and suggesting an infectious/inflammatory etiology at least accounting for the mo st recent increase in size, would recommend follow-up chest CT in 6 months. 2. No interval change in a second 9 x 6 mm right lower lobe nodule without evident FDG activity. 3. Small focus of mild to moderate uptake at the left hilum. No evident pathologically enlarged corre sponding left hilar lymph nodes and no findings suspicious for primary malignancy and metastatic dise ase would be unlikely. Would consider contrast for the next chest CT to better delineate the size of the lymph nodes. 4. 5.0 cm infrarenal abdominal aortic aneurysm with suggestion of acute intramural hematoma. Correlat e for corresponding back or abdominal pain with either emergent or urgent vascular surgery consultati on as clinically indicated. Dr. Hobson discussed these findings with Dr. Ding at 10:40 AM. 5. Prostatomegaly with mild heterogeneous FDG activity. Reviewed, dictated and finalized at location A. IMPRESSION: 1. Severe emphysema with minimal FDG activity associated with a now 2.4 x 2.4 x 1.7 cm spiculated nodule in the posterior basilar right lower lobe which has d ecreased in size since the most current study. While reassuring and suggesting an infectious/inflammatory etiology at least accounting for the most recent inc rease in size, would recommend follow-up chest CT in 6 months. 2. No interval change in a second 9 x 6 mm right lower lobe nodule without evid ent FDG activity. 3. Small focus of mild to moderate uptake at the left hilum. No evident patholo gically enlarged corresponding left hilar lymph nodes and no findings suspiciou s for primary malignancy and metastatic disease would be unlikely. Would consid er contrast for the next chest CT to better delineate the size of the lymph nod es. 4. 5.0 cm infrarenal abdominal aortic aneurysm with suggestion of acute intramu ral hematoma. Correlate for corresponding back or abdominal pain with either em ergent or urgent vascular surgery consultation as clinically indicated. Dr. Gregor malin discussed these findings with Dr. Ding at 10:40 AM. 5. Prostatomegaly with mild heterogeneous FDG activity.
[2025-04-02 10:57] LABS: Glucose Point of Care 102 mg/dl (65-105)
== END 2025-04-02 10:18 | disposition home or self-care (01) ==
PROVIDERS: PCP Family Medicine; Visit Provider Internal Medicine Hematology & Oncology
DX: C34.31 Malignant neoplasm of lower lobe, right bronchus or lung (principal); J43.9 Emphysema, unspecified; I71.43 Infrarenal abdominal aortic aneurysm, without rupture; N40.0 Benign prostatic hyperplasia without lower urinary tract symptoms
CPT/HCPCS: 78815; A9552

== ENCOUNTER 2025-04-03 12:40 | Emergency (ER) | payer MEDICARE, SELFPAY ==
[2025-04-03] VITALS (12 sets, daily range): BP systolic 114–151; BP diastolic 58–79; PULSE 68–91; RESP 18–27; TEMP 36.7; O2SAT 97–100
--- NOTE | ~2025-04-03 | CT_ITS ---
CTA chest abdomen pelvis Ordering provider: Darlin Hernandez MD History: . c/f infrarenal AAA on PET . Comparison: None. Technique: CT angiogram chest, abdomen and pelvis was performed following timed intravenous injection of contrast. Thin slice axial images and reformatted coronal images were obtained. Three dimensional reformatted images of the chest were also obtained using a [employer] workstation. Radiation reduction t echnique utilized. The dose-length product was 286.02 mGy-cm. 100 mL Omnipaque 350 was given IV. FINDINGS: CHEST: --THORACIC AORTA: Mild atheromatous disease. No aneurysm, dissection or mediastinal hematoma. --GREAT VESSELS: Normal as visualized. --PULMONARY ARTERIES: No pulmonary embolus. --VISUALIZED THORACIC INLET: Normal. --MEDIASTINUM: Coronary arteries: Mild atheromatous disease. Heart/other: The heart is not enlarged. Lymph nodes: No mediastinal or hilar adenopathy. --LUNGS: Severe emphysematous changes of the lungs. A mass is seen in the right lower lobe posteriorly measuri ng 2.1 x 1.5 cm. Further evaluation advised. Smaller nodule also seen in the same lobe measuring 6 mm . No infiltrates or effusions. No pneumothorax. --MUSCULOSKELETAL: Superficial soft tissues: The superficial soft tissues are normal. Bones: Age appropriate degenerative changes of the spine. ABDOMEN/PELVIS: --MUSCULOSKELETAL: Bones: Age appropriate degenerative changes of the spine. Superficial soft tissues: The superficial soft tissues are normal. --UPPER ABDOMINAL ORGANS: Liver: Normal. Gallbladder: Normal. Spleen: Normal. Stomach/duodenum: Normal. Pancreas: Normal. Adrenals: Normal. Kidneys: Bilateral multiple kidney cysts with the largest on the left side measures 3.3 x 2.5 cm and on the right measures 2.4 x 3 cm --PELVIC ORGANS: The bladder is underfilled with thickened wall. Evaluation for cystitis advised. Enl arged prostate with protrusion in the area bladder. No bladder stones. --BOWEL AND MESENTERY: Colon: No evidence of diverticulitis.. Normal appendix. Small Bowel: Normal. No obstruction. Peritoneum/mesentery: No free air or free fluid. No mesenteric lymphadenopathy. --RETROPERITONEUM: No retroperitoneal lymphadenopathy. --ARTERIES: ABDOMINAL AORTA: Abdominal aortic aneurysm with intramural thrombus is seen measuring 5 x 5.5 cm. M ild atheromatous disease. No dissection. RENAL ARTERIES: Mild atherosclerotic changes. CELIAC AXIS: Atherosclerotic changes. SMA: Atherosclerotic changes. RAYSHAWN: There are imaging is not well demonstrated. ILIAC AND VISUALIZED FEMORAL ARTERIES: Atherosclerotic changes with a slight dilatation occlusion o f the left external iliac artery is seen with reconstitution distally. MESENTERIC ARTERIES: Normal. IMPRESSION: CHEST: 1. No acute cardiopulmonary pathology. 2. No pulmonary embolism. 3. Mass in the right lower lobe measuring 1.1 x 1.5 cm. Further evaluation advised. Y ABDOMEN/PELVIS: 1. No evidence of appendicitis, diverticulitis or intestinal obstruction. 2. Abdominal aortic aneurysm with intramural thrombus is seen measuring 5 x 5.5 cm. 3. The origin of the inferior mesenteric artery is not well demonstrated. 4. Occlusion of the left external iliac artery with reconstitution in the left femoral artery area. 5. Bilateral renal cysts. 6. Enlarged prostate with protrusion of the urinary bladder. Dr. Hernandez was notified with the result of the patient at 2: 37 PM on April 03, 2025 Reviewed, dictated and finalized at location A. IMPRESSION: CHEST: 1. No acute cardiopulmonary pathology. 2. No pulmonary embolism. 3. Mass in the right lower lobe measuring 1.1 x 1.5 cm. Further evaluation adv ised. Y ABDOMEN/PELVIS: 1. No evidence of appendicitis, diverticulitis or intestinal obstruction. 2. Abdominal aortic aneurysm with intramural thrombus is seen measuring 5 x 5. 5 cm. 3. The origin of the inferior mesenteric artery is not well demonstrated. 4. Occlusion of the left external iliac artery with reconstitution in the left femoral artery area. 5. Bilateral renal cysts. 6. Enlarged prostate with protrusion of the urinary bladder. Dr. Hernandez was notified with the result of the patient at 2: 37 PM on April 03, 2025
--- NOTE | 2025-04-03 13:10 | ED_ITS ---
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 Patient was undergoing a PET scan given concern for a lung nodule being worked up for cancer. A 5 cm infrarenal abdominal aneurysm was found with concern for intramural hematoma. At baseline patient wears 0.5 liters/minute supplemental oxygen for history of COPD. He is a former smoker who quit a few years ago. He denies any abdominal pain, back pain, syncope, hematuria, or blood in stool. He is not on anticoagulation. He has never received care through any other hospital system. Related Data Allergies Allergy/AdvReac Type Severity Reaction Status Date / Time No Known Allergies Allergy Verified 04/03/25 13:16 PMFSH Past Medical History Medical History Pulmonary nodule Oxygen dependent 0.5 LPM COPD (chronic obstructive pulmonary disease) Family History Family History Father Hypertension Heart disease Social History Social History Smoking packs per day: 0.5 Smoking cigarettes per day: 10.0 Years smoked: 65 Smoking pack-years: 32.50 Smoking status: Former smoker Tobacco type: cigarettes Second hand tobacco smoke exposure: Yes Alcohol intake: former Substance use: never Substance use type: does not use Do You Feel Safe in your Home?: Yes Lack of Transportation: No Lack of Food: Never True Current Housing: I Have Housing Concerned About Future Housing: No Difficulty Paying Gas/Electric Bills: No Difficulty Paying for Meds: No Currently Unemployed: No Education: High School Diploma/GED Difficulty w/ Childcare or Family Care: No Living arrangements: with family Additional living arrangements comments: with sonBryson Gender identity (if verbalized by the patient): Male Spiritual care concerns: No Agree to blood products: Yes Exam 2 Narrative: GENERAL: Well-appearing, well-nourished, and in no acute distress. HEAD: Normocephalic, atraumatic. EYES: Non injected, non icteric ENT: Nares clear, no rhinorrhea or epistaxis. Gross auditory acuity intact. Dry mucous membranes. NECK: Supple. No meningismus. CHEST: Tachypneic but Speaking in full sentences. No respiratory distress. On supplemental oxygen. HEART: Regular rate and rhythm. . ABDOMEN: Soft, nondistended. No rigidity or guarding. Not peritoneal. Pulsatile mass appreciable. EXTREMITIES: Normal range of motion. No lower extremity edema. SKIN: Warm, dry, no rash. NEURO: No focal deficits. Alert and oriented. Answering questions. Following commands. Normal speech without aphasia or dysarthria. PSYCH: Normal mood and affect. Course Vital Signs Vital signs: Vital Signs Pulse Rate 91 04/03/25 13:01 Respiratory Rate 27 H 04/03/25 13:01 Blood Pressure 126/61 04/03/25 13:01 Pulse Oximetry 100 04/03/25 13:01 Temperature 98.0 F 04/03/25 13:11 Pulse Rate 84 04/03/25 19:46 Respiratory Rate 21 H 04/03/25 19:46 Blood Pressure 124/66 04/03/25 19:46 Pulse Oximetry 100 04/03/25 19:46 Oxygen Delivery Nasal Cannula 04/03/25 13:16 Oxygen Flow Rate 2 04/03/25 13:16 MDM - Recheck/Abnormal Lab/Rx MDM Narrative Medical decision making narrative: Patient presents after being advised to go to the ED for findings of 5cm infrarenal aneurysm on outpatient PET scan. In the emergency department he is afebrile with vital signs notable for tachypnea. He has a normocytic anemia although it is stable from previous as previous hemoglobin was 10.1. Spoke with Dr Ding who confirmed he was aware and had advised patient come. Notes patient can follow up with him outpatient once the finding of the aneurysm has been addressed/dealt with. Mild hypokalemia. Repletion ordered. Spoke with [facility] Surgeon Dr Griffin who recommends obtaining CTA and asks it patient wants repair if that ends up being offered. No hematuria. Spoke with radiologist regardin.5 x 5.5 x 5 cm with intramural findings and occlusion but reconstitution. Spoke with Dr Griffin again at [facility] on [address]. Recommend admit to hospitalist, [facility]. [facility] dealing with ER boarders but do believe Bed available later today. Will discuss with hospitalist. After approximately 1 hour, did have supervisor personnel clerks call to see about discussing with hospitalist. She was informed that the vascular surgeon would admit to himself and the hospitalist would be on consult. Notified he had a bed but they wouldn't release it until it was clean. I am later informed bed released. EMS transportation arranged. Patient remained hemodynamically stable. Lab Data Attestation: I reviewed the patient's lab results. 04/03/25 13:06 04/03/25 13:06 Labs: Lab Results 04/03/25 04/03/25 04/03/25 Range/Units 13:06 13:40 13:43 WBC 6.4 (4.5-10.0) K/mm3 RBC 3.75 L (4.6-6.20) M/mm3 Hgb 10.6 L (14.0-18.0) g/dL Hct 33.6 L (42.0-52.0) % MCV 89.6 (80-100) fl MCH 28.3 (26-34) pg MCHC 31.5 L (32-36) g/dl RDW 16.6 H (11.5-14.5) % Plt Count 165 (150-375) k/mm3 MPV 10.1 (7.4-10.4) fl Immature Gran % (Auto) 0.3 (0-0.5) % Neut % (Auto) 66.3 (45.5-73.1) % Lymph % (Auto) 20.3 (18.3-44.2) % [place] % (Auto) 9.3 H (2.6-8.5) % Eos % (Auto) 3.0 (0-4.4) % Baso % (Auto) 0.8 (0.2-1.2) % Lymph # (Auto) 1.31 (0.9-3.2) K/mm3 [place] # (Auto) 0.6 (0.1-0.6) K/mm3 Eos # (Auto) 0.2 (0-0.3) K/mm3 Baso # (Auto) 0.1 (0.0-0.1) K/mm3 Abs Immat Gran (auto) 0.02 (0.00-0.031) K/mm3 Absolute Neuts (auto) 4.3 (1.3-6.7) K/mm3 Absolute Nucleated RBC 0.000 (0.0-0.012) K/mm3 Nucleated RBC % 0.0 (0.0-0.2) % PT 13.9 (11.1-14.7) Seconds INR 1.1 APTT 32.4 (22.3-36.8) Seconds Sodium 140 (137-145) mmol/L Potassium 3.3 L (3.4-5.0) mmol/L Chloride 105 (98-107) mmol/L Carbon Dioxide 26 (22-30) mmol/L Anion Gap 9 (4-12) mmol/L BUN 40 H (9-20) mg/dL Creatinine 1.73 H (0.7-1.3) mg/dL Estim Creat Clear Calc 17 ml/min Estimated GFR 38 L (59 - ) Glucose 99 (65-110) mg/dL Calcium 9.4 (8.4-10.2) mg/dL Total Bilirubin 0.8 (0.2-1.3) mg/dL AST 20 (17-59) U/L ALT 11 (6-50) U/L Alkaline Phosphatase 93 (38-126) U/L Total Protein 7.2 (6.3-8.2) g/dL Albumin 3.8 (3.5-5.1) g/dL Urine Color Yellow (Yellow) Urine Appearance Clear (Clear) Urine pH 6.0 (5.0-9.0) Ur Specific Clarence 1.013 (1.001-1.035) Urine Protein Negative (Negative) mg/dL Urine Glucose (UA) Negative (Negative) mg/dL Urine Ketones Negative (Negative) mg/dL Ur Blood (Man) Negative (Negative) Urine Nitrate Negative (Negative) Urine Bilirubin Negative (Negative) Urine Urobilinogen 0.2 (<2.0) mg/dL Add Ur Microanalysis Reviewed Leukocyte Esterase Rfl 1+ H (Negative) CHRYSTAL/UL Urine RBC 0-2 (0-2) /hpf Urine WBC 0-5 (0-3) /hpf Ur Squamous Epith Cells None seen (Few) /hpf Urine Bacteria None seen /hpf Urine Casts 0-2 Blood Type O Positive Antibody Screen Negative Imaging Data Radiologist's impression: PET SCAN OBTAINED OUTPATIENT: IMPRESSION: 1. Severe emphysema with minimal FDG activity associated with a now 2.4 x 2.4 x 1.7 cm spiculated nodule in the posterior basilar right lower lobe which has decreased in size since the most current study. While reassuring and suggesting an infectious/inflammatory etiology at least accounting for the most recent increase in size, would recommend follow-up chest CT in 6 months. 2. No interval change in a second 9 x 6 mm right lower lobe nodule without evident FDG activity. 3. Small focus of mild to moderate uptake at the left hilum. No evident pathologically enlarged corresponding left hilar lymph nodes and no findings suspicious for primary malignancy and metastatic disease would be unlikely. Would consider contrast for the next chest CT to better delineate the size of the lymph nodes. 4. 5.0 cm infrarenal abdominal aortic aneurysm with suggestion of acute intramural hematoma. Correlate for corresponding back or abdominal pain with either emergent or urgent vascular surgery consultation as clinically indicated. Dr. Hobson discussed these findings with Dr. Ding at 10:40 AM. 5. Prostatomegaly with mild heterogeneous FDG activity. IMPRESSION: CHEST: 1. No acute cardiopulmonary pathology. 2. No pulmonary embolism. 3. Mass in the right lower lobe measuring 1.1 x 1.5 cm. Further evaluation advised. Y ABDOMEN/PELVIS: 1. No evidence of appendicitis, diverticulitis or intestinal obstruction. 2. Abdominal aortic aneurysm with intramural thrombus is seen measuring 5 x 5.5 cm. 3. The origin of the inferior mesenteric artery is not well demonstrated. 4. Occlusion of the left external iliac artery with reconstitution in the left femoral artery area. 5. Bilateral renal cysts. 6. Enlarged prostate with protrusion of the urinary bladder. Dr. Hernandez was notified with the result of the patient at 2: 37 PM on April 03, 2025 Discharge Plan Discharge Clinical Impression: Normocytic anemia, Emphysema, unspecified, Dependence on continuous supplemental oxygen, Right lower lobe pulmonary nodule, Aneurysm of infrarenal abdominal aorta, Hypokalemia Patient Disposition: Acute Care Hospital Condition: Stable Additional Instructions: For the right lower lobe lung nodule, would recommend follow-up chest CT in 6 months. Would consider contrast for the next chest CT to better delineate the size of the lymph nodes. 4. 5.0 cm infrarenal abdominal aortic aneurysm with suggestion of acute intramural hematoma. Correlate for corresponding back or abdominal pain with either emergent or urgent vascular surgery consultation as clinically indicated. Dr. Hobson discussed these findings with Dr. Ding at 10:40 AM. 5. Prostatomegaly with mild heterogeneous FDG activity. Patient Language: Swazi Prescriptions: No Action guaifenesin [Mucus Relief ER] 600 mg Tablet Extended Release 12hr 1,200 mg PO Q12HR Qty: 60 0RF fluticasone propionate [Allergy Relief (fluticasone)] 50 mcg/actuation spray,suspension 1 spray intranasal BID Qty: 16 11RF Rx Instructions: administer into each nostril alprazolam 0.25 mg tablet 0.25 mg PO BID PRN (Reason: Anxiety) Qty: 45 0RF losartan-hydrochlorothiazide 100-25 mg tablet 1 tablet PO DAILY Qty: 90 1RF amlodipine 2.5 mg tablet See Rx Instructions .ROUTE .COMPLEX Qty: 90 0RF Dose Instruction: TAKE 1 TABLET BY MOUTH DAILY Rx Instructions: TAKE 1 TABLET BY MOUTH DAILY trazodone 100 mg tablet 100 mg PO QHS PRN (Reason: insomnia) Qty: 90 1RF Trelegy Ellipta 100-62.5-25 mcg blister with device See Rx Instructions .ROUTE .COMPLEX Qty: 60 6RF Dose Instruction: INHALE 1 PUFF BY MOUTH ONCE DAILY AND RINSE AND SPIT Rx Instructions: INHALE 1 PUFF BY MOUTH ONCE DAILY AND RINSE AND SPIT alprazolam 0.25 mg tablet 0.25 mg PO BID PRN (Reason: anxiety) Qty: 45 0RF Follow-up/Referrals: Jack Lezama MD [Primary Care Provider] - Time of Disposition: 16:53
[2025-04-03 13:13] LABS: Basophils Absolute Auto 0.1 K/mm3 (0.0-0.1); Basophils Percent Auto 0.8 % (0.2-1.2); Eosinophils Absolute Auto 0.2 K/mm3 (0-0.3); Hematocrit 33.6 % (42.0-52.0); Hemoglobin 10.6 g/dL (14.0-18.0); Immature Granulocyte Absolute 0.02 K/mm3 (0.00-0.031); Immature Granulocyte Percent A 0.3 % (0-0.5); Lymphocytes Absolute Auto 1.31 K/mm3 (0.9-3.2); Lymphocytes Percent Auto 20.3 % (18.3-44.2); Mean Corpuscular HGB Conc 31.5 g/dl (32-36); Mean Corpuscular Hemoglobin 28.3 pg (26-34); Mean Corpuscular Volume 89.6 fl (80-100); Mean Platelet Volume 10.1 fl (7.4-10.4); Monocytes Absolute Auto 0.6 K/mm3 (0.1-0.6); Monocytes Percent Auto 9.3 % (2.6-8.5); Neutrophils Absolute Auto 4.3 K/mm3 (1.3-6.7); Neutrophils Percent Auto 66.3 % (45.5-73.1); Platelet Count Result 165 k/mm3 (150-375); Red Blood Count 3.75 M/mm3 (4.6-6.20); Red Cell Distribution Width 16.6 % (11.5-14.5); White Blood Count 6.4 K/mm3 (4.5-10.0)
[2025-04-03 13:24] LABS: Alanine Aminotransferase 11 U/L (6-50); Albumin Level 3.8 g/dL (3.5-5.1); Alkaline Phosphatase 93 U/L (38-126); Anion Gap 9 mmol/L (4-12); Aspartate Amino Transferase 20 U/L (17-59); Bilirubin,Total 0.8 mg/dL (0.2-1.3); Blood Urea Nitrogen 40 mg/dL (9-20); Calcium 9.4 mg/dL (8.4-10.2); Carbon Dioxide 26 mmol/L (22-30); Chloride 105 mmol/L (98-107); Estimated CRCL calculation 17 ml/min; Estimated Glomerular Filt Rate 38; Glucose 99 mg/dL (65-110); Potassium 3.3 mmol/L (3.4-5.0); Sodium 140 mmol/L (137-145); Total Protein 7.2 g/dL (6.3-8.2)
[2025-04-03 13:45] LABS: INR 1.1; Prothrombin Time 13.9 Seconds (11.1-14.7)
[2025-04-03 13:46] LABS: Partial Thromboplastin Time 32.4 Seconds (22.3-36.8)
[2025-04-03] MEDS: POTASSIUM BICARBONATE 25 MEQ TABEF PO (13:46)
[2025-04-03 14:09] LABS: Add Urine Microscopic? YES; Appearance Urine Clear (Clear); Bacteria Urine None Seen /hpf; Bilirubin Urine Negative (Negative); Blood Urine Negative (Negative); Color Urine Yellow (Yellow); Glucose Urine UA Negative (Negative); Ketones Urine Negative (Negative); Leukocyte Esterase Ur 1+ LEU/UL (Negative); Need Manual Microscopic Reviewed; Nitrate Urine Negative (Negative); Non Pathogenic Casts 0-2; Protein Urine Negative (Negative); RBC Urine 0-2 /hpf (0-2); Specific Grav Ur 1.013 (1.001-1.035); Squamous Epithelial Cell Urine None Seen /hpf (Few); Urobilinogen Urine 0.2 mg/dL (<2.0); WBC Urine 0-5 /hpf (0-3)
== END 2025-04-03 20:38 | disposition short-term general hospital (02) ==
PROVIDERS: Emergency Provider Student in an Organized Health Care Education/Training Program; PCP Family Medicine
DX: I71.43 Infrarenal abdominal aortic aneurysm, without rupture (principal); R91.1 Solitary pulmonary nodule; J43.9 Emphysema, unspecified; Z99.81 Dependence on supplemental oxygen; D64.9 Anemia, unspecified; E87.6 Hypokalemia; Z87.891 Personal history of nicotine dependence; Z79.899 Other long term (current) drug therapy; I74.5 Embolism and thrombosis of iliac artery; N28.1 Cyst of kidney, acquired; N40.0 Benign prostatic hyperplasia without lower urinary tract symptoms
CPT/HCPCS: 36415; 71275; 74174; 80053; 81001; 85025; 85610; 85730; 86850; 86900; 86901; 87086; 99285; A9270; Q9967

== ENCOUNTER 2025-04-29 11:52 | Outpatient (CLI) | payer MEDICARE, SELFPAY ==
--- OUTSIDE RECORDS SUMMARY | 2025-04-29 11:57 | XMS_ITS | Encounter Summary ---
Author Organization [facility] Address [address] [place] [address] [place] [place] [address] Phone Care Team Providers Care Knife Glazer Name Role Phone Tucker Del Rosario DO Primary Care Provider Reason for Visit * Reason Comments Medication Refill Encounter Details Date Type Department Care Team (Late st Contact Info) Description 06/29/2020 Refill [facility] [address] [place] [phone] Donovan De Santiago MD [address] [place] [phone] Medication Refill Social History Tobacco Use Types Packs/Day Years Used Date Smoking Tobacco: Former Smokeless Tobacco: Never Alcohol Use Standard Drinks/Week Comments No 0 (1 standard drink = 0.6 oz pur e alcohol) former daily drinker Sex and Gender Information Value Date Recorded Sex Assigned at Not on file 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
--- OUTSIDE RECORDS SUMMARY | 2025-04-29 11:57 | XMS_ITS | Encounter Summary ---
Author Organization [facility] Address [address] [place] [place] [address] Phone Care Team Providers Care Mill Platform Supervisor Name Role Phone Miguel Ángel Tucker Marta ROQUE Primary Care Provider Reason for Visit * Reason Comments Medication Refill Encounter Details Date Type Department Care Team (Late st Contact Info) Description 05/25/2021 Refill [facility] - Pulmonology & Sleep Medicine [facility] [address] [place] [phone] Donovan De Santiago MD [address] [place] [id number] Medication Refill Social History Tobacco Use Types Packs/Day Years Used Date Smoking Tobacco: Former Smokeless Tobacco: Never Alcohol Use Standard Drinks/Week Comments No 0 (1 standard drink = 0.6 oz pur e alcohol) former daily drinker Sex and Gender Information Value Date Recorded Sex Assigned at Not on file 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 Gender Identity Not on file Sexual [...] 01/20/21 Office Visit Donovan De Santiago MD [facility] & Sleep [facility] Showing recent visits within past [...] 01/20/21 Office Visit Donovan De Santiago MD [facility] & Sleep [facility] Showing recent visits within past [...] 01/20/21 Office Visit Donovan De Santiago MD [facility] Showing recent visits within past [...] emphysema documented in this encounter Care Teams Mill Platform Supervisor Relationship Specialty Start Date End Date Tucker Del Rosario DO [address] [place] [address] PCP - General Internal Medicine 10/04/17 documented as of this encounter
--- OUTSIDE RECORDS SUMMARY | 2025-04-29 11:57 | XMS_ITS | Encounter Summary ---
Author Organization [facility] Address [address] [place] [address] Phone Care Team Providers Care Handyperson Name Role Phone Tucker Del Rosario DO Primary Care Provider [phone] Reason for Visit * Reason Comments Medication Refill Encounter Details Date Type Department Care Team (Late st Contact Info) Description 10/31/2020 Refill [facility] [address] [place] [phone] Donovan De Santiago MD [address] [place] [phone] Medication Refill Social History Tobacco Use Types Packs/Day Years Used Date Smoking Tobacco: Former Smokeless Tobacco: Never Alcohol Use Standard Drinks/Week Comments No 0 (1 standard drink = 0.6 oz pur e alcohol) former daily drinker Sex and Gender Information Value Date Recorded Sex Assigned at Not on file Legal Sex Male 1:21 PM RECORD LABEL INTERN Gender Identity Not on file Sexual Orientation Not on file documented as of this encounter Plan of Treatment Not on file documented as of this encounter Visit Diagnoses Diagnosis Panlobular emphysema (HCC) Other emphysema documented in this encounter Care Teams Handyperson Relationship Specialty Start Date End Date Tucker Del Rosario DO [address] [place] [address] PCP - General Internal Medicine 10/04/17 documented as of this encounter
--- OUTSIDE RECORDS SUMMARY | 2025-04-29 11:57 | XMS_ITS | Encounter Summary ---
Author Organization [facility] Address [address] [place] [address] Phone Care Team Providers Care Alcoholism Worker Name Role Phone Miguel Ángel Tucker Marta ROQUE Primary Care Provider [phone] Reason for Visit * Reason Comments Medication Refill Encounter Details Date Type Department Care Team (Late st Contact Info) Description 06/29/2021 Refill [facility] - Pulmonology & Sleep Medicine [facility] [address] [place] [phone] Donovan De Santiago MD [address] [place] [phone] Medication Refill Social History Tobacco Use Types Packs/Day Years Used Date Smoking Tobacco: Former Smokeless Tobacco: Never Alcohol Use Standard Drinks/Week Comments No 0 (1 standard drink = 0.6 oz pur e alcohol) former daily drinker Sex and Gender Information Value Date Recorded Sex Assigned at Not on file Legal Sex Male 1:21 PM 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 Showing future appointments within next 90 days and meeting all other requirements documented in this encounter Plan of Treatment Not on file documented as of this encounter Visit Diagnoses Diagnosis Panlobular emphysema (HCC) Other emphysema documented in this encounter Care Teams Alcoholism Worker Relationship Specialty Start Date End Date Tucker Del Rosario DO [address] [place] [address], [place] [address] PCP - General Internal Medicine 10/04/17 documented as of this encounter
--- OUTSIDE RECORDS SUMMARY | 2025-04-29 11:57 | XMS_ITS | Clinical Summary ---
Author Organization [facility] Oniel Ardon Address [address] [place] [address] Care Team Providers Care Ductfixing Plumber Name Role Phone Jack Lezama MD Primary Care Provider [phone] Allergies No known active allergies Medications ALPRAZolam (XANAX) 0.25 mg tablet Take 0.25 mg by mouth 2 times daily as needed for Anxiety. 03/19/20 25 Active Trelegy Ellipta 100-62.5-25 mcg Disk with Device INHALE ONE PUFF BY MOUTH ONCE DAILY AND RINSE AND SPIT 03/12/20 25 Active traZODone (DESYREL) 100 mg tablet take 1 tablet by mouth every day at bedtime as needed for insomnia 02/19/20 25 Active pantoprazole (Protonix) 40 mg Tablet, Delayed Release (E.C.) Take 1 Tablet (40 mg) by mouth daily. 30 Tablet 1 5 2:46 PM CDT 04/09/20 25 Active metoprolol succinate (Toprol XL) 25 mg Extended Release 24 hour tablet Take 1 Tablet (25 mg) by mouth daily. 30 Tablet 1 5 2:46 PM CDT 04/09/20 25 Active ferrous sulfate 325 mg (65 mg iron) tablet Starting 04/10: Take 1 Tablet (325 mg) by mouth daily. 30 Tablet 1 5 2:46 PM CDT 04/10/20 25 Active aspirin (ECOTRIN EC) 81 mg Tablet, Delayed Release (E.C.) Starting 04/10: Take 1 Tablet (81 mg) by mouth daily. 90 Tablet 5 2:46 PM CDT 04/10/20 25 Active albuterol (PROVENTIL,ACACIA JASMINE) 2.5 mg /3 mL (0.083 %) Solution for Nebulization USE ONE VIAL IN NEBULIZER EVERY 6 HOURS NEEDED FOR SHORTNESS OF BREATH OR WHEEZING 04/16/20 25 Active albuterol sulfate HFA 90 mcg/actuation aerosol inhaler INHALE ONE PUFF BY MOUTH EVERY 4 HOURS NEEDED FOR SHORTNESS OF BREATH OR WHEEZING 04/16/20 25 Active clopidogreL (PLAVIX) 75 mg TabletIndication s:Infrarenal abdominal aortic aneurysm (AAA) without rupture,S/P vascular bypass Starting 04/10: Take 1 Tablet (75 mg) by mouth daily. 90 Tablet 4 04/23/20 25 Active amLODIPine (NORVASC) 2.5 mg tablet Take 1 Tablet by mouth daily. 02/10/20 25 025 Discontinued losartan-hydroCH LOROthiazide (HYZAAR) 100-25 mg tablet Take 1 Tablet by mouth daily. 01/24/20 25 025 Discontinued clopidogreL (PLAVIX) 75 mg Tablet Starting 04/10: Take 1 Tablet (75 mg) by mouth daily. 90 Tablet 5 2:46 PM CDT 04/10/20 25 025 Discontinued Active Problems Problem Noted Date Diagnosed Date Gross hematuria 04/06/2025 Protein-calorie malnutrition, severe 04/04/2025 Infrarenal abdominal aortic aneurysm (AAA) witho ut rupture 04/03/2025 Primary hypertension 04/03/2025 Centrilobular emphysema 04/03/2025 Chronic respiratory failure with hypoxia 025 RAHUL treated with BiPAP 04/03/2025 Lung mass 04/03/2025 Renal insufficiency 04/03/2025 Pulmonary hypertension 11/23/2017 Encounters Date Type Department Care Team Description 04/24/2025 External Device Data STL ABSTRACTION Provider, Abstract 04/23/2025 2:00 PM CDT Office Visit [facility] Front Desk Auxiliary [address] [place] [address] Irma Clarke APN Infrarenal abdominal aortic aneurysm (AAA) without rupture (Primary Dx); Pre-procedure lab exam; S/P vascular bypass; Status post endovascular aneurysm repair (EVAR) 04/23/2025 External Device Data STL ABSTRACTION Provider, Abstract 04/10/2025 Telephone [facility] [address] [facility] [address] [place] [address] Alan Griffin MD Hospital Follow Up 04/09/2025 4:30 PM CDT Telephone Check Up [facility] Oncology and Hematology - [address] [address] [address] Eric Ding MD Malignant neoplasm of lower lobe of right lung (CMS/HCC) (Primary Dx) 04/09/2025 External Device Data STL ABSTRACTION Provider, Abstract 04/09/2025 External Device Data STL ABSTRACTION Provider, Abstract 04/09/2025 External Device Data STL ABSTRACTION Provider, Abstract 04/05/2025 2:12 PM CDT Anesthesia Event [facility] CV Operating Room [address] [place] [address] Cornell Monsalve MD McKenna, Brian T, MD 04/05/2025 1:05 PM CDT - 04/05/2025 7:05 PM CDT Surgery [facility] CV Operating Room [address] [place] [address] Alan Griffin MD AORTIC STENT GRAFT 04/04/2025 Orders Only [facility] [address] [facility] [address] [place] [address] Alan Griffin MD 04/03/2025 9:15 PM CDT - 04/09/2025 3:16 PM CDT Hospital Encounter [facility] Progressive Care [address] [place] [address] Alan Griffin MD Infrarenal abdominal aortic aneurysm (AAA) without rupture Discharge Disposition: Home Health Care Svc 04/03/2025 Travel 04/03/2025 Orders Only [facility] Oncology and Hematology [address] [address] [place] [address] Eric Ding MD 04/02/2025 External Device Data STL ABSTRACTION Provider, Abstract 04/02/2025 External Device Data STL ABSTRACTION Provider, Abstract 04/02/2025 External Device Data STL ABSTRACTION Provider, Abstract 04/02/2025 Orders Only [facility] Oncology and Hematology [address] [address] [place] [address] Eric Ding MD 03/27/2025 9:00 AM CDT Office Visit [facility] Oncology and Hematology [facility] [address] [place] [address] Eric Ding MD Malignant neoplasm of lower lobe of right lung (CMS/HCC) (Primary Dx) from Last 3 Months Family History Medical History Relation Name Comments Heart Disease Brother 1 Heart Disease Brother 2 No Known Problems Child 1 No Known Problems Child 2 No Known Problems Father No Known Problems Mother No Known Problems Sister Relation Name Status Comments Brother 1 Alive Brother 2 Alive Child 1 Alive Child 2 Alive Father Mother Sister Alive Social History Tobacco Use Types Packs/Day Years Used Date Smoking Tobacco: Never Smokeless Tobacco: Never Tobacco Cessation:Counseling Given: Not Answered Alcohol Use Standard Drinks/Week Comments Never 0 (1 standard drink = 0.6 oz pur e alcohol) Sex and Gender Information Value Date Recorded Sex Assigned at Not on file Legal Sex Male 1:01 PM CDT Gender Identity Not on file Sexual Orientation Not on file Last Filed Vital Signs Vital Sign Reading Time Taken Comments Blood Pressure 150/70 04/23/2025 1:55 PM CDT Pulse 81 04/09/2025 10:24 AM CDT Temperature 36.7 C (98.1 F) 04/09/2025 12:00 PM CDT Respiratory Rate 21 04/09/2025 10:24 AM CDT Oxygen Saturation 98% 04/09/2025 10:24 AM CDT Inhaled Oxygen Concentration - - Weight 43.5 kg (96 lb) 04/23/2025 1:55 PM CDT Height 170.2 cm (5' 7) 04/23/2025 1:55 PM CDT Body Mass Index 15.04 04/23/2025 1:55 PM CDT Plan of Treatment Upcoming Encounters Date Type Department Care Team (Late st Contact Info) Description 05/28/2025 12:40 PM CDT Appointment [facility] CT Scan [facility] [address] [place] [address] Irma Clarke, TANK WORKER 625 [facility] [address] [place] [address] 05/28/2025 1:30 PM CDT Appointment [facility] Supp Svcs Blood Flow [address] [place] [address] Irma Clarke, TANK WORKER [address] [address] 05/28/2025 2:30 PM CDT Office Visit [facility] Front Desk Auxiliary [address] [place] [address] Alan Griffin MD [address] [facility] [address] [place] [address] 07/24/2025 2:15 PM CDT Office Visit [facility] Oncology and Hematology - [place] [address] [facility] [address] [place] [address] Eric Ding MD [address] [facility] [address] [place] [address] Health Maintenance Due Date Last Done Comments DTAP/TDAP/TD VACCINES (1 - Tdap) 1954 PNEUMOCOCCAL VACCINE 50+ YEARS (1 of 2 - PCV) 07/04/19 56 Traditional Medicare (ACO) Annual Wellness Visit 07/04 ZOSTER VACCINE (1 of 2) 1987 RSV VACCINE (60+ or ) (1 - 1-dose 75+ series) 2012 INFLUENZA VACCINE (#1) 2025 Medical Devices Implanted Type Area Graphic Art Technician Device Identifier Shelf Expiration Date Model / Serial / Lot Plug Amplatzer 14mm 9-Avp2-014 - [id number] Implanted:Qt y: 1 on 04/05/2025 at [facility] Cardiovascular Device Left: Iliac Artery [employer] [id number] 08/09/2029 9-AVP2- 014 / / [id number] Description:Left common vishal c artery Plug Amplatzer 12mm 9-Avp2-012 - [id number] Implanted:Qt y: 1 on 04/05/2025 by Alan Griffin MD at [facility] Cardiovascular Device Left: Iliac Artery [employer] [id number] 02/06/2030 9-AVP2- 012 / / [id number] Description:Left common vishal c artery Clip Ligating Horizon Sm Ti [id number] - Csc - [id number] Implanted:Qt y: 3 on 04/05/2025 by Alan Griffin MD at [facility] Clip N/A: Groin [employer]LE[employer] INC 01/03/2030 [id number] / / [id number] Clip Ligating Horizon Med Ti [id number] - Csc - [id number] Implanted:Qt y: 4 on 04/05/2025 by Alan Griffin MD at [facility] Clip N/A: Groin TELEFLEX- WECK CLOSURE SYS 01/04/2030 [id number] / / [id number] Graft Vasc Propaten [id number] - [id number] Implanted:Qt y: 1 on 04/05/2025 by Alan Griffin MD at [facility] Graft N/A: Groin [employer] [id number] 09/11/2027 [id number] / [id number] / Description:right to left fe moral-femoral bypass Hemostatic Surgiflo 8ml W/ Thrombin 2994 - [id number] Implanted:Qt y: 2 on 04/05/2025 by Alan Griffin MD at [facility] Hemostatic N/A: Groin J[employer]- [employer] [id number] 04/08/2026 [id number] / / [id number] Stent Graft Excluder Aaa Contralat Leg [id number] - [id number] Implanted:Qt y: 1 on 04/05/2025 by Alan Griffin MD at [facility] Stent Right: Iliac Artery [employer] [id number] 06/17/2027 [id number] / [id number] Description:Right common romeo ac Graft Vasc Excluder 16fr [id number] Conform Aaa Trunk [id number] - [id number] Implanted:Qt y: 1 on 04/05/2025 by Alan Griffin MD at [facility] Stent N/A: Aorta [employer] [id number] 12/08/2027 [id number] / [id number] Description:main body Stent Lifestent Bili 8x80mm 80cm [id number] - [id number] Implanted:Qt y: 1 on 04/05/2025 by Alan Griffin MD at [facility] Stent Right: Groin BARD JOSE RAFAEL VASC [id number] 09/02/2025 [id number] / / [id number] Description:right external i liac artery Explanted Type Area Graphic Art Technician Device Identifier Shelf Expiration Date Model / Serial / Lot Agent Hemostat Surgicel 4x8in 2s - [id number] Explanted:Qt y: 1 on 04/05/2025 by Alan Griffin MD at [facility] Hemostatic N/A: Groin [employer] [id number] 08/09/2029 / / [id number] Procedures Procedure Name Priority Date/Time Associated Diagnosis Comments TELEMETRY REPORT 04/25/2025 10:5 3 AM CDT HEMOGLOBIN AND HEMATOCRIT Routine 2024 1:23 PM CDT TYPE AND SCREEN Routine 04/09/2025 7:12 AM CDT PREPARE RED BLOOD CELLS Routine 04/09/20 6:50 AM CDT BASIC METABOLIC PANEL Routine 04/09/2025 6:30 AM CDT CBC WITHOUT DIFFERENTIAL Routine 025 4:43 AM CDT BASIC METABOLIC PANEL Routine 04/08/2025 1:34 AM CDT CBC WITHOUT DIFFERENTIAL Routine 025 1:34 AM CDT BASIC METABOLIC PANEL Routine 04/07/2025 4:26 AM CDT CBC WITHOUT DIFFERENTIAL Routine 025 4:[address] UROGRAPHY Stat 04/06/2025 7:06 PM CDT URINE CULTURE Routine 04/06/2025 10:58 AM CDT EKG 12-LEAD Routine 04/06/2025 9:13 AM CDT LOAN APPROVER EVALUATE AND TREAT Routine 9:02 AM CDT BASIC METABOLIC PANEL Routine 04/06/2025 5:34 AM CDT CBC WITHOUT DIFFERENTIAL Routine 025 5:34 AM CDT XR CHEST PA OR AP 1 VW Routine 5:53 PM CDT POC ACTIVATED CLOTTING TIME Routine 04/05/2025 3:48 PM CDT POC LACTIC ACID Routine 04/05/2025 3:48 PM CDT OXIMETRY Routine 04/05/2025 3:48 PM CDT METHEMOGLOBIN QUANTITATIVE Routine 04/05/2025 3:48 PM CDT CARBOXYHEMOGLOBIN Routine 04/05/2025 3:4 8 PM CDT BLOOD GAS,(INCL. H+H, LYTES, GLUC) Routine 04/05/2025 3:48 PM CDT POC ACTIVATED CLOTTING TIME Routine 04/05/2025 3:06 PM CDT CENTRAL LINE ADULT QUAD LUMEN Routine 04/05/2025 2:53 PM CDT OR ANES INSERT TUNNELED CV CATH W/O PORT OR PUMP Routine 04/05/2025 2:53 PM CDT OR ANES INSERT CATH, ART, PERCUT, SHORTTERM Routine 04/05/2025 2:51 PM CDT OR ANES INSERT ENDOTRACHEAL AIRWAY Routine 04/05/2025 2:32 PM CDT ILIAC ENDOVASCULAR STENT PLACEMENT 04/05/2025 1:05 PM CDT PVD (peripheral vascular disease) Infrarenal abdominal aortic aneurysm (AAA) without rupture ARTERY EMBOLIZATION 04/05/2025 1 :05 PM CDT PVD (peripheral vascular disease) Infrarenal abdominal aortic aneurysm (AAA) without rupture FEMORAL FEMORAL BYPASS GRAFT 04/05/2025 1:05 PM CDT PVD (peripheral vascular disease) Infrarenal abdominal aortic aneurysm (AAA) without rupture OR VISCER AND INFRARENAL ABDOM AORTA 1 PROSTHESIS 04/05/2025 1:05 PM CDT PVD (peripheral vascular disease) Infrarenal abdominal aortic aneurysm (AAA) without rupture ECHOCARDIOGRAM W/ CONTRAST AGENT Stat 04/05/2025 7:33 AM CDT BASIC METABOLIC PANEL Routine 04/05/2025 1:15 AM CDT CBC WITH DIFFERENTIAL Routine 04/05/2025 1:15 AM CDT US ARTERIAL W SEGMENTAL PRESS LOWER EXT Stat 04/04/2025 5:10 PM CDT TYPE AND SCREEN Routine 04/04/2025 11:59 AM CDT PREPARE RED BLOOD CELLS Routine 04/04/20 11:52 AM CDT PREPARE RED BLOOD CELLS Routine 04/04/20 11:52 AM CDT XR CHEST PA OR AP 1 VW Routine 8:50 AM CDT VERIFICATION BLOOD GROUP Stat 025 1:24 AM CDT Encounter for blood typing PHOSPHORUS Routine 04/04/2025 1:24 AM CDT MAGNESIUM LEVEL Routine 04/04/2025 1:24 AM CDT FERRITIN Routine 04/04/2025 1:24 AM CDT IRON, TIBC, AND PERCENT SATURATION Routine 04/04/2025 1:24 AM CDT BASIC METABOLIC PANEL Routine 04/04/2025 1:24 AM CDT CBC WITH DIFFERENTIAL Routine 04/04/2025 1:24 AM CDT GLUCOSE LEVEL Routine 04/02/2025 1:41 PM CDT PET BONE IMG W CT SKL BSE MID THG Routine 04/02/2025 11:55 AM CDT from Last 3 Months Results * TELEMETRY REPORT (04/25/2025 10:53 AM CDT) us Provider Scanning ECG ORDERABLES Final Result * (ABNORMAL) HEMOGLOBIN AND HEMATOCRIT (04/09/2025 1:23 PM CDT) HEMOGLOBIN 8.7(L) 13.6 - 16.5 g/dL 04/09/2025 2:08 PM CDT [facility] LABORATORY [facility] Comment:Significant change f rom prior result, correlate clinically and redraw if necessary. HEMATOCRIT 26.9(L) 40.0 - 48.0 % 04/09/2025 2:08 PM CDT [employer] LABORATORY SERVICES - [facility] Blood Venipuncture / Unknown 04/09/2025 1:23 PM CDT 04/09/2025 1:53 PM CDT Hannah GRIGSBY HEMATOLOGY ORDERABLES Final Resu lt Performing Organization Address City/[facility]/ZIP Co de Phone Number [facility] [id number] [address] [place] [address] * TYPE AND SCREEN (04/09/2025 7:12 AM CDT) Only the most recent of2 resultswithin the time period is included. ABO GROUP O 04/09/2025 8:30 AM CDT [facility] SERVICES -- [facility] RH (D) TYPE Positive 04/09/2025 8:30 AM CDT [facility] -- [facility] ANTIBODY SCREEN Negative 04/09/2025 8:30 AM CDT [facility] -- [facility] Blood Venipuncture / Unknown 04/09/2025 7:12 AM CDT 04/09/2025 7:26 AM CDT Maria Isabel Arita PA-C BLOOD BANK ORDERABLES Edite d Result - Final [facility] LABORATORY SERVICES -- [facility]# [id number] [facility] [place] [address] [place] [address] * PREPARE RED BLOOD CELLS (04/09/2025 6:50 AM CDT) Only the most recent of3 resultswithin the time period is included. COMPONENT TYPE [id number] [facility] -- [facility] COMPONENT IDENTIFICATION [id number] [facility] SERVICES -- [facility] UNIT ABO O [employer] LABORATORY SERVICES -- [facility] UNIT RH POS [employer] LABORATORY [facility] -- [facility]OSSMATCH Compatible [facility] LABORATORY SERVICES -- [facility] COMPONENT STATUS Transfused ME [facility] LABORATORY SERVICES -- [facility] COMPONENT EXPIRATION DATE/TIME [id number] [facility] LABORATORY SERVICES -- [facility] COMPONENT CODING SYSTEM 5100 [facility] LABORATORY SERVICES -- [facility] VOLUME, BLOOD PRODUCT 350 [facility] LABORATORY SERVICES -- [facility] Other, specify 04/09/2025 6: 50 AM CDT Maria Isabel Arita PA-C LAB TRANSFUSION ORDERABLES Edited Result - Final [facility] LABORATORY SERVICES -- [facility] CLIA# [id number] 5 [facility] [place] [place] [address] * (ABNORMAL) BASIC METABOLIC PANEL (04/09/2025 6:30 AM CDT) Only the most recent of6 resultswithin the time period is included. SODIUM 132(L) 136 - 145 mmol/L 04/09/2025 7:32 AM T [facility] LABORATORY SERVICES - [facility] POTASSIUM 3.5 3.5 - 5.0 mmol/L 04/09/2025 7:32 AM T [facility] LABORATORY SERVICES - [facility] CHLORIDE 103 98 - 107 mmol/L 04/09/2025 7:32 AM T [facility] LABORATORY SERVICES - [facility] CO2 24 22 - 29 mmol/L 04/09/2025 7:32 AM T [facility] LABORATORY SERVICES - . [facility] CALCIUM 7.8(L) 8.6 - 10.2 mg/dL 04/09/2025 7:32 AM T [facility] LABORATORY SERVICES - [facility] BUN 32(H) 8 - 23 mg/dL 04/09/2025 7:32 AM T [facility] LABORATORY SERVICES - [facility] CREATININE 1.35(H) 0.67 - 1.17 mg/dL 04/09/2025 7:32 AM T [facility] LABORATORY SERVICES - [facility] Comment:The GFR result is no t clinically significant on patients <18 or >70 years of age. GLUCOSE 83 74 - 99 mg/dL 04/09/2025 7:32 AM [facility]ORY [facility] GFR 51 mL/min/1.7 3 sq meter 04/09/2025 7:32 AM [facility] Comment:eGFR calculated with 2020 CKD-EPI equation. Vegetarian diet, extremely high or low muscle mass, and may affect results. Cystatin C with Glomerular Filtration Rate is a suitable alternative for these patients. ANION GAP 5(L) 8 - 16 mmol/L 04/09/2025 7:32 AM [facility] Blood Venipuncture / Unknown 04/09/2025 6:30 AM CDT 04/09/2025 6:48 AM CDT us Alan Griffin MD CHEMISTRY ORDERABLES Final Resu lt [facility]# [id number] [address] [place] [address] * (ABNORMAL) CBC WITHOUT DIFFERENTIAL (04/09/2025 4:43 AM CDT) Only the most recent of4 resultswithin the time period is included. WBC 6.2 4.0 - 9.8 K/uL 04/09/2025 6:10 AM [facility] RBC 2.36(L) 4.50 - 5.40 M/uL 04/09/2025 6:10 AM [facility] HEMOGLOBIN 6.7(LL) 13.6 - 16.5 g/dL 04/09/2025 6:10 AM [facility] Comment:Verified by repeat a nalysis. HEMATOCRIT 21.3(L) 40.0 - 48.0 % 04/09/2025 6:10 AM [facility] MCV 90.3 82.0 - 99.0 fL 04/09/2025 6:10 AM [facility] MCH 28.4 27.2 - 32.6 pg 04/09/2025 6:10 AM [facility] MCHC 31.5 31.5 - 35.5 g/dL 04/09/2025 6:10 AM CDT [facility] LABORATORY [facility] PLATELETS 161 140 - 350 K/uL 04/09/2025 6:10 AM CDT [facility] MPV 11.3 9.3 - 12.4 fL 04/09/2025 6:10 AM CDT [facility] RDW 17.2(H) 11.5 - 14.5 % 04/09/2025 6:10 AM CDT [facility] RDW-STDEV 56.6(H) 37.1 - 48.7 fL 04/09/2025 6:10 AM CDT [facility] LAB[facility] Blood Venipuncture / Unknown 04/09/2025 4:43 AM CDT 04/09/2025 5:12 AM CDT us Alan Griffin MD HEMATOLOGY ORDERABLES Final Res ult [facility]# [id number] [facility] [place] [address] * CT UROGRAPHY (04/06/2025 7:06 PM CDT) Anatomical Region Laterality Modality Abdomen, Pelvis Computed Tomogra phy 04/06/2025 6:50 PM CDT Impressions 04/06/2025 7:47 PM CDT IMPRESSION: 1. Right lung base mass and surrounding satellite nodules. Neoplasm is not excluded. 2. Severe emphysematous changes in the lung bases. 3. Retained IV contrast in the kidneys from previous procedure limits evaluation for stone. 4. No enhancing kidney mass is identified. 5. Irregular appearing bladder wall which may be due to chronic distention, diverticula, cystitis, trauma, or diffuse/infiltrative neoplasm. 6. Filling defects in the posterior bladder may represent blood clots. Mass is less likely. 7. Enlarged prostate. 8. Infrarenal AAA measuring up to 5.2 cm in diameter, with post surgical changes of stenting. Mild nonspecific fat stranding around the aneurysm may be due to mechanical pressure on the surrounding soft tissues or inflammation/infection. 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 There is a metallic device in the distal left common iliac artery. The left external iliac artery remains occluded, as before. 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 9. Cholelithiasis. 10. Subcentimeter hypodensity in the liver is nonspecific, possibly a cyst. Dictation location: Location 4 Narrative 04/06/2025 7:[address] UROGRAPHY DATE: 04/06/2025 7:06 PM CLINICAL INDICATION: Hematuria, gross/macroscopic. TECHNIQUE: Precontrast, postcontrast nephrographic phase, and postcontrast eight minute delayed phase scans of the abdomen and pelvis. Multiplanar reformatted images were reviewed. The examination was performed with the adjustment of mA according to the patient size and/or the use of iterative reconstruction technique. IV contrast: IOPAMIDOL 61 % INTRAVENOUS SOLUTION (MULTI-DOSE BULK PACK) Given:100 mL COMPARISON: April 03, 2025 FINDINGS: Severe emphysematous changes in the lung bases. In the right lower lobe, there is a partially visualized rounded confluent density measuring 2.4 x 2.1 cm, which is similar to the prior exam, one measuring in an identical fashion, with several adjacent scattered satellite nodules. On the precontrast scan, there is some residual contrast in the kidneys from a previous study, which limits evaluation for enhancement and kidney stones. Bilateral simple appearing, Bosniak class I renal cysts. No obvious enhancing kidney mass is identified. No hydroureter or hydronephrosis. No obvious ureteral mass. Linder catheter in the bladder. Irregularity of the wall of the bladder. Elongated filling defect in the posterior bladder. Enlarged prostate. Infrarenal AAA measuring about 5 x 5.2 cm, with postsurgical changes of stenting. There is mild fat stranding around the aneurysm. The stent extends into the right common iliac artery. No obvious endoleak. 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 There is a metallic device in the distal left common iliac artery. The left external iliac artery remains occluded, as before. 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 There are foci of air in the soft tissues around the graft which may be postsurgical in nature. 6.5 mm stone in the gallbladder. No evidence of acute cholecystitis. 4 mm hypodensity in the dome of the liver. The spleen, adrenal glands, pancreas, and stomach are unremarkable. Duodenal diverticulum. Mild sigmoid colon diverticula without adjacent fat stranding. The appendix is unremarkable. Bone density appears diffusely low, suggestive of osteopenia or osteoporosis. Procedure Note Will Mendoza MD - 04/06/2025 CT UROGRAPHY DATE: 04/06/2025 7:06 PM CLINICAL INDICATION: Hematuria, gross/macroscopic. TECHNIQUE: Precontrast, postcontrast nephrographic phase, and postcontrast eight minute delayed phase scans of the abdomen and pelvis. Multiplanar reformatted images were reviewed. The examination was performed with the adjustment of mA according to the patient size and/or the use of iterative reconstruction technique. IV contrast: IOPAMIDOL 61 % INTRAVENOUS SOLUTION (MULTI-DOSE BULK PACK) Given:100 mL COMPARISON: April 03, 2025 FINDINGS: Severe emphysematous changes in the lung bases. In the right lower lobe, there is a partially visualized rounded confluent density measuring 2.4 x 2.1 cm, which is similar to the prior exam, one measuring in an identical fashion, with several adjacent scattered satellite nodules. On the precontrast scan, there is some residual contrast in the kidneys from a previous study, which limits evaluation for enhancement and kidney stones. Bilateral simple appearing, Bosniak class I renal cysts. No obvious enhancing kidney mass is identified. No hydroureter or hydronephrosis. No obvious ureteral mass. Linder catheter in the bladder. Irregularity of the wall of the bladder. Elongated filling defect in the posterior bladder. Enlarged prostate. Infrarenal AAA measuring about 5 x 5.2 cm, with postsurgical changes of stenting. There is mild fat stranding around the aneurysm. The stent extends into the right common iliac artery. No obvious endoleak. 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 There is a metallic device in the distal left common iliac artery. The left external iliac artery remains occluded, as before. 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 There are foci of air in the soft tissues around the graft which may be postsurgical in nature. 6.5 mm stone in the gallbladder. No evidence of acute cholecystitis. 4 mm hypodensity in the dome of the liver. The spleen, adrenal glands, pancreas, and stomach are unremarkable. Duodenal diverticulum. Mild sigmoid colon diverticula without adjacent fat stranding. The appendix is unremarkable. Bone density appears diffusely low, suggestive of osteopenia or osteoporosis. IMPRESSION: 1. Right lung base mass and surrounding satellite nodules. Neoplasm is not excluded. 2. Severe emphysematous changes in the lung bases. 3. Retained IV contrast in the kidneys from previous procedure limits evaluation for stone. 4. No enhancing kidney mass is identified. 5. Irregular appearing bladder wall which may be due to chronic distention, diverticula, cystitis, trauma, or diffuse/infiltrative neoplasm. 6. Filling defects in the posterior bladder may represent blood clots. Mass is less likely. 7. Enlarged prostate. 8. Infrarenal AAA measuring up to 5.2 cm in diameter, with post surgical changes of stenting. Mild nonspecific fat stranding around the aneurysm may be due to mechanical pressure on the surrounding soft tissues or inflammation/infection. 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 There is a metallic device in the distal left common iliac artery. The left external iliac artery remains occluded, as before. 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 9. Cholelithiasis. 10. Subcentimeter hypodensity in the liver is nonspecific, possibly a cyst. Dictation location: Location [address] aGrcia PA-C CT ORDERABLES Final Result * URINE CULTURE (04/06/2025 10:58 AM CDT) CULTURE No growth at 24 hours 04/07/2025 11:27 AM CDT [facility] [employer] [facility] Urine (Urine, straight in/out catheter) Collection / Unknown 04/06/2025 10:58 AM CDT 04/06/2025 12:07 PM CDT Cordelia Garcia PA-C MICROBIOLOGY - GENERAL ORDERABLES Final Result [facility] LABORATORY SERVICES [facility]# [id number] [address] [place] [address] * EKG 12-LEAD (04/06/2025 9:13 AM CDT) 04/06/2025 9:13 AM CDT Narrative INTERFACE SYSTEM - 04/06/2025 2:[address] [facility] [address] [place] [address] Test Date: 2025-04-06 Pat Name: [facility] Department: 100 Room: [facility] 1 Gender: Male Supply Officer: Conta1 : 1935 Requested By: ALAN Hayden Order Number: [id number] Reading MD: Jez Abraham Measurements Intervals [place] Rate: 105 P: 0 OR: 0 QRS: 68 QRSD: 99 T: 120 QT: 277 QTc: 367 Interpretive Statements ATRIAL FIBRILLATION WITH RAPID VENTRICULAR RESPONSE WITH ABERRANT CONDUCTION OR VENTRICULAR PREMATURE COMPLEXES NONSPECIFIC T-WAVE ABNORMALITY ABNORMAL RHYTHM ECG Electronically Signed On 04-06-2025 14:45:18 CDT by Jez Abraham Procedure Note Jez Abraham MD - 04/06/[address] [facility] [address] [place] [address] Test Date: 2025-04-06 Pat Name: [facility] Department: 100 Room: [facility] 1 Gender: Male Supply Officer: Conta1 : 1935 Requested By: ALAN Hayden Order Number: [id number] Reading : Jez Abraham Measurements Intervals [place] Rate: 105 P: 0 OR: 0 QRS: 68 QRSD: 99 T: 120 QT: 277 QTc: 367 Interpretive Statements ATRIAL FIBRILLATION WITH RAPID VENTRICULAR RESPONSE WITH ABERRANTCONDUCTION OR VENTRICULAR PREMATURE COMPLEXES NONSPECIFIC T-WAVE ABNORMALITY ABNORMAL RHYTHM ECG Electronically Signed On 04-06-2025 14:45:18 CDT by Jez Abraham Aleja Frank DO ECG ORDERABLES Final Result INTERFACE SYSTEM Refer to clinic/hospital department * XR CHEST PA OR AP 1 VW (04/05/2025 5:53 PM CDT) Only the most recent of2 resultswithin the time period is included. Anatomical Region Laterality Modality Chest Computed Radiogr aphy 04/05/2025 5:54 PM CDT Impressions 04/05/2025 7:53 PM CDT IMPRESSION: New right-sided catheter with the tip projecting over the superior vena cava. No pneumothorax. DICTATION LOCATION: 4 Narrative 04/05/2025 7:53 PM CDT EXAMINATION: XR CHEST PA OR AP 1 VW DATE: 04/05/2025 5:53 PM HISTORY: Line Placement FINDINGS: Comparison is made to a radiograph from 04/04/2025. There is a new right-sided catheter with the tip projecting over the superior vena cava. 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 There is no pleural effusion or pneumothorax. Cardiomediastinal silhouette is stable. Procedure Note Jhony Luna MD - 04/05/2025 EXAMINATION: XR CHEST PA OR AP 1 VW DATE: 04/05/2025 5:53 PM HISTORY: Line Placement FINDINGS: Comparison is made to a radiograph from 04/04/2025. There is a new right-sided catheter with the tip projecting over the superior vena cava. 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 There is no pleural effusion or pneumothorax. Cardiomediastinal silhouette is stable. IMPRESSION: New right-sided catheter with the tip projecting over the superior vena cava. No pneumothorax. DICTATION LOCATION: 4 Cornell Monsalve MD DIAGNOSTIC IMAGING ORDERABLES Fi nal Result * POC LACTIC ACID (04/05/2025 3:48 PM CDT) LACTIC ACID POC 0.4 <=2.0 mmol/L 04/05/2025 3:48 PM CDT [facility] LABORATORY [facility] SPECIMEN SOURCE, GASES POC Arterial 04/05/2025 3:48 PM CDT [facility] LABORATORY [facility] COMMENT, GASES POC Responsible Clinical Caregiver notified 04/05/2025 3:48 PM CDT [facility] [employer] [facility] Blood 04/05/2025 3:48 PM CDT 04/05/2025 3:49 PM CDT Alan Griffin MD POINT OF CARE TESTING Final Res ult Performing Organization Address [facility] Co de Phone Number [facility] CLIA# [id number] [address] [place] [address] * (ABNORMAL) POC ACTIVATED CLOTTING TIME (04/05/2025 3:48 PM CDT) Only the most recent of2 resultswithin the time period is included. ACTIVATED CLOTTING TIME POC 222(H) 74 - 137 sec 04/05/2025 3:48 PM CDT [facility] [employer] [facility] Comment:ACT testing performe d on ISTAT ACT-Kaolin cartridge. Blood 04/05/2025 3:48 PM CDT 04/05/2025 3:51 PM CDT Alan Griffin MD POINT OF CARE TESTING Final Res ult Performing Organization Address [facility] Co de Phone Number [facility] [employer] [facility] CLIA# [id number] [address] [place] [address] * (ABNORMAL) BLOOD GAS,(INCL. H+H, LYTES, GLUC) (04/05/2025 3:48 PM CDT) PH BLOOD POC 7.30(L) 7.35 - 7.45 04/05/2025 3:48 PM CDT [facility] LABORATORY [facility] PCO2 POC 55(H) 35 - 48 mm Hg 04/05/2025 3:[address] [facility] PO2 POC 181(H) 83 - 108 mm Hg 04/05/2025 3:48 PM CDT [facility] LABORATORY [facility] TCO2 (CALC) POC 29(H) 19 - 24 mmol/L 04/05/2025 3:48 PM [facility] [employer] LABORATORY SERVICES [facility] HCO3 (CALC) POC 27(H) 22 - 26 mmol/L 04/05/2025 3:48 PM [facility] [employer] LABORATORY [facility] O2 SATURATION POC 99(H) 94 - 98 % 04/05/2025 3:48 PM [facility] [employer] LABORATORY [facility] BASE EXCESS POC 0 -2 - 3 mmol/L 04/05/2025 3:48 PM [facility] LABORATORY [facility] HEMOGLOBIN POC 9.2(L) 13.6 - 16.5 g/dL 04/05/2025 3:48 PM [facility] [employer] LABORATORY SERVICES [facility] HEMATOCRIT POC 28(L) 40 - 48 % 04/05/2025 3:48 PM [facility]ORATORY SERVICES [facility] Comment:Estimated Value GLUCOSE POC 98 74 - 99 mg/dL 04/05/2025 3:48 PM [facility] LABORAT[facility] SODIUM POC 135(L) 136 - 145 mmol/L 04/05/2025 3:48 PM [facility] [employer] LABORATORY [facility] POTASSIUM POC 3.8 3.5 - 5.0 mmol/L 04/05/2025 3:48 PM [facility] [employer] LABORATORY [facility] CHLORIDE POC 105 98 - 107 mmol/L 04/05/2025 3:48 PM [facility] [employer] LABORATORY [facility] CALCIUM IONIZED POC 5.2(H) 4.7 - 5.1 mg/dL 04/05/2025 3:48 PM [facility] [employer] LABORATORY [facility] PH TEMP CORRECT 7.30(L) 7.35 - 7.45 04/05/2025 3:48 PM [facility] [employer] LABORATORY [facility] PCO2 TEMP CORRECT 55(H) 35 - 48 mm Hg 04/05/2025 3:48 PM [facility] [employer] LABORATORY [facility] PO2 TEMP CORRECT 181(H) 83 - 108 mm Hg 04/05/2025 3:48 PM [facility] [employer] LABORATORY [facility] SPECIMEN SOURCE, GASES POC Arterial 04/05/2025 3:48 PM [facility] [employer] LABORATORY [facility] PATIENT'S TEMPERATURE POC 37.0 degrees 04/05/2025 3:48 PM CDT [facility] LABORATORY SERVICES - [facility] COMMENT, GASES POC Responsible Clinical Caregiver notified 04/05/2025 3:48 PM CDT [facility] LABORATORY SERVICES - [facility] Blood, arterial 04/05/2025 3 :48 PM CDT 04/05/2025 3:49 PM CDT Alan Griffin MD ABG ORDERABLES Final Result [facility] CLIA# [id number] [address] [place] [address] * (ABNORMAL) OXIMETRY (04/05/2025 3:48 PM CDT) Pathologist [facility] OXYHEMOGLOBIN POC 96.3 94.0 - 97.0 % 04/05/2025 3:48 PM CDT [facility] LABORATORY SERVICES [facility] HEMOGLOBIN POC 9.2(L) 13.6 - 16.5 g/dL 04/05/2025 3:48 PM CDT [employer] LABORATORY SERVICES [facility] O2 SATURATION POC 99(H) 94 - 98 % 04/05/2025 3:48 PM CDT [facility] LABORATORY SERVICES - [facility] SPECIMEN SOURCE, GASES POC Arterial 04/05/2025 3:48 PM CDT [employer] LABORATORY SERVICES - [facility] SAMPLE SITE, GASES POC N-SY 04/05/2025 3:48 PM CDT [employer] LABORATORY SERVICES - [facility] COMMENT, GASES POC Responsible Clinical Caregiver notified 04/05/2025 3:[address] [facility] - [facility] Blood 04/05/2025 3:48 PM CDT 04/05/2025 3:49 PM CDT Alan Griffin MD ABG ORDERABLES Final Result Performing Organization Address City/[facility]/ZIP Co de Phone Number [facility] [employer] [facility] CLIA# [id number] [address] [place] [address] * (ABNORMAL) METHEMOGLOBIN QUANTITATIVE (04/05/2025 3:48 PM CDT) METHEMOGLOBIN QUANT POC 1.3 <1.5 % 04/05/2025 3:48 PM CDT [facility] LABORATORY [facility] HEMOGLOBIN POC 9.2(L) 13.6 - 16.5 g/dL 04/05/2025 3:48 PM CDT [facility] LABORATORY [facility] COMMENT, GASES POC Responsible Clinical Caregiver notified 04/05/2025 3:48 PM CDT [facility] LABORATORY [facility] Blood 04/05/2025 3:48 PM CDT 04/05/2025 3:49 PM CDT Alan Griffin MD ABG ORDERABLES Final Result Performing Organization Address [facility] Co de Phone Number [facility] CLIA# [id number] [address] [place], [place] [address] * (ABNORMAL) CARBOXYHEMOGLOBIN (04/05/2025 3:48 PM CDT) CARBOXYHEMOGLOBIN POC 1.4 <=7.0 % 04/05/2025 3:48 PM CDT [facility] LABORATORY [facility] Comment: Reference Range: Non-Smokers: 0-2% Smokers: < or = 9% Toxic: > 15% HEMOGLOBIN POC 9.2(L) 13.6 - 16.5 g/dL 04/05/2025 3:48 PM CDT [facility] LABORATORY [facility] COMMENT, GASES POC Responsible Clinical Caregiver notified 04/05/2025 3:48 PM CDT [facility] Blood 04/05/2025 3:48 PM CDT 04/05/2025 3:49 PM CDT Alan Griffin MD ABG ORDERABLES Final Result Performing Organization Address [facility]/ZIP Co de Phone Number [facility] CLIA# [id number] [address] [place] [address] * OR ANES INSERT TUNNELED CV CATH W/O PORT OR PUMP, CENTRAL LINE ADULT QUAD LUMEN (04/05/2025 2:53 PMCDT) Garrick Triplett AA-C - 04/05/2025 2:53 PM CDT Garrick Brizuela AA-C 04/05/2025 2:53 PM Central Line Insertion Start Time: 04/05/2025 2:40 PM End Time: 04/05/2025 2:45 PM Patient location during procedure: OR Staffing Performed: FAMILY NURSE PRACTITIONER/CAA Authorized by: Cory Freeman MD Performed by: Garrick Brizuela AA-C Indications: central pressure monitoring, IV medication, vascular access and vasoactive infusions Procedure details: Sterile techniques used: hand hygiene performed prior to central venous catheter insertion, antiseptic used, cap, gloves, gown, mask, sterile sheet and eye protection Preparation: Skin prepped with ChloraPrep Skin prep agent dried: skin prep agent completely dried prior to procedure time out called Patient position: Trendelenburg Location Side: Right Location: Internal jugular vein Catheter type: Quad lumen Catheter size: 8.5 Fr Neibert Identification: ultrasound guided Sterile gel used in ultrasound-guided central venous catheter insertion Sterile probe cover used in ultrasound-guided central venous catheter insertion Number of attempts: 1 Successful placement: yes Techniques to confirm venous canulation: non-pulsatile flow, ultrasound, color of blood consistent with venous placement and transduced waveform x-ray will be performed Guidewire removed Complications: none Breath sounds/airway entry unchanged Procedure uneventful Post-procedure: line sutured, dressing applied, antibiotic disc placed and line secured Cory Freeman MD PROCEDURE/MINOR SURGICAL ORDE SAMMY Final Result * OR ANES INSERT CATH, ART, PERCUT, SHORTTERM (04/05/2025 2:51 PM CDT) Garrick Triplett AA-C - 04/05/2025 2:51 PM CDT Garrick Brizuela AA-C 04/05/2025 2:52 PM Arterial Line Insertion Start Time: 04/05/2025 2:22 PM End Time: 04/05/2025 2:25 PM Patient location during procedure: Pre-op Staffing Authorized by: Cory Freeman MD Performed by: Garrick Brizuela AA-C Patient was prepped and draped in usual sterile fashion Indications: multiple ABGs and hemodynamic monitoring Local Anesthetic: lidocaine 2% without epinephrine Anesthetic total: 1 mL Hand hygiene performed prior to procedure Sterile Barriers: gloves, cap, mask and sterile towels Preparation: skin prepped with 2% chlorhexidine Skin prep agent dried: skin prep agent completely dried prior to procedure Patient position: flat Location: right brachial Catheter type: radial kit Catheter size: 20 G Arterial line catheter length (in): 12cm. Neibert Identification: palpation technique Number of attempts: 1 Successful placement: yes Assessment: blood return through port Procedure uneventful Post-procedure: dressing applied and line secured Comments: Secured with CHG dressing Cory Freeman MD PROCEDURE/MINOR SURGICAL ORDE RABADAN Final Result * OR ANES INSERT ENDOTRACHEAL AIRWAY (04/05/2025 2:32 PM CDT) Narrative Garrick Brizuela AA-C - 04/05/2025 2:32 PM CDT Garrick Brizuela AA-C 04/05/2025 3:45 PM Airway Date/Time: 04/05/2025 2:32 PM Location: OR Plan: routine intubation Patient Identity Confirmed by: Verbally with patient and armband Airway: not difficult Staffing Performed: AA Authorized by: Cory Freeman MD Performed by: Garrick Brizuela AA-C Indications and Patient Condition: Indications for Airway Management: Anesthesia Sedation Level: general anesthesia Patient Position: Sniffing Mask Difficulty Assessment: 1 - vent by mask Plan to extubate at end of case: Yes Final Airway Details: Final Airway Type: Endotracheal airway ETT Cuffed: Yes Cuff Volume (mL): 5 Technique Used for Successful ETT Placement: Direct laryngoscopy Devices/Methods Used in Placement: Straight blade and intubating stylet Blade Type: straight blade Blade Size: 2 Insertion Site: Oral ETT Size (mm): 8.0 Measured from: Teeth ETT to Teeth (cm): 23 Tube secured with: Tape and ETT herrera Placement Verified by: auscultation, end tidal CO2 and chest rise Cormack-Lehane Classification: Grade I - full view of glottis Number of Attempts at Approach: 1 Additional Procedure Information: atraumatic and dentition unchanged Cory Freeman MD PROCEDURE/MINOR SURGICAL ORDE SAMMY Final Result * ECHOCARDIOGRAM W/ CONTRAST AGENT (04/05/2025 7:33 AM CDT) EJECTION FRACTION 60 INTERFACE SYSTEM 04/05/2025 6:45 AM CDT Narrative INTERFACE SYSTEM - 04/05/2025 9:51 AM CDT [address] [address] [email or web address] Patient: Shorty Sheldon Study ID: ECHO COMPLETE - Gender: M : 1935 Age: 89 Race: [facility] Height 170.2cm Study Date: 04/05/2025 Weight: 45.9kg Access. #: [id number] BP: *Referring Physician:* Sofy Tripp Emily *Ordering Physician:* Sofy Tripp production superintendent: Nurse: STUDY CONCLUSIONS: SUMMARY: - Left ventricle: The cavity size was normal. Wall thickness was normal. Global systolic function is normal. The estimated ejection fraction is 55-60%. For Epic reporting: the left ventricular ejection fraction is 60% . Diastolic function assessment consistent with abnormal left ventricular relaxation (grade 1 diastolic dysfunction). - Aortic valve: Mild regurgitation. - Left atrium: The atrium is normal in size. - Right ventricle: The cavity size is normal. Systolic function is normal. - Tricuspid valve: Mild regurgitation. - Pulmonary arteries: The peak systolic pressure is 35mm Hg. Cardiac Anatomy: LEFT VENTRICLE: The cavity size was normal. Wall thickness was normal. Global systolic function is normal. The estimated ejection fraction is 55-60%. For Epic reporting: the left ventricular ejection fraction is 60% . Diastolic function assessment consistent with abnormal left ventricular relaxation (grade 1 diastolic dysfunction). AORTIC VALVE: Structurally normal valve. Trileaflet. Mild regurgitation. The mean systolic gradient is 2mm Hg. The peak systolic gradient is 4mm Hg. The LVOT to aortic valve VTI ratio is 0.65. The valve area is 2.0cm^2. The ratio of LVOT to aortic valve peak velocity is 0.72. AORTA: Aortic root: The root is normal-sized. MITRAL VALVE: Structurally normal valve. No significant regurgitation. The mean diastolic gradient is 1mm Hg. The peak diastolic gradient is 3mm Hg. LEFT ATRIUM: The atrium is normal in size. RIGHT VENTRICLE: The cavity size is normal. Systolic function is normal. PULMONIC VALVE: Structurally normal valve. No significant regurgitation. TRICUSPID VALVE: Structurally normal valve. Mild regurgitation. RIGHT ATRIUM: The atrium was normal in size. SYSTEMIC VEINS: Inferior vena cava: The IVC is normal-sized. PERICARDIUM: There is no pericardial effusion. Measurements Left ventricle Value Ref IVS, ED, LAX (N) 0.9 cm 0.6 - 1.0 GINA, LAX (L) 3.2 cm 4.2 - 5.8 GINA/bsa, LAX (L) 2.1 cm/m^2 2.2 - 3.0 GINA, LAX chord (L) 3.8 cm 4.2 - 5.8 ESD, LAX chord (N) 3.2 cm 2.5 - 4.0 GINA/bsa, LAX chord (N) 2.5 cm/m^2 2.2 - 3.0 ESD/bsa, LAX chord (N) 2.1 cm/m^2 1.3 - 2.1 FS, LAX chord (L) 15 % 25 - 43 IVS, ED (N) 0.9 cm 0.6 - 1.0 PW, ED (N) 0.8 cm 0.6 - 1.0 EDV, 2-p (N) 108 ml 62 - 150 ESV, 2-p (N) 44 ml 21 - 61 EF, 2-p (N) 60 % 52 - 72 SV, 2-p 64 ml --------- SV/bsa, 2-p 42.6 ml/m^2 --------- E', lat johan, TDI (N) 12.3 cm/sec >=10.0 E/e', lat johan, TDI (N) 5 <=13 E', med johan, TDI (N) 7.6 cm/sec >=7.0 E/e', med johan, TDI 8 --------- E', avg, TDI 10.0 cm/sec --------- E/e', avg, TDI (N) 6 <=14 LVOT Value Ref Diam, S 2.0 cm --------- Area 3.1 cm^2 --------- Peak sil, S 0.69 m/sec --------- VTI, S 13.0 cm --------- Right ventricle Value Ref GINA minor ax, A4C base (N) 3.0 cm 2.5 - 4.1 GINA minor ax, A4C mid (N) 2.4 cm 1.9 - 3.5 TAPSE, MM (N) 1.7 cm >=1.7 Pressure, S 33 mm Hg --------- S' lateral (N) 12.1 cm/sec >=9.5 Left atrium Value Ref AP dim, ES (L) 2.9 cm 3.0 - 4.0 AP dim index, ES (N) 1.9 cm/m^2 1.5 - 2.3 SI dim, A4C 5.0 cm --------- Area ES, A4C (N) 13 cm^2 <=20 Area/bsa ES, A4C 8.41 cm^2/m^2 --------- SI dim, A2C 4.1 cm --------- SI dim, shorter 4.1 cm --------- Vol, ES, 1-p A2C (N) 31 ml 18 - 58 Vol/bsa, ES, 1-p A2C (N) 21 ml/m^2 11 - 43 Vol, ES, 2-p 32 ml --------- Vol/bsa, ES, 2-p (N) 21 ml/m^2 16 - 34 LA/Ao root ratio 0.78 --------- Right atrium Value Ref SI dim, ES, A4C (L) 2.9 cm 3.4 - 5.3 SI dim/bsa, ES, A4C (N) 1.9 cm/m^2 1.8 - 3.0 Area, ES, A4C (L) 8 cm^2 10 - 18 Vol, ES, 1-p A4C 20 ml --------- Vol/bsa, ES, 1-p A4C (N) 13 ml/m^2 11 - 39 Aortic valve Value Ref Peak v, S 0.9 m/sec --------- Mean v, S 0.64 m/sec --------- VTI, S 20.1 cm --------- Mean grad, S 2 mm Hg --------- Peak grad, S 4 mm Hg --------- LVOT/AV, VTI ratio 0.65 --------- DACIA, VTI 2.0 cm^2 --------- DACIA/bsa, VTI 1.34 cm^2/m^2 --------- LVOT/AV, Vpeak ratio 0.72 --------- DACIA, Vmax 2.3 cm^2 --------- DACIA/bsa, Vmax 1.49 cm^2/m^2 --------- Mitral valve Value Ref Mean v, D 0.47 m/sec --------- Peak E 0.64 m/sec --------- Peak A 0.8 m/sec --------- Decel time 147 ms --------- PHT 43 ms --------- Mean grad, D 1 mm Hg --------- Peak grad, D 3 mm Hg --------- Peak E/A ratio 0.8 --------- A-VTI 23.3 cm --------- MVA, PHT 5.1 cm^2 --------- MVA/bsa, PHT 3.39 cm^2/m^2 --------- Pulmonic valve Value Ref Peak v, S 0.76 m/sec --------- Peak grad, S 2 mm Hg --------- Tricuspid valve Value Ref TR peak v (N) 2.6 m/sec <=2.8 Peak RV-RA grad, S 28 mm Hg --------- Aortic root Value Ref Root diam, 3.7 cm --------- Pulmonary artery Value Ref Pressure, S 35 mm Hg --------- Systemic veins Value Ref Estimated RA pressure 5 mm Hg --------- Legend: (L) and (H) colt values outside specified reference range. (N) connolly values inside specified reference range. Procedure data: Procedure information: A transthoracic echocardiogram was performed. Scanning was performed from the parasternal, apical, and subcostal acoustic windows. Intravenous contrast (Definity) was administered. Transthoracic echocardiogram. Complete 2D, complete spectral Doppler, and color Doppler. Birthdate: Patient birthdate: 1935. Age: Patient is 89year(s) old. Sex: gender: male. Height: 170.2cm. 67in. Weight: 45.9kg. 101.2lb. Body mass index: 15.8kg/m^2. Body surface area: 1.51m^2. Study date: Study date: 04/05/2025. Study time: 06:45 AM. Prepared and Electronically Authenticated Colt Hwang [id number] Procedure Note Colt Hwang MD - 04/05/2025 [place] [address] [email or web address] Transthoracic Echocardiogram Patient: Shorty Sheldon Study ID: ECHO COMPLETE - Gender: M : 1935 Age: 89 Race: CAU Height 170.2cm Study Date: 04/05/2025 Weight: 45.9kg Access. #: [id number] BP: *Referring Physician:* Sofy Tripp Emily *Ordering Physician:* Sofy Tripp production superintendent: Nurse: STUDY CONCLUSIONS: SUMMARY: - Left ventricle: The cavity size was normal. Wall thickness was normal. Global systolic function is normal. The estimated ejection fraction is 55-60%. For Epic reporting: the left ventricular ejection fraction is60% . Diastolic function assessment consistent with abnormal leftventricular relaxation (grade 1 diastolic dysfunction). - Aortic valve: Mild regurgitation. - Left atrium: The atrium is normal in size. - Right ventricle: The cavity size is normal. Systolic function isnormal. - Tricuspid valve: Mild regurgitation. - Pulmonary arteries: The peak systolic pressure is 35mm Hg. Cardiac Anatomy: LEFT VENTRICLE: The cavity size was normal. Wall thickness was normal.Global systolic function is normal. The estimated ejection fraction is 55-60%.For Epic reporting: the left ventricular ejection fraction is 60% .Diastolic function assessment consistent with abnormal left ventricular relaxation (grade 1 diastolic dysfunction). AORTIC VALVE: Structurally normal valve. Trileaflet. Mildregurgitation. The mean systolic gradient is 2mm Hg. The peak systolic gradient is 4mmHg. The LVOT to aortic valve VTI ratio is 0.65. The valve area is 2.0cm^2.The ratio of LVOT to aortic valve peak velocity is 0.72. AORTA: Aortic root: The root is normal-sized. MITRAL VALVE: Structurally normal valve. No significantregurgitation. The mean diastolic gradient is 1mm Hg. The peak diastolic gradient is 3mmHg. LEFT ATRIUM: The atrium is normal in size. RIGHT VENTRICLE: The cavity size is normal. Systolic function isnormal. PULMONIC VALVE: Structurally normal valve. No significantregurgitation. TRICUSPID VALVE: Structurally normal valve. Mild regurgitation. RIGHT ATRIUM: The atrium was normal in size. SYSTEMIC VEINS: Inferior vena cava: The IVC is normal-sized. PERICARDIUM: There is no pericardial effusion. Measurements Left ventricle Value Ref IVS, ED, LAX (N) 0.9 cm 0.6 - 1.0 GINA, LAX (L) 3.2 cm 4.2 - 5.8 GINA/bsa, LAX (L) 2.1 cm/m^2 2.2 - 3.0 GINA, LAX chord (L) 3.8 cm 4.2 - 5.8 ESD, LAX chord (N) 3.2 cm 2.5 - 4.0 GINA/bsa, LAX chord (N) 2.5 cm/m^2 2.2 - 3.0 ESD/bsa, LAX chord (N) 2.1 cm/m^2 1.3 - 2.1 FS, LAX chord (L) 15 % 25 - 43 IVS, ED (N) 0.9 cm 0.6 - 1.0 PW, ED (N) 0.8 cm 0.6 - 1.0 EDV, 2-p (N) 108 ml 62 - 150 ESV, 2-p (N) 44 ml 21 - 61 EF, 2-p (N) 60 % 52 - 72 SV, 2-p 64 ml --------- SV/bsa, 2-p 42.6 ml/m^2 --------- E', lat johan, TDI (N) 12.3 cm/sec >=10.0 E/e', lat johan, TDI (N) 5 <=13 E', med johan, TDI (N) 7.6 cm/sec >=7.0 E/e', med johan, TDI 8 --------- E', avg, TDI 10.0 cm/sec --------- E/e', avg, TDI (N) 6 <=14 LVOT Value Ref Diam, S 2.0 cm --------- Area 3.1 cm^2 --------- Peak sil, S 0.69 m/sec --------- VTI, S 13.0 cm --------- Right ventricle Value Ref GINA minor ax, A4C base (N) 3.0 cm 2.5 - 4.1 GINA minor ax, A4C mid (N) 2.4 cm 1.9 - 3.5 TAPSE, MM (N) 1.7 cm >=1.7 Pressure, S 33 mm Hg --------- S' lateral (N) 12.1 cm/sec >=9.5 Left atrium Value Ref AP dim, ES (L) 2.9 cm 3.0 - 4.0 AP dim index, ES (N) 1.9 cm/m^2 1.5 - 2.3 SI dim, A4C 5.0 cm --------- Area ES, A4C (N) 13 cm^2 <=20 Area/bsa ES, A4C 8.41 cm^2/m^2 --------- SI dim, A2C 4.1 cm --------- SI dim, shorter 4.1 cm --------- Vol, ES, 1-p A2C (N) 31 ml 18 - 58 Vol/bsa, ES, 1-p A2C (N) 21 ml/m^2 11 - 43 Vol, ES, 2-p 32 ml --------- Vol/bsa, ES, 2-p (N) 21 ml/m^2 16 - 34 LA/Ao root ratio 0.78 --------- Right atrium Value Ref SI dim, ES, A4C (L) 2.9 cm 3.4 - 5.3 SI dim/bsa, ES, A4C (N) 1.9 cm/m^2 1.8 - 3.0 Area, ES, A4C (L) 8 cm^2 10 - 18 Vol, ES, 1-p A4C 20 ml --------- Vol/bsa, ES, 1-p A4C (N) 13 ml/m^2 11 - 39 Aortic valve Value Ref Peak v, S 0.9 m/sec --------- Mean v, S 0.64 m/sec --------- VTI, S 20.1 cm --------- Mean grad, S 2 mm Hg --------- Peak grad, S 4 mm Hg --------- LVOT/AV, VTI ratio 0.65 --------- DACIA, VTI 2.0 cm^2 --------- DACIA/bsa, VTI 1.34 cm^2/m^2 --------- LVOT/AV, Vpeak ratio 0.72 --------- DACIA, Vmax 2.3 cm^2 --------- DACIA/bsa, Vmax 1.49 cm^2/m^2 --------- Mitral valve Value Ref Mean v, D 0.47 m/sec --------- Peak E 0.64 m/sec --------- Peak A 0.8 m/sec --------- Decel time 147 ms --------- PHT 43 ms --------- Mean grad, D 1 mm Hg --------- Peak grad, D 3 mm Hg --------- Peak E/A ratio 0.8 --------- A-VTI 23.3 cm --------- MVA, PHT 5.1 cm^2 --------- MVA/bsa, PHT 3.39 cm^2/m^2 --------- Pulmonic valve Value Ref Peak v, S 0.76 m/sec --------- Peak grad, S 2 mm Hg --------- Tricuspid valve Value Ref TR peak v (N) 2.6 m/sec <=2.8 Peak RV-RA grad, S 28 mm Hg --------- Aortic root Value Ref Root diam, 3.7 cm --------- Pulmonary artery Value Ref Pressure, S 35 mm Hg --------- Systemic veins Value Ref Estimated RA pressure 5 mm Hg --------- Legend: (L) and (H) colt values outside specified reference range. (N) connolly values inside specified reference range. Procedure data: Procedure information: A transthoracic echocardiogram was performed.Scanning was performed from the parasternal, apical, and subcostal acousticwindows. Intravenous contrast (Definity) was administered. Transthoracic echocardiogram. Complete 2D, complete spectral Doppler, and colorDoppler. Birthdate: Patient birthdate: 1935. Age: Patient is 89year(s)old. Sex: gender: male. Height: 170.2cm. 67in. Weight: 45.9kg.101.2lb. Body mass index: 15.8kg/m^2. Body surface area: 1.51m^2. Studydate: Study date: 04/05/2025. Study time: 06:45 AM. Prepared andElectronically Authenticated Colt Hwang [id number] Sofy Tripp NP US ORDERABLES Final Re sult INTERFACE SYSTEM Refer to clinic/hospital department * (ABNORMAL) CBC WITH DIFFERENTIAL (04/05/2025 1:15 AM CDT) Only the most recent of2 resultswithin the time period is included. WBC 5.2 4.0 - 9.8 K/uL 04/05/2025 1:35 AM CDT [facility] LABORATORY [facility] RBC 3.26(L) 4.50 - 5.40 M/uL 04/05/2025 1:35 AM CDT [facility] LABORATORY SERVICES - [facility] HEMOGLOBIN 9.1(L) 13.6 - 16.5 g/dL 04/05/2025 1:35 AM CDT [employer] LABORATORY SERVICES - [facility] HEMATOCRIT 29.2(L) 40.0 - 48.0 % 04/05/2025 1:35 AM CDT [facility] LABORATORY SERVICES - . [facility] MCV 89.6 82.0 - 99.0 fL 04/05/2025 1:35 AM CDT [facility] LABORATORY SERVICES - . [facility] MCH 27.9 27.2 - 32.6 pg 04/05/2025 1:35 AM CDT [facility] LABORATORY SERVICES - . [facility] MCHC 31.2(L) 31.5 - 35.5 g/dL 04/05/2025 1:35 AM CDT [facility] LABORATORY SERVICES - [facility] RDW 16.7(H) 11.5 - 14.5 % 04/05/2025 1:35 AM CDT [facility]ATORY SERVICES - [facility] RDW-STDEV 54.4(H) 37.1 - 48.7 fL 04/05/2025 1:35 AM CDT [facility] SERVICES - [facility] PLATELETS 160 140 - 350 K/uL 04/05/2025 1:35 AM CDT [facility] LABORATORY SERVICES - . [facility] MPV 10.5 9.3 - 12.4 fL 04/05/2025 1:35 AM CDT [facility] LABORATORY SERVICES - . [facility] NEUTROPHILS 64 % 04/05/2025 1:35 AM CDT [facility] LAB[facility]ORY SERVICES - . [facility] LYMPHOCYTES 20 % 04/05/2025 1:35 AM CDT [facility] LAB[facility]ATORY SERVICES - . [facility] MONOCYTES 11 % 04/05/2025 1:35 AM CDT [facility] SERVICES - [facility] EOSINOPHILS 3 % 04/05/2025 1:35 AM CDT [facility] LAB[facility] SERVICES - . [facility] BASOPHILS 1 % 04/05/2025 1:35 AM CDT [facility] LAB[facility]ORY SERVICES - . [facility] IMMATURE GRANULOCYTES 0 % 04/05/2025 1:35 AM CDT [facility] LABORATORY SERVICES - . [facility] NEUTROPHIL ABSOLUTE 3.32 1.90 - 7.00 K/uL 04/05/2025 1:35 AM CDT [facility] LABORATORY SERVICES - . [facility] LYMPHOCYTE ABSOLUTE 1.05 0.70 - 4.50 K/uL 04/05/2025 1:35 AM CDT [facility] LABORATORY [facility] - [facility] MONOCYTE ABSOLUTE 0.57 0.10 - 1.30 K/uL 04/05/2025 1:35 AM CDT [facility] LABORATORY [facility] - [facility] EOSINOPHIL ABSOLUTE 0.17 0.00 - 0.70 K/uL 04/05/2025 1:35 AM CDT [facility] LABORATORY [facility] - [facility] BASOPHILS ABSOLUTE 0.04 0.00 - 0.20 K/uL 04/05/2025 1:35 AM CDT [facility] LABORATORY [facility] - [facility] IMMATURE GRANULOCYTES ABSOLUTE 0.02 0.00 - 0.03 K/uL 04/05/2025 1:35 AM CDT [facility] Blood Venipuncture / Unknown 04/05/2025 1:15 AM CDT 04/05/2025 1:27 AM CDT Ted Tran MD HEMATOLOGY ORDERABLES Final Resu lt Performing Organization Address City/State/[facility] Co de Phone Number [facility] [id number] [address] [place] [address] * US ARTERIAL W SEGMENTAL PRESS LOWER EXT (04/04/2025 5:10 PM CDT) Anatomical Region Laterality Modality Lower Extremity Ultrasound 04/04/2025 3:56 PM CDT Narrative 04/05/2025 5:47 AM CDT [facility] [address] [place] [address] [email or web address] Ankle-Brachial Index Study Patient: Shorty Sheldon Study ID: 1 Gender: M : 1935 Age: 89 Race: CAU Height Study Date: 04/04/2025 Weight: Access. #: [id number] *Referring Physician:Hannah Mcguire Emily *Ordering Physician:Hannah McguireSlab Lifting Engineer:* Jennifer Melvin Indications: See worksheet. Study data: [facility] Study status: STAT. Procedure: A vascular evaluation was performed. Image quality was good. Multi-level lower extremity arterial segmental pressures and Doppler waveforms were performed. Ankle-brachial index. Continuous wave Doppler and ankle-brachial index. Birthdate: Patient birthdate: 1935. Age: Patient is 89year(s) old. Sex: gender: male. Study date: Study date: 04/04/2025. Study time: 03:56 PM. Location: Vascular laboratory. Patient status: Inpatient. Impressions 1. Mild arterial insufficiency involving the right lower extremity at rest. 2. Moderate arterial insufficiency involving the left lower extremity at rest. Tables: Ankle brachial indices: +----+----+------+-----+-----+----+--------+----+---+-------+----+-----+-----+ !R PT!R DP!R Toe !R PT !R DP !R !Brachial!L PT!L !L Toe !L PT!L DP !L Toe! ! ! ! !index!index!Toe ! ! !DP ! !inde!index!index! ! ! ! ! ! !inde! ! ! ! !x ! ! ! ! ! ! ! ! !x ! ! ! ! ! ! ! ! +----+----+------+-----+-----+----+--------+----+---+-------+----+-----+-----+ !94 !99 !90mm !0.67 !0.70 !0.64!141mm Hg!75 !78 !78mm Hg!0.53!0.55 !0.55 ! ! ! !Hg ! ! ! ! ! ! ! ! ! ! ! +----+----+------+-----+-----+----+--------+----+---+-------+----+-----+-----+ *Pressures are expressed in mm Hg Volume pulse table: + + + !Segment !Doppler ! + + + !R femoral !Multiphasic! + + + !R popliteal!Monophasic ! + + + !R PT !Monophasic ! + + + !R DP !Multiphasic! + + + !L femoral !Monophasic ! + + + !L popliteal!Monophasic ! + + + !L PT !Monophasic ! + + + !L DP !Monophasic ! + + + *Pressures are expressed in mm Hg Prepared and Electronically Authenticated Audi Gomez [id number] Procedure Note Audi Gomez MD - 04/05/2025 [place] [address] [place] [address] [email or web address] Ankle-Brachial Index Study Patient: Shorty Sheldon Study ID: 1 Gender: M :1935 Age: 89 Race: CAU Height Study Date:04/04/2025 Weight: Access. #:[id number] *Referring Physician:Hannah Mcguire Emily *Ordering Physician:Hannah McguireSlab Lifting Engineer:Jennifer Hansen Indications: See worksheet. Study data: [facility] Study status: STAT. Procedure: A vascularevaluation was performed. Image quality was good. Multi-level lower extremityarterial segmental pressures and Doppler waveforms were performed.Ankle-brachial index. Continuous wave Doppler and ankle-brachial index. Birthdate: Patient birthdate: 1935. Age: Patient is 89year(s) old. Sex: gender: male. Study date: Study date: 04/04/2025. Study time: 03:56PM. Location: Vascular laboratory. Patient status: Inpatient. Impressions 1. Mild arterial insufficiency involving the right lower extremity atrest. 2. Moderate arterial insufficiency involving the left lower extremity atrest. Tables: Ankle brachial indices: +----+----+------+-----+-----+----+--------+----+---+-------+----+-----+-----+ !R PT!R DP!R Toe !R PT !R DP !R !Brachial!L PT!L !L Toe !L PT!L DP !LToe! ! ! ! !index!index!Toe ! ! !DP !!inde!index!index! ! ! ! ! ! !inde! ! ! ! !x ! !! ! ! ! ! ! !x ! ! ! ! ! ! !! +----+----+------+-----+-----+----+--------+----+---+-------+----+-----+-----+ !94 !99 !90mm !0.67 !0.70 !0.64!141mm Hg!75 !78 !78mm Hg!0.53!0.55!0.55 ! ! ! !Hg ! ! ! ! ! ! ! ! ! !! +----+----+------+-----+-----+----+--------+----+---+-------+----+-----+-----+ *Pressures are expressed in mm Hg Volume pulse table: + + + !Segment !Doppler ! + + + !R femoral !Multiphasic! + + + !R popliteal!Monophasic ! + + + !R PT !Monophasic ! + + + !R DP !Multiphasic! + + + !L femoral !Monophasic ! + + + !L popliteal!Monophasic ! + + + !L PT !Monophasic ! + + + !L DP !Monophasic ! + + + *Pressures are expressed in mm Hg Prepared and Electronically Authenticated Audi Gomez [id number] us Hannah GRIGSBY US ORDERABLES Final Result * VERIFICATION BLOOD GROUP (04/04/2025 1:24 AM CDT) ABO GROUP O 04/04/2025 3:10 PM CDT [facility] [employer] SERVICES -- [facility] RH (D) TYPE Positive 04/04/2025 3:10 PM CDT [facility] LABORATORY SERVICES -- [facility] Blood Venipuncture / Unknown 04/04/2025 1:24 AM CDT 04/04/2025 2:05 PM CDT Lizette Erwin MD BLOOD BANK ORDERABLES Final Result [facility] LABORATORY [facility] -- [facility] CLIA# [id number] [address] [place] [address] * (ABNORMAL) IRON, TIBC, AND PERCENT SATURATION (04/04/2025 1:24 AM CDT) IRON 33(L) 59 - 158 ug/dL 04/04/2025 9:09 AM CDT [facility] LABORATORY SERVICES [facility] TIBC 211(L) 250 - 450 ug/dL 04/04/2025 9:09 AM CDT [facility] LABORATORY SERVICES [facility] IRON % SATURATION 16(L) 20 - 50 % 04/04/2025 9:09 AM T [facility] LABORATORY [facility] TRANSFERRIN 166(L) 200 - 360 mg/dL 04/04/2025 9:09 AM T [facility] LABORATORY SERVICES [facility] Blood Venipuncture / Unknown 04/04/2025 1:24 AM CDT 04/04/2025 1:31 AM CDT Aleja Frank DO CHEMISTRY ORDERABLES Final Resul t [facility] [employer] [facility] CLIA# [id number] [address] [place] [address] * PHOSPHORUS (04/04/2025 1:24 AM CDT) PHOSPHORUS 2.6 2.5 - 4.5 mg/dL 04/04/2025 9:09 AM CDT [facility] LABORATORY SERVICES [facility] Blood Venipuncture / Unknown 04/04/2025 1:24 AM CDT 04/04/2025 1:31 AM CDT [place] Zac DO CHEMISTRY ORDERABLES Final Resul t Performing Organization Address [facility] Co de Phone Number [facility] CLIA# [id number] [address] [place] [address] * MAGNESIUM LEVEL (04/04/2025 1:24 AM CDT) MAGNESIUM 2.1 1.6 - 2.4 mg/dL 04/04/2025 9:09 AM CDT [facility] Blood Venipuncture / Unknown 04/04/2025 1:24 AM CDT 04/04/2025 1:31 AM CDT Aleja Frank DO CHEMISTRY ORDERABLES Final Resul t Performing Organization Address [facility] Co de Phone Number [facility] [employer] [facility]# [id number] [address] [place] [address] * FERRITIN (04/04/2025 1:24 AM CDT) Pathologist [facility] FERRITIN 233.0 30.0 - 400.0 ng/mL 04/04/2025 9:09 AM CDT [facility] Blood Venipuncture / Unknown 04/04/2025 1:24 AM CDT 04/04/2025 1:31 AM CDT [place] Zac DO CHEMISTRY ORDERABLES Final Resul t Performing Organization Address City/[facility]/ZIP Co de Phone Number [facility] [facility]# [id number] [address] [place] [address] * GLUCOSE LEVEL (04/02/2025 1:41 PM CDT) Blood us Eric Ding MD CHEMISTRY ORDERABLES Final Resu lt * PET BONE IMG W CT SKB (04/02/2025 11:55 AM CDT) Anatomical Region Laterality Modality Positron Emissio n Tomography (PET) Eric Ding MD PE ORDERABLES Final Result from Last 3 Months Insurance MEDICARE PART A AND B MEDICARE PART A AND B RX [employer] RX Member Subscriber Plan / Payer ( fective 2024-Present) Name:Shorty Sheldon Relation to Subscriber:Self Name:Shorty Sheldon Payer ID:Not on file Group ID:[id number] Type:RX Medicare Part D Address: [address] RX [employer] PLANS (INTERNAL) [facility] Plans Advance Directives For more information, please contact: [phone] Documents on File Type Date Recorded Patient Inspecting And Testing Lead Hand Expl anation Advance Directive POA 04/05/2025 4:14 PM A dvance Directive POA Advance Directive Living Will 04/05/2025 4:13 PM Advance Directive Living Will * Full Code (Latest Code Status on File) Date Activated Date Inactivated Comments 04/05/2025 6:46 PM 04/09/2025 5:21 PM * Full Code Date Activated Date Inactivated Comments 04/03/2025 10:18 PM 04/05/2025 6:46 PM Care Teams Ductfixing Plumber Relationship Specialty Start Date End Date Jack Lezama MD [address] [place] [address] PCP - General Family Practice 03/27/25
--- OUTSIDE RECORDS SUMMARY | 2025-04-29 11:57 | XMS_ITS | Encounter Summary ---
Author Organization [facility] Address [address] [place] [address] Phone Care Team Providers Care Biztalk Architect Name Role Phone Tucker Del Rosario DO Primary Care Provider Reason for Visit * Reason Comments Medication Refill Encounter Details Date Type Department Care Team (Late st Contact Info) Description 11/26/2020 Refill [facility] PHYSICIAN GROUP PULMONOLOGY [address] [place] [phone] Donovan De Santiago MD [address] [place] [phone] Medication Refill Social History Tobacco Use Types Packs/Day Years Used Date Smoking Tobacco: Former Smokeless Tobacco: Never Alcohol Use Standard Drinks/Week Comments No 0 (1 standard drink = 0.6 oz pur e alcohol) former daily drinker Sex and Gender Information Value Date Recorded Sex Assigned at Not on file Legal Sex Male 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
--- OUTSIDE RECORDS SUMMARY | 2025-04-29 11:57 | XMS_ITS | Encounter Summary ---
Author Organization [facility] Address [address] [place] [address] [place] [address] Phone Care Team Providers Care Cs Associate Name Role Phone Nick Del Rosarioter Marta ROQUE Primary Care Provider [phone] Reason for Visit * Reason Comments Medication Refill Encounter Details Date Type Department Care Team (Late st Contact Info) Description 03/26/2021 Refill [facility] PULMONOLOGY [address] [place] [phone] Donovan De Santiago MD [address] [place] [phone] Medication Refill Social History Tobacco Use Types Packs/Day Years Used Date Smoking Tobacco: Former Smokeless Tobacco: Never Alcohol Use Standard Drinks/Week Comments No 0 (1 standard drink = 0.6 oz pur e alcohol) former daily drinker Sex and Gender Information Value Date Recorded Sex Assigned at Not on file Legal Sex Male 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
--- OUTSIDE RECORDS SUMMARY | 2025-04-29 11:57 | XMS_ITS | Encounter Summary ---
Author Organization [facility] Address [address] [place] [address] [place] [place] [address] Phone Care Team Providers Care Health Care Legal Assistant Name Role Phone Tucker Del Rosario DO Primary Care Provider [phone] Reason for Visit * Reason Comments Medication Refill Encounter Details Date Type Department Care Team (Late st Contact Info) Description 12/03/2020 Refill [facility] PULMONOLOGY [address] [place] [phone] Donovan De Santiago MD [address] [place] [phone] Medication Refill Social History Tobacco Use Types Packs/Day Years Used Date Smoking Tobacco: Former Smokeless Tobacco: Never Alcohol Use Standard Drinks/Week Comments No 0 (1 standard drink = 0.6 oz pur e alcohol) former daily drinker Sex and Gender Information Value Date Recorded Sex Assigned at Not on file 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
--- OUTSIDE RECORDS SUMMARY | 2025-04-29 11:57 | XMS_ITS | Encounter Summary ---
Author Organization [facility] Address [address] [place] [place] [address] Phone Care Team Providers Care Management Professionals Name Role Phone Tucker Del Rosario DO Primary Care Provider Reason for Visit * Reason Comments Medication Refill Encounter Details Date Type Department Care Team (Late st Contact Info) Description 03/04/2021 Refill [facility] PULMONOLOGY #1 [place] [phone] Donovan De Santiago MD [address]2 [place] [address] Medication Refill Social History Tobacco Use Types Packs/Day Years Used Date Smoking Tobacco: Former Smokeless Tobacco: Never Alcohol Use Standard Drinks/Week Comments No 0 (1 standard drink = 0.6 oz pur e alcohol) former daily drinker Sex and Gender Information Value Date Recorded Sex Assigned at Not on file Legal 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
--- OUTSIDE RECORDS SUMMARY | 2025-04-29 11:57 | XMS_ITS | Encounter Summary ---
Author Organization [facility] Address [address] [place] [address] [place] [address] Phone Care Team Providers Care Dietitian Name Role Phone Tucker Del Rosario DO Primary Care Provider [phone] Reason for Visit * Reason Comments Medication Refill Encounter Details Date Type Department Care Team (Late st Contact Info) Description 03/02/2021 Refill [facility] PULMONOLOGY #1 [place] [phone] Donovan De Santiago MD #2 [place] [phone] Medication Refill Social History Tobacco Use Types Packs/Day Years Used Date Smoking Tobacco: Former Smokeless Tobacco: Never Alcohol Use Standard Drinks/Week Comments No 0 (1 standard drink = 0.6 oz pur e alcohol) former daily drinker Sex and Gender Information Value Date Recorded Sex Assigned at Not on file Legal Sex Male 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
--- OUTSIDE RECORDS SUMMARY | 2025-04-29 11:57 | XMS_ITS | Encounter Summary ---
Author Organization [facility] Address [address] [place] [address] Phone Care Team Providers Care Window Framer Name Role Phone Miguel Ángel Tucker Marta ROQUE Primary Care Provider Reason for Visit * Reason Comments Medication Refill Encounter Details Date Type Department Care Team (Late st Contact Info) Description 07/28/2021 Refill [facility] & [facility] Medicine [facility] #2 [place] [phone] Donovan De Santiago MD [address] [place] [phone] Medication Refill Social History Tobacco Use Types Packs/Day Years Used Date Smoking Tobacco: Former Smokeless Tobacco: Never Alcohol Use Standard Drinks/Week Comments No 0 (1 standard drink = 0.6 oz pur e alcohol) former daily drinker Sex and Gender Information Value Date Recorded Sex Assigned at Not on file Legal 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 Gender Identity Not on file Sexual Orientation [...] 01/20/21 Office Visit Donovan De Santiago MD [facility] & Sleep [facility] [address] Showing recent visits within [...] 01/20/21 Office Visit Donovan De Santiago MD [facility] & [facility] [address] Showing recent visits within past 365 [...] emphysema documented in this encounter Care Teams Window Framer Relationship Specialty Start Date End Date Tucker Del Rosario DO [address] [place] [address] PCP - General Internal Medicine 10/04/17 documented as of this encounter
--- OUTSIDE RECORDS SUMMARY | 2025-04-29 11:57 | XMS_ITS | Encounter Summary ---
Author Organization [facility] Address [address] [place] [address] Phone Care Team Providers Care Cnc Lathe Machinist Name Role Phone Miguel ÁngelTucker Marta ROQUE Primary Care Provider Reason for Visit * Reason Comments Medication Refill Encounter Details Date Type Department Care Team (Late st Contact Info) Description 01/28/2021 Refill [facility] PULMONOLOGY #1 [place] [phone] Donovan De Santiago MD [address]2 [place] [phone] Medication Refill Social History Tobacco Use Types Packs/Day Years Used Date Smoking Tobacco: Former Smokeless Tobacco: Never Alcohol Use Standard Drinks/Week Comments No 0 (1 standard drink = 0.6 oz pur e alcohol) former daily drinker Sex and Gender Information Value Date Recorded Sex Assigned at Not on file Legal 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
--- OUTSIDE RECORDS SUMMARY | 2025-04-29 11:57 | XMS_ITS | Encounter Summary ---
Author Organization [facility] Address [address] [place] [address] Phone Care Team Providers Care Jailer Chief Name Role Phone Miguel ÁngelTucker Marta ROQUE Primary Care Provider Reason for Visit * Reason Comments Medication Refill Encounter Details Date Type Department Care Team (Late st Contact Info) Description 04/27/2021 Refill [facility] - Pul[facility]ology & Sleep Medicine [facility] #2 [place] [phone] Donovan De Santiago MD #2 [place] [phone] Medication Refill Social History Tobacco Use Types Packs/Day Years Used Date Smoking Tobacco: Former Smokeless Tobacco: Never Alcohol Use Standard Drinks/Week Comments No 0 (1 standard drink = 0.6 oz pur e alcohol) former daily drinker Sex and Gender Information Value Date Recorded Sex Assigned at Not on file Legal Sex Male 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 [address] Showing recent visits within past [...] 01/20/21 Office Visit Donovan De Santiago MD [facility] & [facility] [address] Showing recent visits within past [...] 01/20/21 Office Visit Donovan De Santiago MD [facility] [address] Showing recent visits within past [...] emphysema documented in this encounter Care Teams Jailer Chief Relationship Specialty Start Date End Date Tucker Del Rosario DO [address] [place] [address] PCP - General Internal Medicine 10/04/17 documented as of this encounter
--- OUTSIDE RECORDS SUMMARY | 2025-04-29 11:57 | XMS_ITS | Encounter Summary ---
Author Organization [facility] Address [address] [place] [address] [place] [address] Phone Care Team Providers Care Appliance Service Supervisor Name Role Phone Tucker Del Rosario DO Primary Care Provider [phone] Reason for Visit * Reason Comments Medication Refill Encounter Details Date Type Department Care Team (Late st Contact Info) Description 12/29/2020 Refill [facility] PULMONOLOGY #1 [place] [phone] Donovan De Santiago MD [address] [place] [phone] Medication Refill Social History Tobacco Use Types Packs/Day Years Used Date Smoking Tobacco: Former Smokeless Tobacco: Never Alcohol Use Standard Drinks/Week Comments No 0 (1 standard drink = 0.6 oz pur e alcohol) former daily drinker Sex and Gender Information Value Date Recorded Sex Assigned at Not on file Legal 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
--- OUTSIDE RECORDS SUMMARY | 2025-04-29 11:58 | XMS_ITS | Clinical Summary ---
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 Gender Identity Not on file Sexual Orientation [...] 11:21 AM CDT Height 170.2 cm (5' 7) 01/20/2021 11:21 AM CDT Body Mass Index 20.05 01/20/2021 11:21 AM CDT Plan of Treatment Health Maintenance Due Date Last Done Comments Hepatitis C Virus (HCV) Screening 1935 TdaP Immunization 1935 Pneumococcal Immunization (5 0+ years) (1 of 2 - PCV) 1956 Zoster Immunization (1 of 2) 1987 Respiratory Syncytial Virus (RSV) Immunization (Adult) (1 - 1-dose 75+ series) 2012 SARS-COV-2 Immunization (4 - season) 2024 08/21/2021, 12/29/2020, 11/26/2020 Influenza Immunization (#1) 06/10/202511/10, 10/16/2018 Hepatitis B Immunization Aged Out No longer eligible based on patient's age to complete this topic Human Papillomavirus (HPV) Immunization Aged Out No longer eligible b ased on patient's age to complete this topic Meningococcal Immunization (ACWY) Aged Out No longer eligible b ased on patient's age to complete this topic Rotavirus Immunization Aged Out No lo nger eligible based on patient's age to complete this topic Insurance MEDICARE Care Teams Shoe Designer Relationship Specialty Start Date End Date Tucker Del Rosario DO [address] [place] [address] PCP - General Internal Medicine 10/04/17
--- OUTSIDE RECORDS SUMMARY | 2025-04-29 11:58 | XMS_ITS | Encounter Summary ---
Author Organization [facility] Address [address] [place] [address] [place] [place] [address] Phone Care Team Providers Care Softball Umpire Name Role Phone Tucker Del Rosario DO Primary Care Provider Reason for Visit * Reason Comments Medication Refill Encounter Details Date Type Department Care Team (Late st Contact Info) Description 09/27/2020 Refill [facility] PULMONOLOGY #1 [place] [phone] Donovan De Santiago MD [address] [place] [phone] Medication Refill Social History Tobacco Use Types Packs/Day Years Used Date Smoking Tobacco: Former Smokeless Tobacco: Never Alcohol Use Standard Drinks/Week Comments No 0 (1 standard drink = 0.6 oz pur e alcohol) former daily drinker Sex and Gender Information Value Date Recorded Sex Assigned at Not on file Legal Sex Male 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
--- OUTSIDE RECORDS SUMMARY | 2025-04-29 11:58 | XMS_ITS | Encounter Summary ---
Author Organization [facility] Address [address] [place] [address] Phone Care Team Providers Care Heel Sander Rubber Name Role Phone Tucker Del Rosario DO Primary Care Provider [phone] Reason for Visit * Reason Comments Medication Refill Encounter Details Date Type Department Care Team (Late st Contact Info) Description 08/31/2020 Refill [facility] PULMONOLOGY #1 [place] [phone] Donovan De Santiago MD #[address] [place] [phone] Medication Refill Social History Tobacco Use Types Packs/Day Years Used Date Smoking Tobacco: Former Smokeless Tobacco: Never Alcohol Use Standard Drinks/Week Comments No 0 (1 standard drink = 0.6 oz pur e alcohol) former daily drinker Sex and Gender Information Value Date Recorded Sex Assigned at Not on file Legal Sex Male 1:21 PM DIVE SUPERVISOR Gender Identity Not on file Sexual Orientation Not on file documented as of this encounter Plan of Treatment Not on file documented as of this encounter Visit Diagnoses Diagnosis Panlobular emphysema (HCC) Other emphysema documented in this encounter Care Teams Heel Sander Rubber Relationship Specialty Start Date End Date Tucker Del Rosario DO [address] [place] [address] PCP - General Internal Medicine 10/04/17 documented as of this encounter
--- OUTSIDE RECORDS SUMMARY | 2025-04-29 11:58 | XMS_ITS | Encounter Summary ---
Author Organization [facility] Address [address] [place] [address] Phone Care Team Providers Care Interline Clerk Name Role Phone Miguel ÁngelTucker Marta ROQUE Primary Care Provider Reason for Visit * Reason Comments Medication Refill Encounter Details Date Type Department Care Team (Late st Contact Info) Description 11/23/2021 Refill [facility] - Pulmonology & Sleep Medicine [facility] #2 [place] [phone] Donovan De Santiago MD #2 [place] [phone] Medication Refill Social History Tobacco Use Types Packs/Day Years Used Date Smoking Tobacco: Former Smokeless Tobacco: Never Alcohol Use Standard Drinks/Week Comments No 0 (1 standard drink = 0.6 oz pur e alcohol) former daily drinker Sex and Gender Information Value Date Recorded Sex Assigned at Not on file Legal Sex Male 1:21 PM TECHNICAL SALES DIRECTOR Gender Identity Not on file Sexual Orientation Not on file documented as of this encounter Miscellaneous Notes * Telephone Encounter - Shira Mckeon RN - 11/23/2021 10:32 AM TECHNICAL SALES DIRECTOR Medication failed the protocol, provider to review [...] De Santiago MD [facility] Showing recent visits within past 365 days and meeting all other requirements Future Appointments No visits were found meeting these conditions. Showing future appointments within next 90 days and meeting all other requirements NICAL SALES DIRECTOR documented in this encounter Plan of Treatment Not on file documented as of this encounter Visit Diagnoses Diagnosis Panlobular emphysema (HCC) Other emphysema documented in this encounter Care Teams Interline Clerk Relationship Specialty Start Date End Date Tucker Del Rosario DO [address] [place] [address] PCP - General Internal Medicine 10/04/17 documented as of this encounter
--- OUTSIDE RECORDS SUMMARY | 2025-04-29 11:58 | XMS_ITS | Encounter Summary ---
Author Organization [facility] Address [address] [place] [address] Phone Care Team Providers Care Buttonhole Marker Name Role Phone Tucker Del Rosario DO Primary Care Provider Reason for Visit * Reason Comments Medication Refill Encounter Details Date Type Department Care Team (Late st Contact Info) Description 05/28/2020 Refill [facility] PULMONOLOGY #1 [place] [phone] Donovan De Santiago MD #2 [place] [address] Medication Refill Social History Tobacco Use Types Packs/Day Years Used Date Smoking Tobacco: Former Smokeless Tobacco: Never Alcohol Use Standard Drinks/Week Comments No 0 (1 standard drink = 0.6 oz pur e alcohol) former daily drinker Sex and Gender Information Value Date Recorded Sex Assigned at Not on file Legal Sex Male 1:21 PM 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
--- OUTSIDE RECORDS SUMMARY | 2025-04-29 11:58 | XMS_ITS | Encounter Summary ---
Author Organization [facility] Address [address] [place] [address] Phone Care Team Providers Care Dot Compliance Coordinator Name Role Phone Miguel ÁngelTucker Marta ROQUE Primary Care Provider [phone] Reason for Visit * Reason Comments Medication Refill Encounter Details Date Type Department Care Team (Late st Contact Info) Description 01/21/2022 Refill [facility] - Pulmonology & Sleep Medicine [facility] #2 [place] [address] Donovan De Santiago MD #2 [place] [phone] Medication Refill Social History Tobacco Use Types Packs/Day Years Used Date Smoking Tobacco: Former Smokeless Tobacco: Never Alcohol Use Standard Drinks/Week Comments No 0 (1 standard drink = 0.6 oz pur e alcohol) former daily drinker Sex and Gender Information Value Date Recorded Sex Assigned at Not on file Legal Sex Male 1:21 PM CUSTOMER 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 Gender Identity Not on file Sexual Orientation Not on file documented as of this encounter Miscellaneous Notes * Telephone Encounter - Shira Mckeon RN - 01/21/2022 11:48 AM CDT Patient needs and appointment documented in this encounter Plan of Treatment Not on file documented as of this encounter Visit Diagnoses Diagnosis Panlobular emphysema (HCC) Other emphysema documented in this encounter Care Teams Dot Compliance Coordinator Relationship Specialty Start Date End Date Tucker Del Rosario DO [address] [place] [address] PCP - General Internal Medicine 10/04/17 documented as of this encounter
--- OUTSIDE RECORDS SUMMARY | 2025-04-29 11:58 | XMS_ITS | Encounter Summary ---
Author Organization [facility] Address [address] [place] [address] Phone Care Team Providers Care Economic Manager Name Role Phone Tucker Del Rosario DO Primary Care Provider Reason for Visit * Reason Comments Medication Refill Encounter Details Date Type Department Care Team (Late st Contact Info) Description 04/30/2020 Refill [facility] GROUP PULMONOLOGY #1 [place] [phone] Donovan De Santiago MD #2 [place] [phone] Medication Refill Social History Tobacco Use Types Packs/Day Years Used Date Smoking Tobacco: Former Smokeless Tobacco: Never Alcohol Use Standard Drinks/Week Comments No 0 (1 standard drink = 0.6 oz pur e alcohol) former daily drinker Sex and Gender Information Value Date Recorded Sex Assigned at Not on file Legal Sex Male 1:21 PM BEEF 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
--- OUTSIDE RECORDS SUMMARY | 2025-04-29 11:58 | XMS_ITS | Encounter Summary ---
Author Organization [facility] Address [address] [place] [address] Phone Care Team Providers Care Career Development Counselor Name Role Phone Miguel ÁngelTucker Marta ROQUE Primary Care Provider Reason for Visit * Reason Comments Medication Refill Encounter Details Date Type Department Care Team (Late st Contact Info) Description 01/21/2022 Refill [facility] - Pulmonology & Sleep Medicine - [place] #2 [place] [address] Kayla Dowling APRN, [facility] [address] [address] Medication Refill Social History Tobacco Use Types Packs/Day Years Used Date Smoking Tobacco: Former Smokeless Tobacco: Never Alcohol Use Standard Drinks/Week Comments No 0 (1 standard drink = 0.6 oz pur e alcohol) former daily drinker Sex and Gender Information Value Date Recorded Sex Assigned at Not on file Legal Sex Male 1:21 PM CLINICAL SERVICES SPECIALIST Gender Identity Not on file Sexual Orientation Not on file documented as of this encounter Miscellaneous Notes * Telephone Encounter - Shira Mckeon RN - 01/21/2022 12:39 PM CDT Patient needs an appointment documented in this encounter Plan of Treatment Not on file documented as of this encounter Visit Diagnoses Not on filedocumented in this encounter Care Teams Career Development Counselor Relationship Specialty Start Date End Date Tucker Del Rosario DO [address] [place] [address] PCP - General Internal Medicine 10/04/17 documented as of this encounter
--- OUTSIDE RECORDS SUMMARY | 2025-04-29 11:58 | XMS_ITS | Encounter Summary ---
Author Organization [facility] Address [address] [place] [address] Phone Care Team Providers Care Sole Stitcher Hand Name Role Phone Tucker Del Rosario DO Primary Care Provider Reason for Visit * Reason Comments Medication Refill Encounter Details Date Type Department Care Team (Late st Contact Info) Description 10/21/2020 Refill [facility]IAN GROUP PULMONOLOGY #1 [place] [phone] Donovan De Santiago MD #2 [place] [phone] Medication Refill Social History Tobacco Use Types Packs/Day Years Used Date Smoking Tobacco: Former Smokeless Tobacco: Never Alcohol Use Standard Drinks/Week Comments No 0 (1 standard drink = 0.6 oz pur e alcohol) former daily drinker Sex and Gender Information Value Date Recorded Sex Assigned at Not on file Legal 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
--- OUTSIDE RECORDS SUMMARY | 2025-04-29 11:58 | XMS_ITS | Encounter Summary ---
Author Organization [facility] Address [address] [place] [address] Phone Care Team Providers Care Program Director Substance Abuse Name Role Phone Miguel ÁngelTucker Marta ROQUE Primary Care Provider Reason for Visit * Reason Comments Medication Refill Encounter Details Date Type Department Care Team (Late st Contact Info) Description 09/23/2021 Refill [facility] - Pulmonology & Sleep Medicine [facility] [address] [place] [phone] Donovan De Santiago MD [address] [place] [phone] Medication Refill Social History Tobacco Use Types Packs/Day Years Used Date Smoking Tobacco: Former Smokeless Tobacco: Never Alcohol Use Standard Drinks/Week Comments No 0 (1 standard drink = 0.6 oz pur e alcohol) former daily drinker Sex and Gender Information Value Date Recorded Sex Assigned at Not on file Legal Sex Male 1:21 PM HOSPICE NURSE Gender Identity Not on file Sexual Orientation Not on file documented as of this encounter Miscellaneous Notes * Telephone Encounter - Shira Mckeon RN - 09/23/2021 11:55 AM HOSPICE NURSE Medication failed the protocol, provider to review [...] [facility] Pul & Sleep [facility] [address] Showing recent visits within past 365 [...] Office Visit Donovan De Santiago MD [facility] & Sleep [facility] [address] Showing recent visits within past 365 days and meeting all other requirements Future Appointments No visits were found meeting these conditions. Showing future appointments within next 90 days and meeting all other requirements ICE NURSE documented in this encounter Plan of Treatment Not on file documented as of this encounter Visit Diagnoses Diagnosis Panlobular emphysema (HCC) Other emphysema documented in this encounter Care Teams Program Director Substance Abuse Relationship Specialty Start Date End Date Tucker Del Rosario DO [address] [place] [id number] PCP - General Internal Medicine 10/04/17 documented as of this encounter
--- OUTSIDE RECORDS SUMMARY | 2025-04-29 11:58 | XMS_ITS | Encounter Summary ---
Author Organization [facility] Address [address] [place] [place] [address] Phone Care Team Providers Care Chess Instructor Name Role Phone Miguel Ángel Tucker Marta ROQUE Primary Care Provider Reason for Visit * Reason Comments Medication Refill Encounter Details Date Type Department Care Team (Late st Contact Info) Description 09/01/[address] [facility] - Pulmonology & Sleep Medicine [facility] [address] [place] [phone] Donovan De Santiago MD [address] [place] [phone] Medication Refill Social History Tobacco Use Types Packs/Day Years Used Date Smoking Tobacco: Former Smokeless Tobacco: Never Alcohol Use Standard Drinks/Week Comments No 0 (1 standard drink = 0.6 oz pur e alcohol) former daily drinker Sex and Gender Information Value Date Recorded Sex Assigned at Not on file Legal Sex Male 1:21 PM RIPRAP WORKER Gender Identity Not on file Sexual Orientation Not on file documented as of this encounter Miscellaneous Notes * Telephone Encounter - Shira Mckeon RN - 09/01/2021 9:31 AM RIPRAP WORKER Medication failed the protocol, provider to review [...] Visit Donovan De Santiago MD [facility] & Sleep [facility] [address] Showing recent visits within past 365 [...] Visit Donovan De Santiago MD [facility] & Sleep [facility] [address] Showing recent visits within past 365 days and meeting all other requirements Future Appointments No visits were found meeting these conditions. Showing future appointments within next 90 days and meeting all other requirements AP WORKER documented in this encounter Plan of Treatment Not on file documented as of this encounter Visit Diagnoses Diagnosis Panlobular emphysema (HCC) Other emphysema documented in this encounter Care Teams Chess Instructor Relationship Specialty Start Date End Date Tucker Del Rosario DO [address] [place] [id number] PCP - General Internal Medicine 10/04/17 documented as of this encounter
--- OUTSIDE RECORDS SUMMARY | 2025-04-29 11:58 | XMS_ITS | Encounter Summary ---
Author Organization [facility] Address [address] [place] [address] [place] [address] Phone Care Team Providers Care Chemical Engineering Intern Name Role Phone Miguel ÁngelTucker Marta ROQUE Primary Care Provider Reason for Visit * Reason Comments Medication Refill Encounter Details Date Type Department Care Team (Late st Contact Info) Description 10/27/2021 Refill [facility] - Pulmonology & Sleep Medicine [facility] [address] [place] [phone] Donovan De Santiago MD [address] [place] [phone] Medication Refill Social History Tobacco Use Types Packs/Day Years Used Date Smoking Tobacco: Former Smokeless Tobacco: Never Alcohol Use Standard Drinks/Week Comments No 0 (1 standard drink = 0.6 oz pur e alcohol) former daily drinker Sex and Gender Information Value Date Recorded Sex Assigned at Not on file Legal Sex Male 1:21 PM WEIGHT ENGINEER Gender Identity Not on file Sexual Orientation Not on file documented as of this encounter Miscellaneous Notes * Telephone Encounter - Shira Mckeon RN - 10/27/2021 10:03 AM WEIGHT ENGINEER Medication failed the protocol, provider to review [...] De Santiago MD [facility] Showing recent visits within past 365 days and meeting all other requirements Future Appointments No visits were found meeting these conditions. Showing future appointments within next 90 days and meeting all other requirements HT ENGINEER documented in this encounter Plan of Treatment Not on file documented as of this encounter Visit Diagnoses Diagnosis Panlobular emphysema (HCC) Other emphysema documented in this encounter Care Teams Chemical Engineering Intern Relationship Specialty Start Date End Date Tucker Del Rosario DO [address] [place] [id number] PCP - General Internal Medicine 10/04/17 documented as of this encounter
--- OUTSIDE RECORDS SUMMARY | 2025-04-29 11:58 | XMS_ITS | Encounter Summary ---
Author Organization [facility] Address [address] [place] [address] Phone Care Team Providers Care Utility Forester Name Role Phone Miguel Ángel Tucker Marta ROQUE Primary Care Provider Reason for Visit * Reason Comments Medication Refill Encounter Details Date Type Department Care Team (Late st Contact Info) Description 09/28/2021 Refill [facility] - Pulmonology & Sleep Medicine [facility] [address] [place] [phone] Donovan De Santiago MD [address] [place] [phone] Medication Refill Social History Tobacco Use Types Packs/Day Years Used Date Smoking Tobacco: Former Smokeless Tobacco: Never Alcohol Use Standard Drinks/Week Comments No 0 (1 standard drink = 0.6 oz pur e alcohol) former daily drinker Sex and Gender Information Value Date Recorded Sex Assigned at Not on file Legal Sex Male 1:21 PM LEAD CARE MANAGER Gender Identity Not on file Sexual Orientation Not on file documented as of this encounter Miscellaneous Notes * Telephone Encounter - Shira Mckeon RN - 09/28/2021 12:00 PM LEAD CARE MANAGER Medication failed the protocol, provider to review [...] De Santiago MD [facility] & Sleep [facility] Showing recent visits within past 365 days and meeting all other requirements Future Appointments No visits were found meeting these conditions. Showing future appointments within next 90 days and meeting all other requirements CARE MANAGER documented in this encounter Plan of Treatment Not on file documented as of this encounter Visit Diagnoses Not on filedocumented in this encounter Care Teams Utility Forester Relationship Specialty Start Date End Date Tucker Del Rosario DO [address] [place] [id number] PCP - General Internal Medicine 10/04/17 documented as of this encounter
--- OUTSIDE RECORDS SUMMARY | 2025-04-29 11:58 | XMS_ITS | Encounter Summary ---
Author Organization [facility] Address [address] [place] [address] [place] [address] Phone Care Team Providers Care Development Associate Name Role Phone Tucker Del Rosario DO Primary Care Provider [phone] Reason for Visit * Reason Comments Medication Refill Encounter Details Date Type Department Care Team (Late st Contact Info) Description 07/28/2020 Refill [facility] PULMONOLOGY [address] [place] [phone] Donovan De Santiago MD [address] [place] [phone] Medication Refill Social History Tobacco Use Types Packs/Day Years Used Date Smoking Tobacco: Former Smokeless Tobacco: Never Alcohol Use Standard Drinks/Week Comments No 0 (1 standard drink = 0.6 oz pur e alcohol) former daily drinker Sex and Gender Information Value Date Recorded Sex Assigned at Not on file Legal Sex Male 1:21 PM PURSE SEINING HAND Gender Identity Not on file Sexual Orientation Not on file documented as of this encounter Plan of Treatment Not on file documented as of this encounter Visit Diagnoses Diagnosis Panlobular emphysema (HCC) Other emphysema documented in this encounter Care Teams Development Associate Relationship Specialty Start Date End Date Tucker Del Rosario DO [address] [place] [address] PCP - General Internal Medicine 10/04/17 documented as of this encounter
--- OUTSIDE RECORDS SUMMARY | 2025-04-29 11:58 | XMS_ITS | Encounter Summary ---
Author Organization [facility] Address [address] [place] [address] Phone Care Team Providers Care Airport Operations Supervisor Name Role Phone Tucker Del Rosario DO Primary Care Provider [phone] Reason for Visit * Reason Comments Medication Refill Encounter Details Date Type Department Care Team (Late st Contact Info) Description 08/24/2021 Refill [facility] - Pulmonology & Sleep Medicine [facility] [address] [place] [phone] Donovan De Santiago MD [address] [place] [phone] Medication Refill Social History Tobacco Use Types Packs/Day Years Used Date Smoking Tobacco: Former Smokeless Tobacco: Never Alcohol Use Standard Drinks/Week Comments No 0 (1 standard drink = 0.6 oz pur e alcohol) former daily drinker Sex and Gender Information Value Date Recorded Sex Assigned at Not on file Legal Sex Male 1:21 PM [employer] Gender Identity Not on file Sexual Orientation Not on file documented as of this encounter Plan of Treatment Not on file documented as of this encounter Visit Diagnoses Diagnosis Panlobular emphysema (HCC) Other emphysema documented in this encounter Care Teams Airport Operations Supervisor Relationship Specialty Start Date End Date Tucker Del Rosario DO [address] [place] [id number] PCP - General Internal Medicine 10/04/17 documented as of this encounter
--- OUTSIDE RECORDS SUMMARY | 2025-04-29 11:58 | XMS_ITS | Clinical Summary ---
Author Organization [facility] Address [facility] [place] [address] Care Team Providers Care Dental Mold Maker Name Role Phone Unavailable Primary Care Provider [...] 10:35 AM CDT Height 170.2 cm (5' 7) 05/22/2014 10:35 AM CDT Body Mass Index [...]
--- OUTSIDE RECORDS SUMMARY | 2025-04-29 11:58 | XMS_ITS | Encounter Summary ---
Author Organization [facility] Address [address] 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 Name Role Phone Tucker Del Rosario DO Primary Care Provider [phone] Reason for Visit * Reason Comments Medication Refill Encounter Details Date Type Department Care Team (Late st Contact Info) Description 12/24/2021 Refill [facility] - Pulmonology & Sleep Medicine - [place] [address] [place] [phone] Kayla Dowling APRN, [facility] [address] [address] Medication Refill Social History Tobacco Use Types Packs/Day Years Used Date Smoking Tobacco: Former Smokeless Tobacco: Never Alcohol Use Standard Drinks/Week Comments No 0 (1 standard drink = 0.6 oz pur e alcohol) former daily drinker Sex and Gender Information Value Date Recorded Sex Assigned at Not on file 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
[2025-04-29 19:55] LABS: Hematocrit 33.3 % (42.0-52.0); Hemoglobin 10.3 g/dL (14.0-18.0); Immature Granulocyte Percent A 0.4 % (0-0.5); Lymphocytes Absolute Auto 0.99 K/mm3 (0.9-3.2); Mean Corpuscular HGB Conc 30.9 g/dl (32-36); Mean Corpuscular Hemoglobin 28.3 pg (26-34); Mean Corpuscular Volume 91.5 fl (80-100); Nucleated Red Blood Cells Absolute Auto 0.000 K/mm3 (0.0-0.012); Nucleated Red Blood Cells Perc 0.0 % (0.0-0.2); Platelet Count Result 198 k/mm3 (150-375); Red Blood Count 3.64 M/mm3 (4.6-6.20); White Blood Count 5.5 K/mm3 (4.5-10.0)
== END 2025-04-29 11:53 | disposition home or self-care (01) ==
PROVIDERS: PCP Family Medicine; Visit Provider Family Medicine
DX: R79.89 Other specified abnormal findings of blood chemistry (principal); Z72.0 Tobacco use
CPT/HCPCS: 36415; 85025

== ENCOUNTER 2025-08-23 13:46 | Outpatient (CLI) | payer MEDICARE, SELFPAY ==
--- NOTE | ~2025-08-23 | CT_ITS ---
EXAMINATION:CT diagnostic chest wo con DATE: 08/23/2025 14:07 INDICATION: Lung mass TECHNIQUE: Computed tomography (CT) of the chest was performed without intravenous contrast. The dose-length product (DLP) was 67.83 mGy-cm. COMPARISON: Previous CT exams back to January 2024. FINDINGS: 1.3 x 1.4 cm right lower lobe mass is progressively decreased in size. Scattered other nodules are grossly stable. No new nodules or masses. Severe emphysematous changes throughout the lung arellano. Heart and great vessels stable. No acute process seen in the visualized upper abdomen extrathoracic soft tissues or bony thorax. IMPRESSION: Gradually decreasing size of right lower lobe mass. Other nodules not clearly changed. Follow-up chest CT in 6 months recommended to confirm 24 months stability or radiographic benignity. Reviewed, dictated and finalized at location A. R TEST IMPRESSION: Gradually decreasing size of right lower lobe mass. Other nodules n ot clearly changed. Follow-up chest CT in 6 months recommended to confirm 24 mo nths stability or radiographic benignity.
== END 2025-08-23 13:47 | disposition home or self-care (01) ==
PROVIDERS: PCP Family Medicine; Visit Provider Internal Medicine Pulmonary Disease
DX: R91.1 Solitary pulmonary nodule (principal)
CPT/HCPCS: 71250